=== PATIENT | male | born 1990 | race Caucasian/White ===

== ENCOUNTER 2017-12-31 20:22 | Inpatient (IN) | payer OTHER ==
[~2017-12-31] VITALS: Ht 167.6 cm; Wt 44.5 kg
[2017-12-31 20:45] VITALS: Ht 167.6 cm; Wt 44.5 kg
[2017-12-31 22:07] LABS: UA SPECIFIC GRAVITY 1.025 (1.005-1.035); microscopic required? YES; urine erythrocyte NEGATIVE (NEGATIVE)
[2017-12-31 22:38] LABS: AMPHETAMINE QUAL UR NONE DETECTED (See below)
[2017-12-31 22:48] LABS: T3 TOTAL 1.19 ng/mL
[2017-12-31 22:55] LABS: FREE T4 1.31 ng/dL (0.76-1.46); FREE THYROXINE INDEX 3.2 ug/dL (1.4-4.5); T4(THYROXINE) 10.4 ug/dL (4.7-13.3)
[2017-12-31 23:12] LABS: CK-MB < 0.5 ng/mL (0-3.6); CREATINE KINASE 36 U/L (39-308)
[2017-12-31 23:24] LABS: ERYTHROCYTE SED RATE 64 mm/hr (0-15)
[2017-12-31 23:27] LABS: PLATELET COUNT 318 x10^3mcL (130-400)
[2017-12-31 23:32] LABS: ALKALINE PHOSPHATASE 80 U/L (46-116); ALT/SGPT 16 U/L (16-63); AST/SGOT 26 U/L (15-37); BILIRUBIN TOTAL 0.31 mg/dL (0.20-1.00); C REACTIVE PROTEIN 4.7 mg/dL (<=0.9); CALCIUM 8.7 mg/dL (8.5-10.1); CHLORIDE SERUM 101 mmol/L (98-107); CREATININE SERUM 0.9 mg/dL (0.7-1.3); GFR1 > 60 mL/min; GLUCOSE SERUM 93 mg/dL (74-106); SODIUM SERUM 136 mmol/L (136-145)
[2017-12-31 23:33] LABS: ALBUMIN 2.7 g/dL (3.4-5.0); POTASSIUM SERUM 2.6 mmol/L (3.5-5.1); TOTAL PROTEIN, SERUM 8.6 g/dL (6.4-8.2)
[2017-12-31 23:36] LABS: BASOPHIL % 0 % (0-2); RED CELL DISTRIBUTION WIDTH 15.3 % (11.5-14.5)
[2018-01-01 00:59] VITALS: BP 117/78
[2018-01-01 06:04] VITALS: BP 111/71
[2018-01-01 06:42] LABS: PLATELET COUNT 303 x10^3mcL (130-400)
[2018-01-01 06:50] LABS: RED CELL DISTRIBUTION WIDTH 15.4 % (11.5-14.5)
[2018-01-01 07:11] LABS: CARBON DIOXIDE 21.6 mmol/L (21-32); CHLORIDE SERUM 109 mmol/L (98-107); CREATININE SERUM 0.6 mg/dL (0.7-1.3); GFR1 > 60 mL/min; GLUCOSE SERUM 93 mg/dL (74-106); MAGNESIUM 2.5 mg/dL (1.8-2.4); POTASSIUM SERUM 3.3 mmol/L (3.5-5.1); SODIUM SERUM 140 mmol/L (136-145)
[2018-01-01 07:25] LABS: IRON 14 ug/dL (65-170); TOTAL IRON BINDING CAPACITY 161 ug/dL (250-450)
[2018-01-01 08:56] LABS: AMPHETAMINE QUAL UR NONE DETECTED (See below)
[2018-01-01 09:01] VITALS: BP 115/76
[2018-01-01 11:05] LABS: BAND NEUTROPHIL 5 % (0-10); BASOPHIL 0 % (0-2); MONOCYTE 10 % (0-7); SEGMENTED NEUTROPHILS 65 % (37-75)
[2018-01-01 11:06] LABS: ovalocyte/elliptocyte 1+; rbc morphology (normal/abnorm) ABNORMAL (NORMAL)
[2018-01-01 11:07] LABS: burr cell (echinocyte) 1+
[2018-01-01 13:32] VITALS: BP 121/83
[2018-01-01 17:46] VITALS: BP 108/70
[2018-01-01 21:53] VITALS: BP 105/71
[2018-01-02 05:30] VITALS: BP 113/72
[2018-01-02 06:59] LABS: CARBON DIOXIDE 23.2 mmol/L (21-32); CHLORIDE SERUM 108 mmol/L (98-107); CREATININE SERUM 0.6 mg/dL (0.7-1.3); GFR1 > 60 mL/min; GLUCOSE SERUM 77 mg/dL (74-106); MAGNESIUM 1.9 mg/dL (1.8-2.4); POTASSIUM SERUM 3.3 mmol/L (3.5-5.1); SODIUM SERUM 138 mmol/L (136-145)
[2018-01-02 07:34] LABS: PLATELET COUNT 280 x10^3mcL (130-400)
[2018-01-02 09:08] VITALS: BP 118/73
[2018-01-02 10:45] LABS: BAND NEUTROPHIL 9 % (0-10); BASOPHIL 0 % (0-2); MONOCYTE 9 % (0-7); SEGMENTED NEUTROPHILS 62 % (37-75); ovalocyte/elliptocyte 1+; rbc morphology (normal/abnorm) ABNORMAL (NORMAL)
[2018-01-02 10:46] LABS: PLATELET MORPHOLOGY GIANT PLATELET SEEN; burr cell (echinocyte) 1+; tear drop cell (dacryocyte) 1+
[2018-01-02 13:47] VITALS: BP 122/70
[2018-01-02] MEDS ORDERED: DIF100 PO (14:40)
[2018-01-02 17:42] VITALS: BP 116/70
== END 2018-01-02 17:57 | disposition home or self-care (01) | DRG 391 ==
LOC: ED 20:22 → DU 01-01 00:06
PROVIDERS: Family Medicine; Specialist
DX: K20.9 Esophagitis, unspecified (principal); N17.0 Acute kidney failure with tubular necrosis; E43 Unspecified severe protein-calorie malnutrition; R65.10 Systemic inflammatory response syndrome (SIRS) of non-infectious origin without acute organ dysfunction; B37.0 Candidal stomatitis; E87.6 Hypokalemia; Z88.0 Allergy status to penicillin; Z91.048 Other nonmedicinal substance allergy status; R73.03 Prediabetes; D50.9 Iron deficiency anemia, unspecified; R13.10 Dysphagia, unspecified
CPT/HCPCS: 36600; 83880; 84439; 87804; J0692; J0696; J1450; J3370; J3475; J3480; J7030; Q0092

== ENCOUNTER 2018-06-12 14:44 | Emergency (ER) | payer OTHER ==
[~2018-06-12] VITALS: Ht 165.1 cm; Wt 47.2 kg
[~2018-06-12 14:44] MED LIST: DIF100 PO
[2018-06-12 15:12] VITALS: Ht 165.1 cm; Wt 47.2 kg
[2018-06-12 17:53] LABS: CALCIUM 8.6 mg/dL (8.5-10.1); CARBON DIOXIDE 25.2 mmol/L (21-32); CHLORIDE SERUM 98 mmol/L (98-107); GFR1 > 60 mL/min; GLUCOSE SERUM 85 mg/dL (74-106); POTASSIUM SERUM 3.4 mmol/L (3.5-5.1); SODIUM SERUM 131 mmol/L (136-145)
[2018-06-12 17:57] LABS: ALKALINE PHOSPHATASE 94 U/L (46-116); ALT/SGPT 11 U/L (16-63); AMYLASE 45 U/L (25-115); AST/SGOT 22 U/L (15-37); BILIRUBIN TOTAL 0.31 mg/dL (0.20-1.00); LIPASE 118 IU/L (73-393); PLATELET COUNT 257 x10^3mcL (130-400)
[2018-06-12 17:58] LABS: RED CELL DISTRIBUTION WIDTH 16.6 % (11.5-14.5)
[2018-06-12 18:00] LABS: ALBUMIN 2.8 g/dL (3.4-5.0); TOTAL PROTEIN, SERUM 9.4 g/dL (6.4-8.2)
[2018-06-12 18:36] VITALS: BP 101/67
[2018-06-12 18:36] LABS: BAND NEUTROPHIL 6 % (0-10); METAMYELOCTE 3 % (0-2); MONOCYTE 4 % (0-7); SEGMENTED NEUTROPHILS 79 % (37-75)
[2018-06-12 18:38] LABS: ovalocyte/elliptocyte 2+; rbc morphology (normal/abnorm) ABNORMAL (NORMAL)
[2018-06-12 18:39] LABS: PLATELET MORPHOLOGY PLATELETS NORMAL
== END 2018-06-12 19:09 | disposition home or self-care (01) ==
LOC: ED 14:44
PROVIDERS: Emergency Medicine
DX: R10.13 Epigastric pain (principal); D64.9 Anemia, unspecified; J45.909 Unspecified asthma, uncomplicated; Z88.0 Allergy status to penicillin
CPT/HCPCS: J1885

== ENCOUNTER 2018-09-22 17:51 | Emergency (ER) | payer SELFPAY ==
[~2018-09-22] VITALS: Ht 165.1 cm; Wt 47.2 kg
[2018-09-22 18:38] VITALS: Ht 165.1 cm; Wt 47.2 kg
[2018-09-22 21:25] VITALS: BP 107/69
== END 2018-09-22 21:35 | disposition home or self-care (01) ==
LOC: ED 17:51
DX: K59.00 Constipation, unspecified (principal); J45.909 Unspecified asthma, uncomplicated; Z88.0 Allergy status to penicillin
CPT/HCPCS: Q0092

== ENCOUNTER 2018-10-31 13:35 | Inpatient (IN) | payer MEDICAID ==
[~2018-10-31] VITALS: Ht 167.6 cm; Wt 45.0 kg
[2018-10-31 13:38] VITALS: Ht 167.6 cm; Wt 45.0 kg
[2018-10-31 15:22] LABS: PLATELET COUNT 156 x10^3mcL (130-400)
[2018-10-31 15:29] LABS: RED CELL DISTRIBUTION WIDTH 23.1 % (11.5-14.5)
[2018-10-31 15:30] LABS: CALCIUM 7.2 mg/dL (8.5-10.1); CARBON DIOXIDE 19.4 mmol/L (21-32); CHLORIDE SERUM 102 mmol/L (98-107); CREATININE SERUM 0.7 mg/dL (0.7-1.3); GFR1 > 60 mL/min; GLUCOSE SERUM 84 mg/dL (74-106); SODIUM SERUM 133 mmol/L (136-145)
[2018-10-31 15:42] LABS: ALKALINE PHOSPHATASE 71 U/L (46-116); ALT/SGPT 12 U/L (16-63); AST/SGOT 17 U/L (15-37); BILIRUBIN TOTAL 0.2 mg/dL (0.20-1.00); LIPASE 36 IU/L (73-393)
[2018-10-31 15:47] LABS: T4(THYROXINE) 3.4 ug/dL (4.7-13.3); TOTAL PROTEIN, SERUM 5.3 g/dL (6.4-8.2)
[2018-10-31 16:41] LABS: CHOLESTEROL < 50 mg/dL (<200); HDL CHOLESTEROL 8 mg/dL (40-60)
[2018-10-31 17:06] LABS: BAND NEUTROPHIL 10 % (0-10); BASOPHIL 0 % (0-2); MONOCYTE 12 % (0-7); PLATELET MORPHOLOGY PLATELETS NORMAL; SEGMENTED NEUTROPHILS 69 % (37-75); rbc morphology (normal/abnorm) ABNORMAL (NORMAL)
[2018-10-31 17:47] LABS: AMPHETAMINE QUAL UR NONE DETECTED (See below); UA SPECIFIC GRAVITY <=1.005 (1.005-1.035); microscopic required? YES; urine erythrocyte NEGATIVE (NEGATIVE)
[2018-10-31 17:51] LABS: TRIGLYCERIDES 55 mg/dL (<150)
[2018-10-31 17:52] LABS: CHOLESTEROL < 50 mg/dL (<200); CHOLESTEROL/HDL RATIO 6.2; HDL CHOLESTEROL 8 mg/dL (40-60)
[2018-10-31] MEDS ORDERED: BIKTARVY 50-201 EACH PO (17:55)
[2018-10-31 19:18] VITALS: BP 85/49
[2018-10-31 21:11] VITALS: BP 87/51
[2018-11-01 06:11] VITALS: BP 85/54
[2018-11-01 07:26] LABS: CARBON DIOXIDE 16.2 mmol/L (21-32); CHLORIDE SERUM 107 mmol/L (98-107); CREATININE SERUM 0.6 mg/dL (0.7-1.3); GFR1 > 60 mL/min; GLUCOSE SERUM 70 mg/dL (74-106); MAGNESIUM 2.3 mg/dL (1.8-2.4); PHOSPHOROUS 3.9 mg/dL (2.5-4.9); POTASSIUM SERUM 3.5 mmol/L (3.5-5.1); SODIUM SERUM 134 mmol/L (136-145)
[2018-11-01 07:50] LABS: PLATELET COUNT 148 x10^3mcL (130-400)
[2018-11-01 07:51] LABS: RED CELL DISTRIBUTION WIDTH 23.4 % (11.5-14.5)
[2018-11-01 08:05] VITALS: BP 90/54
[2018-11-01 08:12] LABS: IRON 18 ug/dL (65-170); TOTAL IRON BINDING CAPACITY 87 ug/dL (250-450)
[2018-11-01 10:06] LABS: BAND NEUTROPHIL 9 % (0-10); BASOPHIL 0 % (0-2); MONOCYTE 10 % (0-7); SEGMENTED NEUTROPHILS 71 % (37-75); rbc morphology (normal/abnorm) ABNORMAL (NORMAL)
[2018-11-01 10:07] LABS: PLATELET MORPHOLOGY PLATELETS NORMAL
[2018-11-01 13:00] VITALS: BP 95/59
[2018-11-01 16:31] VITALS: BP 98/60
[2018-11-01 20:48] VITALS: BP 87/55
[2018-11-02] VITALS (7 sets, daily range): BP systolic 88–99; BP diastolic 52–57
[2018-11-02 06:51] LABS: CALCIUM 6.8 mg/dL (8.5-10.1); CARBON DIOXIDE 17.5 mmol/L (21-32); CHLORIDE SERUM 106 mmol/L (98-107); CREATININE SERUM 0.5 mg/dL (0.7-1.3); GFR1 > 60 mL/min; GLUCOSE SERUM 76 mg/dL (74-106); POTASSIUM SERUM 3.4 mmol/L (3.5-5.1); SODIUM SERUM 134 mmol/L (136-145)
[2018-11-02 07:46] LABS: PLATELET COUNT 125 x10^3mcL (130-400); RED CELL DISTRIBUTION WIDTH 23.3 % (11.5-14.5)
[2018-11-02 10:48] LABS: BAND NEUTROPHIL 10 % (0-10); BASOPHIL 0 % (0-2); MONOCYTE 11 % (0-7)
[2018-11-02 10:49] LABS: PLATELET MORPHOLOGY PLATELETS NORMAL; SEGMENTED NEUTROPHILS 69 % (37-75); rbc morphology (normal/abnorm) ABNORMAL (NORMAL)
[2018-11-03 03:30] VITALS: BP 91/61
[2018-11-03 04:30] VITALS: BP 86/49
[2018-11-03 08:20] LABS: CARBON DIOXIDE 18.6 mmol/L (21-32); CHLORIDE SERUM 111 mmol/L (98-107); CREATININE SERUM 0.5 mg/dL (0.7-1.3); GFR1 > 60 mL/min; GLUCOSE SERUM 78 mg/dL (74-106); SODIUM SERUM 139 mmol/L (136-145)
[2018-11-03 08:24] LABS: POTASSIUM SERUM 2.9 mmol/L (3.5-5.1)
[2018-11-03 08:38] LABS: PLATELET COUNT 109 x10^3mcL (130-400)
[2018-11-03 09:49] VITALS: BP 84/51
[2018-11-03 12:55] VITALS: BP 90/48
[2018-11-03 13:28] LABS: BAND NEUTROPHIL 5 % (0-10); BASOPHIL 0 % (0-2); MONOCYTE 12 % (0-7); SEGMENTED NEUTROPHILS 83 % (37-75)
[2018-11-03 13:31] LABS: PLATELET MORPHOLOGY PLATELETS DECREASED; ovalocyte/elliptocyte 1+; rbc morphology (normal/abnorm) ABNORMAL (NORMAL)
[2018-11-03 16:48] VITALS: BP 95/54
[2018-11-03 20:46] VITALS: BP 87/51
[2018-11-04 06:24] VITALS: BP 95/54
[2018-11-04 06:54] LABS: PLATELET COUNT 116 x10^3mcL (130-400); RED CELL DISTRIBUTION WIDTH 22.5 % (11.5-14.5)
[2018-11-04 06:59] LABS: CALCIUM 7.2 mg/dL (8.5-10.1); CARBON DIOXIDE 15.4 mmol/L (21-32); CHLORIDE SERUM 114 mmol/L (98-107); CREATININE SERUM 0.5 mg/dL (0.7-1.3); GFR1 > 60 mL/min; GLUCOSE SERUM 82 mg/dL (74-106); MAGNESIUM 1.7 mg/dL (1.8-2.4); PHOSPHOROUS 2.9 mg/dL (2.5-4.9); POTASSIUM SERUM 3.9 mmol/L (3.5-5.1); SODIUM SERUM 141 mmol/L (136-145)
[2018-11-04] MEDS ORDERED: DIF100 PO (11:17)
[2018-11-04] MEDS ORDERED: BACTRIM DS1 TAB PO (11:40)
[2018-11-04] MEDS ORDERED: ZITHROMAX500 M1 IV (11:42)
[2018-11-04 11:56] VITALS: BP 95/54
[2018-11-04 12:01] LABS: ATYPICAL LYMPH 2 %; BAND NEUTROPHIL 0 % (0-10); BASOPHIL 0 % (0-2); MONOCYTE 6 % (0-7); PLATELET MORPHOLOGY PLATELETS DECREASED; SEGMENTED NEUTROPHILS 86 % (37-75); rbc morphology (normal/abnorm) ABNORMAL (NORMAL)
[2018-11-04] MEDS ORDERED: ZITHROMAX500 MG PO (12:22)
== END 2018-11-04 12:44 | disposition home or self-care (01) | DRG 893 ==
LOC: ED 13:35 → DU 17:08 → MU 17:08 → DU 18:50 → MU 11-03 12:09
PROVIDERS: Emergency Medicine; ADMIT General Practice
DX: B37.81 Candidal esophagitis (principal); B20 Human immunodeficiency virus [HIV] disease; E43 Unspecified severe protein-calorie malnutrition; N17.0 Acute kidney failure with tubular necrosis; R64 Cachexia; B37.0 Candidal stomatitis; E86.0 Dehydration; E87.2 Acidosis; R62.7 Adult failure to thrive; D50.9 Iron deficiency anemia, unspecified; R13.10 Dysphagia, unspecified; R19.7 Diarrhea, unspecified; E87.1 Hypo-osmolality and hyponatremia; M62.50 Muscle wasting and atrophy, not elsewhere classified, unspecified site; E87.6 Hypokalemia; J45.909 Unspecified asthma, uncomplicated; Z68.1 Body mass index [BMI] 19.9 or less, adult
CPT/HCPCS: 36600; 82962; 87046; 87046-59; J1450; J1940; J1956; J2270; J3475; J3480; J7030; Q0092

== ENCOUNTER 2018-11-09 20:33 | Inpatient (IN) | payer MEDICAID ==
[~2018-11-09] VITALS: Ht 167.6 cm; Wt 43.2 kg
[~2018-11-09 20:33] MED LIST changes: +BACTRIM DS1 TAB PO; +BIKTARVY 50-201 EACH PO; +ZITHROMAX500 M1 IV; +ZITHROMAX500 MG PO
--- NOTE | 2018-11-09 20:46 | NUR ---
PT AAOX4, NO S/S OF DISTRESS NOTED, PT
--- NOTE | 2018-11-09 20:46 | NUR ---
PT AAOX4, NO S/S OF DISTRESS NOTED. PT REPORTS SOB AND STATES "ITS MY ASTHMA". PT RESPIRATIONS 24, O2 SAT AT 100% ON RA, LUNG SOUNDS CLEAR BILATERALLY ON AUSCULTATION. PT ALSO C/O BILATERAL LEG PAIN. ON ASSESSMENT NOTED BILATERAL SWELLING TO BILATERAL FEET WITH 3 PITTING. PT REPORTS HISTORY OF HIV CONTRACTED THROUGH SEX. PT MOTHER AT BEDSIDE.
--- NOTE | 2018-11-09 21:41 | NUR ---
RADHA LOPEZ AT BEDSIDE TO START IV.
[2018-11-09 22:28] LABS: CALCIUM 7.4 mg/dL (8.5-10.1); CARBON DIOXIDE 15.6 mmol/L (21-32); CHLORIDE SERUM 107 mmol/L (98-107); GFR1 > 60 mL/min; GLUCOSE SERUM 103 mg/dL (74-106); POTASSIUM SERUM 3.8 mmol/L (3.5-5.1); SODIUM SERUM 140 mmol/L (136-145)
[2018-11-09 22:38] LABS: PLATELET COUNT 114 x10^3mcL (130-400)
[2018-11-09 22:40] LABS: RED CELL DISTRIBUTION WIDTH 22.6 % (11.5-14.5)
[2018-11-09 22:44] LABS: ALKALINE PHOSPHATASE 67 U/L (46-116); ALT/SGPT 7 U/L (16-63); AST/SGOT 21 U/L (15-37); BILIRUBIN TOTAL 0.32 mg/dL (0.20-1.00)
[2018-11-09 22:47] LABS: ALBUMIN 0.6 g/dL (3.4-5.0); TOTAL PROTEIN, SERUM 4.7 g/dL (6.4-8.2)
[2018-11-09 22:50] LABS: BAND NEUTROPHIL 3 % (0-10); MONOCYTE 9 % (0-7); SEGMENTED NEUTROPHILS 72 % (37-75)
[2018-11-09 22:52] LABS: rbc morphology (normal/abnorm) ABNORMAL (NORMAL)
[2018-11-09 22:53] LABS: PLATELET MORPHOLOGY PLATELETS DECREASED; acanthocyte (spur cell) 1+
[2018-11-10] VITALS (9 sets, daily range): BP systolic 81–90; BP diastolic 44–52; Ht 167.6 cm; Wt 43.2 kg
[2018-11-10] MEDS ORDERED: SULFAMETHOXAZOL1 TA3 PO (00:05)
[2018-11-10] MEDS ORDERED: LOPERAMIDE HCL2 MG PO (00:05)
[2018-11-10] MEDS ORDERED: LORATADINE10 M3 PO (00:05)
[2018-11-10] MEDS ORDERED: MEGL (00:06)
[2018-11-10] MEDS ORDERED: BIKTARVY 50-201 EACH PO (00:06)
[2018-11-10] MEDS ORDERED: FLUCONAZOLE100 MG (00:06)
--- NOTE | 2018-11-10 00:13 | NUR ---
REPORT GIVEN TO MARIANNA LOEPZ.
[2018-11-10 00:17] LABS: MAGNESIUM 1.6 mg/dL (1.8-2.4); PHOSPHOROUS 3.8 mg/dL (2.5-4.9)
--- NOTE | 2018-11-10 00:20 | NUR ---
RECEIVED PT FROM ED [facility]IA [facility], CAME IN DUE TO SOB X1 DAY. AAOX4. DENIES HEADACHE/DIZZINESS. C/O MILD SOB, PLACED ON 2LPM/NC, O2 EAR=064%. DENIES CHEST PAIN/PRESSURE, SINUS TACHYCARDIA, HR AT =107. PALE. W/ +3-4 PITTING EDEMA ON BLE. WEAK PEDAL PULSES. DENIES ABDOMINAL DISCOMFORT. VOIDS. W/ INTRAOSSEOUS ON THE LLE, NO DISCOLORATION/SWELLING NOTED ON THE SITE. SIDE RAILS UPX2. CALL LIGHT ON REACH. PT'S MOTHER AT BEDSIDE. ENDORSED TO PRIMARY NURSE MARIANNA FOR CONTINUITY OF CARE
--- NOTE | 2018-11-10 00:40 | NUR ---
ABLE TO INSERT IV TO RFA #22 WITH GOOD BLOOD RETURN.CALLED ER CHARGE NURSE TO TAKE OUT I.O. TO LLE.PT TOLERATED PROCEDURE.PACK DRESSING APPLIED.WILL CONTINUE TO MONITOR.
--- NOTE | 2018-11-10 03:16 | NUR ---
DR. MCLAUGHLIN MADE AWARE OF REPEATED LACTIC ACISD 8.3 VIA [employer].
[2018-11-10 04:00] LABS: microscopic required? YES; urine erythrocyte NEGATIVE (NEGATIVE)
[2018-11-10 04:09] LABS: AMPHETAMINE QUAL UR NONE DETECTED (See below)
[2018-11-10 04:32] LABS: CALCIUM 7.3 mg/dL (8.5-10.1); CARBON DIOXIDE 16.9 mmol/L (21-32); CHLORIDE SERUM 110 mmol/L (98-107); CREATININE SERUM 0.8 mg/dL (0.7-1.3); GFR1 > 60 mL/min; GLUCOSE SERUM 79 mg/dL (74-106); MAGNESIUM 1.6 mg/dL (1.8-2.4); PHOSPHOROUS 3.7 mg/dL (2.5-4.9); POTASSIUM SERUM 3.8 mmol/L (3.5-5.1); SODIUM SERUM 141 mmol/L (136-145)
[2018-11-10 04:36] LABS: PLATELET COUNT 87 x10^3mcL (130-400)
[2018-11-10 04:37] LABS: RED CELL DISTRIBUTION WIDTH 22.4 % (11.5-14.5)
--- NOTE | 2018-11-10 04:40 | NUR ---
DR. MCLAUGHLIN MADE AWARE OF THIS AM WBC @ 1.6 ,H/H 5.4/16.4.ALSO AWARE BLOOD HAS ANTIBODIES.CONFIRMED RECEIVED [facility]ATE ABOUT LATEST LACTIC ACID 8.3.
--- NOTE | 2018-11-10 04:51 | NUR ---
PT SLEPT WELL.BREATHING EASY AND NON-LABORED.O2 @ 2L/MIN VIA N/C.BOLUS COMPLETED ORDERED.REMAINS ON REVERSE ISOLATION.WILL OBSERVE PROTOCOL.RECEIVED A CALL FROM BLOOD BANK AND INFORMED NURSE THAT BLOOD WILL BE REQUESTED AT [facility] AND WILL CALL THE UNIT ONCE ITS AVAILABLE.WILL INFORM AM NURSE.
[2018-11-10 05:12] LABS: BAND NEUTROPHIL 4 % (0-10); METAMYELOCTE 1 % (0-2); MONOCYTE 12 % (0-7); PLATELET MORPHOLOGY PLATELETS DECREASED; SEGMENTED NEUTROPHILS 63 % (37-75); acanthocyte (spur cell) 1+; rbc morphology (normal/abnorm) ABNORMAL (NORMAL)
[2018-11-10 05:15] LABS: tear drop cell (dacryocyte) 1+
--- NOTE | 2018-11-10 05:42 | NUR ---
OBTAINED CONSENT FOR BLOOD TRANSFUSION.DR. FOSTER MADE AWARE OF THIS AM'S BP@ 90/44 MMHG,HR 96.WILL ENDORSE TO AM NURSE.
--- NOTE | 2018-11-10 06:12 | NUR ---
[facility] SENT TO PHARMACY FOR VERIFICATION.WILL ENDORSE TO AM NURSE.
--- NOTE | 2018-11-10 07:12 | NUR ---
RECEIVED REPORT FROM MARIANNA LOPEZ. PT RESTING COMFORATABLY IN BED WITH DR PASTOR AT BEDSIDE PERFORMNING AN ASSESSMENT. IV TO RFA IS PATENT AND INFUSING NS @ 40 ML/HR. NO REDNESS OR PAIN. TELE # [address] PT DENIES CHEST PAIN. PT ON O2 2L NC. NO C/O SOB AND NO DISTRESS NOTED. ALL QUESTIONS AND CONCERNS ADDRESSED.
--- NOTE | 2018-11-10 09:52 | NUR ---
ROUNDS: DR TUCKER, RESIDENTS, AND PRIMARY RN AT BEDSIDE. DISCUSSED HISTPRY OF PRESENT ILLNESS, OUTPATIENT DOCTOR, INFORMED DR TUCKER AND DR PASTOR THAT PT HAS LOW BP 84/47 AND LACTIC ACID 4.2 ALSO THAT PT WAS UNABLE TO HAVE CT ABD PELVIS THIS AM DUE TO LOW BP. TRANSPORTATION UNCOMFORTABLE WITH TAKING PATIENT IN CURRENT CONDITION. DR TO ORDER BOLUS AND REPEAT LACTIC ACID. ULTRASOUND OF LEGS TO R/O DVT. PLAN IS TO CONTINUE TREATMENT. PT VERBALIZED UNDERSTANDING AND ALL QUESTIONS AND CONCERNS WERE ADDRESSED.
--- NOTE | 2018-11-10 11:05 | NUR ---
PT HAVING USV OF BLE.
--- NOTE | 2018-11-10 14:27 | NUR ---
IN TO SEE PATIENT AND ADMINISTER MEDIOCATION (SEE EMAR). PT RESTING COMFORTABLY IN BED WITH MOTHER AT BEDSIDE. PT REQUESTING ICE CREAM. PT INFORMED THAT KITCHEN IS CURRENTLY CLOSED IN PREPARATION FOR DINNER BUT A MESSAGE WILL BE SENT TO ADD IT TO DINNER. ALL OTHER NEEDS MET.
--- NOTE | 2018-11-10 15:55 | NUR ---
Discount pharmacy card and list to low cost medical clinics given to patient by Raymond Rivera.
--- NOTE | 2018-11-10 17:36 | NUR ---
PT TAKEN DOWN FOR CT VIA BED ACCOMPANIED BY DERICK LOPEZ. DR PASTOR AWARE OF PT BP 81/46 AND OK TO CONTINUE WITH CT. SECOND 1000 ML BOLUS ORDERED FOR PATIENT.
--- NOTE | 2018-11-10 19:06 | NUR ---
1831= Spoke to Genet (Admitting) from [facility]. Told me to fax the H and P and recent progress notes of the patient & Face sheet. 1911= Faxed all paper works needed from [facility]
--- NOTE | 2018-11-10 19:17 | NUR ---
1916= Spoke to Genet again, told her paper faxed, She said She will call if bed is available. Endorsed to Jenny Santana, plaster and stucco worker [employer]
--- NOTE | 2018-11-10 19:35 | NUR ---
RECIEVED PT IN BED FROM [place], NO SIGNS OF ACUTE DISTRESS AT THIS TIME, ASSESSMENT DONE, PT HAS NO COMPLAINTS OF PAIN OR RESPIRATORY DISTRESS AT THIS TIME, TELE 13, NSR, IV TO THE RFA 22 GAUGE, SAFETY PRECAUTIONS IN PLACE WILL CONTINUE TO MONITOR
--- NOTE | 2018-11-10 19:49 | NUR ---
REPORT GIVEN TO JUANI LOPEZ PT RESTING COMFORTABLY IN BED WITH MOTHER AT BEDSIDE. ALL NEEDS MET. NOTIFIED THAT BLOOD BANK CALLED AND UNITS ARE READY. PT ON O2 3L NC. NO DISTRESS NOTED. NO C/O PAIN. ALL QUESTIONS AND CONCERNS ADDRESSED.
--- NOTE | 2018-11-10 20:10 | NUR ---
Spoke to the [facility] an they said they cannot accept the in pt that is their restrictions for [facility]/[place]. It has to be the around our area, Because pt is an in pt in our hospital. Called [facility] and spoke to Cheryle about the condition of this pt and she said she did not have a bed. A lot of waiting for admission. But she said to faxed the paper works needed and they will prioritized it in the morning right now they don't have a bed. Faxed paper works to Cheryle warehouse representative.
--- NOTE | 2018-11-10 20:32 | NUR ---
Spoke to Bhargavi from the [facility]'s packing house supervisor's office and they said and confirmed that they received the paper work they will follow up in the morning and also the second time [facility]
--- NOTE | 2018-11-10 20:53 | NUR ---
Spoke to the dye house hand of [facility] Sinan and told me that they do not have a bed for now and also she will try to find an accepting doctor for [place] pt in the hospital and will try to be called in 1 hour.
--- NOTE | 2018-11-10 21:08 | NUR ---
Spoke to Arnaud Nursing supervisor water treatment plant of [facility] of pt possible transfer. Infomed him that this pt is needing 2 HIV/Aids medication and called me back that they do not have the medications that i mentioned.He clarified it with their pharmacy.
--- NOTE | 2018-11-10 21:25 | NUR ---
FIRST UNIT OF PRBCS STARTED YINKA, TEMP 98.0, HR 61, BP 89/49, RR 18, 02 100, WILL CONTINUE TO MONITOR
--- NOTE | 2018-11-10 21:40 | NUR ---
15 MIN INTO ADMINISTRATION OF PRBCS , PT TOLERATING, VITALS TEMP 98.8, PULSE, 92, BP 86/48, RR 20, 02 100, WILL CONTINUE TO MONITOR
--- NOTE | 2018-11-10 22:19 | NUR ---
Spoke to Sinan again from [facility] and she said they still do not have a bed. and the accepting DR is dr. Briscoe and tel no. [phone]. Gave this no. to Dr. Bolanos.
--- NOTE | 2018-11-10 22:21 | NUR ---
Tried to call [facility] and spoke to Marta and she wants to make sure the dossage of medications of the pt to make sure we have the dose and kind of medications. Asked the pt he does not know the dose. ([facility] nurse).
[2018-11-11] VITALS (10 sets, daily range): BP systolic 80–100; BP diastolic 46–56
--- NOTE | 2018-11-11 00:35 | NUR ---
FIRST UNIT OF PRBCS FINISHED, PT TOLERATED WELL, VITALS TEMP 99, HR 90, BP 86/46, RR 20, 02 100, WILL CONTINUE TO MOINITOR.
--- NOTE | 2018-11-11 02:10 | NUR ---
SECOND UNIT OF PRBCS STARTED VITALS T: 98.8, PULSE:88, BP 81/46 RR: 20, 02 100, WILL CONTINUE TO MONITOR
--- NOTE | 2018-11-11 02:33 | NUR ---
15 MIN INTO ADMINISTRATION ON SECOND UNIT OF PRBCS VITALS TEMP 98.6, HR 92, BP 80/46, RR 20, 02 100, WILL CONTINUE TO MONITOR.
--- NOTE | 2018-11-11 02:58 | NUR ---
PT BLOOD PRESSURE 80/46, DR GARZA NOTIFIED, SAID SHE WOULD PUT IN ORDERS FOR BOLUS AND MIDODRINE.
--- NOTE | 2018-11-11 03:00 | NUR ---
Tried to follow up with Ramses regarding the 2 medications and Marta told me to talk to the pharmacy and she transfered me and asked Waqas if they have these medications the [facility] f[facility] and later Waqas told me that they have it there. Dr. Bolanos made aware. But Marta suggested about following it up in the morning because of they also want to know the dossage. called the mother Jesusita and texted me all the medications the pt is taking at home. But these medications are new, and never started yet. So Dr Bolanos said to continue follow up at home. Other hospitals that i called previous did not follow up with me if the have a bed.
--- NOTE | 2018-11-11 04:21 | NUR ---
PT BP 82/49 AFTER 500 ML BOLUS, CALLED DR GARZA, SHE ORDERED 1 L BOLUS, LUNG SOUNDS CTA, BOLUS STARTED.
--- NOTE | 2018-11-11 04:53 | NUR ---
BLOOD TRANSFUSION FINISHED, VITALS TEMP 98.6, HR 90, 80/46, RR 20, 02 100, PT TOLERATED SECOND TRANSFUSION, WILL CONTINUE TO MONITOR.
--- NOTE | 2018-11-11 06:08 | NUR ---
Spoke to Esme regarding the availability of the medications in [place] but i told them they have a lot of questions regarding reimbursement of pt's care. notified them about that pt is a self pay. DR. Victoria was made aware that we were planning to send to ICU because of low BP, inspite of the blood transfusion and his breathing was mildly dyspneic. Dr. Bolanos told me that pt is stable to stay in the floor and DR Victoria was made aware of pt's condition.
--- NOTE | 2018-11-11 07:35 | NUR ---
RECEIVED PT. IN BED A/A/O X3. NO SOB, NO N/V NOTED. PT. DENIES ANY PAIN AT THIS TIME. GENERALIZED WEAKNESS NOTED. NS RUNNING AT 100 CC/HR VIA IV SITE AT R FA. PT. IS ON REVERSE ISOLATION. SCD TO BLE MAINTAINED. BED IN LOW POS., CALL LIGHT WITHIN REACH. SIDE RAILS UP X3.
[2018-11-11 09:04] LABS: PLATELET COUNT 68 x10^3mcL (130-400); RED CELL DISTRIBUTION WIDTH 18.2 % (11.5-14.5)
--- NOTE | 2018-11-11 09:15 | NUR ---
REPORTED WBC (2.0) TO DR. PASTOR. NO FURTHER ORDER RECEIVED AT THIS TIME.
[2018-11-11 09:36] LABS: CALCIUM 7.2 mg/dL (8.5-10.1); CARBON DIOXIDE 18.2 mmol/L (21-32); CHLORIDE SERUM 115 mmol/L (98-107); CREATININE SERUM 0.4 mg/dL (0.7-1.3); GFR1 > 60 mL/min; MAGNESIUM 1.7 mg/dL (1.8-2.4); PHOSPHOROUS 3.4 mg/dL (2.5-4.9); POTASSIUM SERUM 3.4 mmol/L (3.5-5.1); SODIUM SERUM 144 mmol/L (136-145)
[2018-11-11 09:38] LABS: GLUCOSE SERUM 53 mg/dL (74-106)
--- NOTE | 2018-11-11 09:45 | NUR ---
REPORTED GLUCOSE LEVEL (53) FROM AM BMP TO DR. PASTOR. NO FURTHER ORDER RECEIVED AT THIS TIME.
--- NOTE | 2018-11-11 13:00 | NUR ---
SPOKE WITH IRAJ (CHILD DEVELOPMENT DIRECTOR.) WHO STATED THAT [facility] WILL NOT BE AVAILABLE FOR PO ADMINISTRATION UNTIL TOMORROW 11/12/18.
--- NOTE | 2018-11-11 14:48 | NUR ---
Initial Nutrition Assessment: 219T/B MICHELLE SHAW HR Dx: Intractable vomiting, End stage AIDS PMHx: HIV (September 2017), AIDS, Asthma PSHx: none Labs: K 3.4, BUN 53L, CA 7.2L, MG 1.7L Meds: Albuminar, difulcan, ferrous sulfate, flagyl, megace, morphine, zofran Diet: regular PO Intake: not documented Ht: 167.64cm (66") Wt: 43.1 kg (94.8#) BMI: 15.4 kg/m2(underweight) Bed scale: 92.9# IBW:142# (64.5 kg) %IBW: 66 UBW: Age: 28/M Food Allergies: NKFA Skin: Scabs to forehead Juan Luis: 19 Edema: +3 edema to RLE, +2 LLE GI: Last BM: 11/11 Per H&P, Patient is a 28 yo M w PMH HIV w AIDS presented for evaluation of his leg swelling b/l. Admits to cough and diarrhea. Otherwise denies chest pain, odynophagia, abdominal pain, fever, nausea or vomiting. Pt saw his HIV doctor recently, who prescribed megace for appetite improvement. Of note, pt was just recently hospitalized for failure to thrive due to esophageal candidiasis RDN Visit (11/11): pt looked severely emaciated and underweight. Pt's mother was at bedside. Pt said he had some of his breakfast this morning and has good appetite. Pt is willing to consume ensure enlive. Told the pt that he can order double portions for his meals and place special food requests. Diet clerks were informed. Problem with: N/V/D/C: no Problems with: Chewing/Swallowing: no Current appetite: good Recent wt change: 6# in 1 week %wt change: 7% (significant) Vitamin/Supplement use: MVI Special diet at home: Regular Physical activity: none Nutrition education given: During recent admission, RD saw pt on 11/03 and diet education on 'HIV/AIDS managing diarrhea' was provided. This time [facility] handout on ' HIV/AIDS: Managing nausea and vomiting' was provided to patient's mother as pt was sleepy. Food-drug interactions: megace- take with food to reduce GI distress, Education given: no as pt was sleepy. Estimated Nutritional Needs Based on body weight 43.1 kg Energy: 3828-9599 kcal/d (35-40 kcal/kg- weight gain) Protein: 51.7- 64.6 g/d (1.2-1.5 g/kg)- d/t loss of LBM Fluid: 2050-1710 ml/d (1 ml/kcal) or per doctor Nutrition Diagnosis 1. Malnutrition related to AIDS as evidenced by unintentional weight loss of 6# in one week, loss of LBM, BMI 15.4 kg/m2 Intervention 1. Recommend Ensure Enlive BID 2. Recommend Neutropenic regular diet. Monitor/Evaluate Goal: PO intake at least 75% of estimated needs Monitor: PO intake, Labs, GI function F/U in 2-3 days as high risk 11/13-11/14
--- NOTE | 2018-11-11 14:48 | NUR ---
1. Recommend Ensure Enlive BID 2. Recommend Neutropenic regular diet.
[2018-11-11 16:47] LABS: ATYPICAL LYMPH 2 %; BAND NEUTROPHIL 6 % (0-10); BASOPHIL 0 % (0-2); MONOCYTE 4 % (0-7); SEGMENTED NEUTROPHILS 84 % (37-75)
[2018-11-11 16:48] LABS: rbc morphology (normal/abnorm) ABNORMAL (NORMAL)
--- NOTE | 2018-11-11 19:20 | NUR ---
REMAINS IN STABLE CONDITION AT THIS TIME. WILL CONTINUE TO MONITOR. MOTHER AT BEDSIDE.
--- NOTE | 2018-11-11 19:28 | NUR ---
RECEIVED PT FROM DAY SHIFT RN. PT IS AA&O X4 AND ABLE TO FOLLOW COMMANDS. PT DENIES CHEST PAIN OR SHORTNESS OF BREATH AT THIS TIME. THERE ARE NO USE OF ACCESSORY MUSCLES OR LABORED BREATHING ON ASSESSMENT. TELE MONITOR IS IN PLACE. PT DENIES PAIN AT THIS TIME. FAMILY AT THE BEDSIDE. REVERSE ISOLATION PRECAUTIONS IMPLEMENTED WHEN ASSESSING AND CARING FOR PATIENT. THERE ARE 2 RFA IVS THAT ARE CLEAN DRY AND INTACT AT THIS TIME. SAFETY MEASURES ARE IN PLACE. CALL LIGHT IS WITHIN REACH. WILL CONTINUE TO MONITOR.
--- NOTE | 2018-11-11 21:18 | NUR ---
INFORMED DR GARZA THAT PT COMPLAINING OF DIZZINESS AND SHORTNESS OF BREATH. BP: 95/49 MAP 70 HR: 102. DR GARZA ORDERED ANTIVERT. WILL ADMIINISTER TO PT. PT CURRENTLY ON 5L O2 CALLED RT TO PERFORM BREATHING TREATMENT. AWAITING DR GARZA TO ASSESS PT.
--- NOTE | 2018-11-11 21:52 | NUR ---
1L IV BOLUS RUNNING PER DR GARZA ORDER. WILL CONTINUE TO MONITOR PT. ANTIVERT HELD AT THIS TIME PER DR GARZA ORDER.
--- NOTE | 2018-11-11 22:58 | NUR ---
REASSESSED VITAL SIGNS 97/56 MAP 64 HR: 100. PT STATES HE IS FEELING MUCH BETTER. WILL CONTINUE TO MONITOR.
--- NOTE | 2018-11-12 00:33 | NUR ---
PT RESTING IN BED WITH EYES CLOSED. BREATHING UNLABORED. NO DISTRESS NOTED AT THIS TIME. WILL CONTINUE TO MONITOR.
--- NOTE | 2018-11-12 05:12 | NUR ---
PT SLEPT IN INTERVALS THROUGHOUT THE NIGHT. DENEIS CHEST PAIN OR SHORTNESS OF BREATH AT THIS TIME. TOLERATING ANTIBIOTIC THERAPY. THERE ARE NO USE OF ACCESSORY MUSCLES OR LABORED BREATHING AT THIS TIME. NO SIGNIFICANT CHANGES NOTED. SAFETY MEASURES ARE IN PLACE. CALL LIGHT IS WITHIN REACH. WILL ENDORSE TO DAY SHIFT RN.
[2018-11-12 06:00] VITALS: BP 89/50
[2018-11-12 06:50] LABS: ALBUMIN 1.8 g/dL (3.4-5.0); CALCIUM 7.4 mg/dL (8.5-10.1); CARBON DIOXIDE 16.2 mmol/L (21-32); CHLORIDE SERUM 114 mmol/L (98-107); CREATININE SERUM 0.4 mg/dL (0.7-1.3); GFR1 > 60 mL/min; GLUCOSE SERUM 59 mg/dL (74-106); MAGNESIUM 1.7 mg/dL (1.8-2.4); PHOSPHOROUS 3.4 mg/dL (2.5-4.9); SODIUM SERUM 146 mmol/L (136-145)
[2018-11-12 07:32] VITALS: BP 90/57
[2018-11-12 07:33] LABS: PLATELET COUNT 54 x10^3mcL (130-400); RED CELL DISTRIBUTION WIDTH 18.4 % (11.5-14.5)
--- NOTE | 2018-11-12 08:00 | NUR ---
REVERSE ISOLATION FOR WBC 1.9. LETHARGIC AND ORIENTED. DENIES ANY PAIN. NS 100 CC HOUR TO RT FA. SL TO RT FA ALSO PATENT. POOR APPETITE. APPEARS VERY WEAK AND THIN. MOTHER AT BEDSIDE. CALL LIGHT WITHIN REACH.
--- NOTE | 2018-11-12 10:54 | NUR ---
NGT TO RT NARE INSERTED BY DR. PERRY. KUB ORDERED. TOLERATED WELL. MOTHER AT BEDSIDE.
[2018-11-12 12:55] VITALS: BP 85/55
[2018-11-12 13:06] LABS: SEGMENTED NEUTROPHILS 39 % (37-75)
[2018-11-12 13:07] LABS: BASOPHIL 0 % (0-2); MONOCYTE 4 % (0-7)
[2018-11-12 15:26] LABS: rbc morphology (normal/abnorm) NORMAL (NORMAL)
[2018-11-12 15:35] LABS: BAND NEUTROPHIL 0 % (0-10)
--- NOTE | 2018-11-12 17:50 | NUR ---
PATIENT SAT UP IN BED WITH FAMILY MEMBER HELP, NO COMPLAIN. OSCAL AND FERROUS SULFATE PO ADMINISTERED WITH WATER PATIENT TOLERATED WELL, NGT INTACT NOTED. NEW BAG IVF REPLACE AT 100ML/HR ORDERED. NEEDS MET. CONT TO MONITOR.
[2018-11-12 17:53] VITALS: BP 92/53
[2018-11-12 19:25] VITALS: BP 94/53
--- NOTE | 2018-11-12 20:08 | NUR ---
REMAINS VERY WEAK. POOR APPETITE. VERY THIN. STARTED ON GT FEED VITAL 1.2 PROTEIN TODAY APPROX 1830. NGT TO RT NARE. CONTINUES ON 02 4L NC. REVERSE ISOLATION FOR WBC'S 1.9. SS: TO SET UP HOSPICE EVAL. CALL LIGHT WITHIN REACH.NO C/O PAIN THIS SHIFT. MOTHER STAYED WITH PT MOST OF THE SHIFT.
--- NOTE | 2018-11-12 20:10 | NUR ---
RECEIVED PT, AAO X4, BREATHING EVEN AND UNLABORED, NO COUGHING NO CONGESTION, ON 4L O2, TOLERATING WELL, O2 SAT AT 100%. NGT TO RIGHT NARES, CONTINUES FEETING VITAL 1.2 AT 10ML/HR WITH THE GOAL OF 30 ML/HR TOLERATING WELL NO RESIDUAL NOTED, HOB ELEVATED. DENIES CP, BP 94/53, HR 88 MAP62 WILL INFORM DOCTOR. IV TO RFA X2, PATENT AND INTACT. PITTING EDEMA +3 NOTED TO BLE, REPOSITION AT THIS TIME, REVERSE ISOLATION OBSERVED. WILL CONTINUE TO MONITOR.
[2018-11-13] VITALS (8 sets, daily range): BP systolic 89–98; BP diastolic 51–57
--- NOTE | 2018-11-13 00:02 | NUR ---
PT CALLED VERBALIZING HE WANTS TO TALK TO A DOCTOR AND WANTED DOBHOFF INSERTED TO R NARES TODAY PULLED OUT.EXPLAINED IMPORTANCE BUT STARTED CRYING AND INSIST ON PULLING OUT LINE TONIGHT.ALLOWS TO CALM DOWN.CALLED DR. GARZA AND MADE AWARE.PT NEEDS TO KEEP LINE FOR HIS NUTRITION.SPOKE WITH PT AGAIN AND EXPLAINED IMPORTANCE AND RISKS OF PULLING DOBHOFF TONIGHT.AGREEABLE TO KEEP LINE TONIGHT AND WILL DISCUSS WITH MD IN AM.OFFERED ANTI-ANXIETY MEDS BUT REFUSED.
--- NOTE | 2018-11-13 00:29 | NUR ---
DR. GARZA MADE AWARE OF K LEVEL 3.0.NO NEW ORDER AT THIS TIME.WILL WAIT FOR AM LAB RESULT.
--- NOTE | 2018-11-13 04:53 | NUR ---
PT SLEPT AT INTERVALS, BRETHING EVEN AND UNLABORED. TOLERATED FEEDING WELL, HOB ELEVATED. PT DECIDED TO KEEP NGT FOR NOW UNTILL SEEN BY DR. RAYMUNDO MORALES REACTION FROM ABX. ALBUMIN IVPG GIVEN, AND TOLERATED WELL. BM X3 TO WATERY BLACKISH STOOL, GOOD PERICARE RENDER. REMAINS IN REVERSE ISO, PROTOCAL OBSERVED, ALL NEEDS MET, WILL CONTINUE TO MONITOR.
--- NOTE | 2018-11-13 05:54 | NUR ---
NGT FEEDING INCRESED TO VITAL 1.2 20ML/HR. WILL ENDORSE TO AM NURSE.
[2018-11-13 06:27] LABS: CALCIUM 7.7 mg/dL (8.5-10.1); CARBON DIOXIDE 22.3 mmol/L (21-32); CHLORIDE SERUM 114 mmol/L (98-107); CREATININE SERUM 0.5 mg/dL (0.7-1.3); GFR1 > 60 mL/min; GLUCOSE SERUM 89 mg/dL (74-106); SODIUM SERUM 145 mmol/L (136-145)
--- NOTE | 2018-11-13 07:15 | NUR ---
ENDORSED CARE TO AM NURSE.
[2018-11-13 07:34] LABS: POTASSIUM SERUM 2.4 mmol/L (3.5-5.1)
--- NOTE | 2018-11-13 08:00 | NUR ---
FATIGUED AND ORIENTED. ON 02 2L NC. NO RESP DISTRESS. DENIES ANY PAIN. NS INFUSING 40 CC HOUR. NGT VITAL 1.2 20 CC HOUR NO RESIDUAL. C/O WATERY STOOLS. POOR APPETITE. REMAINS VERY WEAK. TELE # 13 NSR. HAS MULTIPLE IV MEDS ORDERED. CALL LIGHT WITHIN REACH. REVERSE ISOLATION FOR WBC 1.6.
[2018-11-13 08:37] LABS: PLATELET COUNT 36 x10^3mcL (130-400)
--- NOTE | 2018-11-13 10:21 | NUR ---
RESIDENT INFORMED OF WBC 1.6 AND PLT 36. ALSO INFORMED RESIDENT PT DOES NOT WANT NGT ANY MORE AND WANTS IT REMOVED. EXPLAINED TO PT HE IS UNABLE TO CONSUME ENOUGH NOURISHMENT ORALLY TO KEEP HIMSELF ALIVE. RESIDENT WAS GOING TO SPEAK TO PT DURING ROUNDS. DR. Christine PERRY WS NOTIFIED AND HE SAID IT WAS UP TO THE PT. IF HE WANTS IT OUT TAKE IT OUT.
--- NOTE | 2018-11-13 12:21 | NUR ---
SPOKE WITH RESIDENT ABOUT PTS WATERY STOOLS X 6 TODAY. WILL WAIT TO SEE IF IT SUBSIDES ON ITS OWN SOON. WILL MONITOR.
[2018-11-13 12:49] LABS: BAND NEUTROPHIL 13 % (0-10); BASOPHIL 0 % (0-2); MONOCYTE 11 % (0-7); SEGMENTED NEUTROPHILS 45 % (37-75)
[2018-11-13 12:50] LABS: rbc morphology (normal/abnorm) ABNORMAL (NORMAL)
[2018-11-13 12:51] LABS: PLATELET MORPHOLOGY PLATELETS DECREASED; ovalocyte/elliptocyte 1+; tear drop cell (dacryocyte) 1+
--- NOTE | 2018-11-13 15:31 | NUR ---
FIRST UNIT [PLATELETS STARTED.
--- NOTE | 2018-11-13 18:06 | NUR ---
FIRST UNIT PLATELETS INFUSED. TOLERATED WELL.
--- NOTE | 2018-11-13 18:28 | NUR ---
2 UND PLATELETS STARTED. PT SAYS HE DOESNT REMEMBER WHO HE IS OR WHERE HE IS. HE WANTS HIS MOMMY ALTHOUGH HE DENIES REMEMBERING HER. HE DOES KNOW HIS NAME.
--- NOTE | 2018-11-13 19:30 | NUR ---
RECEIVED PT LAYING IN BED, NO ACUTE DISTRESS OBSERVED, MOTHER AT BEDSIDE. AA/OX4, ABLE TO MAKE NEEDS KNOWN, SPEECH CLEAR AND APPROPRIATE. NGT TO R NARE IN PLACE AND SECURED, CONNECTED TO TF ORDERED, VITAL AF 1.2 AT 30 ML/HR WITH 100 ML FWF Q4H. 30 ML YELLOW RESIDUALS NOTED. TF ADVANCED TO 40 ML/HR, PT TOLERATING TF WELL. ORAL THRUSH NOTED, PT C/O INTERMITTENT PAIN AND DISCOMFORT TO MOUTH. NST TO TELE #13, HR 88, DENIES CP OR PRESSURE. WEAK PEDAL PULSES, +3 EDEMA TO BLE. BREATHING ON 4L NC, EVEN AND UNLABORED, DENIES SOB OR DYSPNEA, LUNGS CTA, O2 SAT 99% ABD SOFT AND FLAT WITH ACTIVE BOWEL SOUNDS, DENIES N/V, PT C/O LOOSE BLACK STOOLS, PT ON FERROUS SULFATE PO. FREELY VOIDS URINE WITH PERIODS OF INCONTINENT, URINAL AT BEDSIDE AND WITHIN REACH, WILL PROVIDE PERICARE NEEDED. GENERALIZED WEAKNESS, FALL PRECAUTIONS IN PLACE, ABLE TO REPOSITION SELF IN BED. SCAB TO R SIDE OF FOREHEAD, VJ, S/P FALL FROM PREVIOUS ADMIT. IV TO RFA AND JESUSITA IN PLACE, DRY, PATENT, INTACT, NO PAIN, REDNESS OR SWELLING NOTED. IV TO RFA INFUSING 2ND UNIT OF PLATELETS ORDERED. IV TO JESUSITA INFUSING IVF WELL. COMFORT AND SAFETY MEASURES IN PLACE. BED IN LOWEST POSITION WITH SIDE RAILS UPX2. CALL LIGHT WITHIN REACH. WILL CONTINUE TO MONITOR
--- NOTE | 2018-11-13 19:40 | NUR ---
EDUCATED PT FOR ORDERED R INGUINAL BIPOSY SCHEDULED FOR TOMORROW. PT AGREED AND VERBALIZED UNDERSTANDING, CONSENT SIGNED AND WITNESSED BY THIS RN. CONSENT PLACED IN CHART, CHECKLIST INITIATED
--- NOTE | 2018-11-13 20:21 | NUR ---
2ND UNIT PLATELETS INFUSING. REMAINS ON 02 2L NC. VITAL 1.2 VIA NGT RT NARE. PT WAS SAYING HE WAS HAVING AMNESIA BUT WHEN NO ONE WAS INTHE ROOM HE CALLED HIS MOTHER, ANOTHER PERSON ALSO AND GAVE HIM HIS ROOM NUMBER. HE TOLD THE PERSON ON THE PHONE HE WAS PARALIZED WHILE HE LAY IN BED AND WAS MOVING HIS LEGS ALL OVER. CONTINUES ON MULTIPLE ANTIBIOTICS. MOTHER AT BEDSIDE. CALL LIGHT WITH IN REACH.
--- NOTE | 2018-11-13 21:15 | NUR ---
2ND UNIT OF PLATELETS INFUSION DONE. VITAL SIGNS STABLE AND INPUTTED. NO ACUTE DISTRESS OBSERVED. NO TRANSFUSION REACTION NOTED. IV TO RFA S/L AT THIS TIME. CALL LIGHT WITHIN REACH. MOTHER AT BEDSIDE. WILL CONTINUE TO MONITOR
--- NOTE | 2018-11-13 22:28 | NUR ---
SPOKE WITH DR. GARZA TO CLARIFY WHETHER PT TO BE NPO AT MIDNIGHT FOR SCHEDULED BIOPSY IN AM. PER DR. GARZA, TF TO BE HELD AT MIDNIGHT. WILL ANTICIPATE NEW ORDERS
--- NOTE | 2018-11-14 01:12 | NUR ---
PT FOUND WITH NGT OUT AND ON BED. PT STATES IT WAS ACCIDENTALLY REMOVED. DR. GARZA MADE AWARE AND STATED OK TO KEEP NGT OUT FOR NOW SINCE PT IS NPO AT THIS TIME.
--- NOTE | 2018-11-14 01:13 | NUR ---
DR. GARZA ALSO MADE AWARE THAT 2 UNIT PLATELETS FROM 11/10/18 WERE NOT GIVEN. BLOOD BANK SHOWS 4 UNITS PLATELETS ORDERED WITH ONLY 2 UNITS GIVEN ORDERED 11/13/18. PER DR. GARZA, LEAVE IS PENDING CBC DRAW TODAY.
[2018-11-14 06:04] VITALS: BP 87/55
--- NOTE | 2018-11-14 06:17 | NUR ---
PT NPO SINCE MIDNIGHT ORDERED FOR SCHEDULED RIGHT INGUINAL BIOPSY. CHG WIPES DONE. CHECKLIST DONE. INFORMED CONSENT SIGNED IN CHART. NO ACUTE DISTRESS OBSERVED AT THIS TIME, PT LAYING IN BED, BREATHING EVEN AND UNLABORED, AROUSABLE TO VERBAL STIMULI. COMFORT AND SAFETY MEASURES MAINTAINED. ALL NEEDS ASSESSED AND ATTENDED TO. MOTHER AT BEDSIDE. CALL LIGHT WITHIN REACH. WILL CONTINUE TO MONITOR AND ENDORSE CARE TO DAY SHIFT NURSE
[2018-11-14 06:53] LABS: CALCIUM 8.1 mg/dL (8.5-10.1); CARBON DIOXIDE 19.8 mmol/L (21-32); CHLORIDE SERUM 117 mmol/L (98-107); CREATININE SERUM 0.3 mg/dL (0.7-1.3); GFR1 > 60 mL/min; GLUCOSE SERUM 77 mg/dL (74-106); PHOSPHOROUS 2.8 mg/dL (2.5-4.9); POTASSIUM SERUM 3.7 mmol/L (3.5-5.1); SODIUM SERUM 147 mmol/L (136-145)
--- NOTE | 2018-11-14 07:20 | NUR ---
RECIEVED PT RESTING IN BED WITH FAMILY AT BEDSIDE. DENIES ANY PAIN, DISTRESS, OR SOB AT THIS TIME. A/O X4 NO RICHARDSON OR DIZZINESS REPORTED. TELE #13 CONNECTED TO PT. LUNGS CTA PT ON RA AT 96% O2. SALINE LOCK AT RFA #20 AND JESUSITA #22, BOTH INTACT AND PATENT WITH NO REDNESS OR INFLAMMATION, NS RUNNING AT 40ML/HR. SAFETY PRECAUTIONS IN PLACE. CALL LIGHT WITHIN REACH. WILL CONTINUE TO MONITOR.
--- NOTE | 2018-11-14 08:27 | NUR ---
SPOKE WITH PATRICIA FROM LAB, RECIEVED CRITICAL VALUES: WBC-1.4 AND PLATELETS- 40. DR PASTOR NOTIFIED AND SHE STATED SHE WILL ENTER NEW ORDERS FOR PLATELETS. WILL FOLLOW THROUGH WITH ORDERS WHEN RECIEVED.CHARGE NOTIFIED ALSO.
[2018-11-14 09:32] LABS: PLATELET COUNT 40 x10^3mcL (130-400)
--- NOTE | 2018-11-14 09:40 | NUR ---
PT BP AT 91/57, HR 85, MAP 64. DR PASTOR NOTIFIED AND SHE STATED THAT "IT WAS NORMAL FOR HIM". WILL CONTINUE TO MONITOR.
[2018-11-14 09:45] LABS: SEGMENTED NEUTROPHILS 76 % (37-75)
[2018-11-14 09:46] LABS: BAND NEUTROPHIL 4 % (0-10); BASOPHIL 0 % (0-2); MONOCYTE 8 % (0-7); rbc morphology (normal/abnorm) ABNORMAL (NORMAL)
[2018-11-14 09:49] VITALS: BP 91/57
--- NOTE | 2018-11-14 13:00 | NUR ---
PT STABLE AT THIS TIME. NO DISTRESS NOTED. MOTHER AT BEDSIDE. SAFETY PRECAUTIONS IN PLACE. CALL LIGHT EITHIN REACH. WILL MONITOR.
[2018-11-14 13:50] VITALS: BP 96/62
--- NOTE | 2018-11-14 14:04 | NUR ---
1. Recommend Neutropenic regular diet.
--- NOTE | 2018-11-14 14:04 | NUR ---
Follow-up Nutrition Assessment: 219T/B MICHELLE SHAW IA HR Dx: Intractable vomiting, End stage AIDS PMHx: HIV (September 2017), AIDS, Asthma Labs: (11/14) NA 147H, CREAT 0.3L, CA 8.1, WNC 1.4L Meds: Albuminar, difulcan, ferrous sulfate, flagyl, megace, folic acid, morphine, zofran Diet: Regular (pt had TF Vital AF 1.2 @ 30ml/hr but extubated now) PO Intake: (11/13) 0% Weights: (11/10) 43 kg Skin: intact Juan Luis: 14 I/Os: 3490/607 Edema: +3 pitting edema to BLE GI: black loose stool Last BM: 11/13 RDN Visit (11/14): pt looked severely emaciated and underweight. Pt's mother was at bedside. Pt did not eat any breakfast this morning. Pt has not been drinking ensure. Pt was receiving Vital AF @60ML/hr from (11/12-11/13) but it was pulled out. Pt is not agreeable to tube feedings per bed huddle discussion. Neutropenic diet education was given to pt's mother. RN has also been informed. Was not able to page Dr. Victoria d/t technical issues. PageGate Dr. Victoria my recommendations. Estimated Nutritional Needs Based on body weight 43.1 kg Energy: 6699-2161 kcal/d (35-40 kcal/kg- weight gain) Protein: 51.7- 64.6 g/d (1.2-1.5 g/kg)- d/t loss of LBM Fluid: 8133-0565 ml/d (1 ml/kcal) or per doctor Nutrition Diagnosis 1.Malnutrition related to AIDS as evidenced by unintentional weight loss of 6# in one week, loss of LBM, BMI 15.4 kg/m2. (ongoing-worsening) Intervention 1. Recommend Neutropenic regular diet. Monitor/Evaluate Goal: Have pt meet at least 75% of estimated needs Monitor: PO intake, Labs, GI function F/U in 2-3 days as high risk 11/16-
[2018-11-14 16:43] VITALS: BP 96/53
--- NOTE | 2018-11-14 19:45 | NUR ---
RECEIVED PT LAYING IN BED, NO ACUTE DISTRESS OBSERVED, MOTHER AT BEDSIDE. AA/OX4, ABLE TO MAKE NEEDS KNOWN, SPEECH CLEAR AND APPROPRIATE. ORAL THRUSH NOTED, PT ADMITS TO DISCOMFORT AT TIMES WHEN CHEWING. MED-SURG, NO TELE. DENIES CP OR PRESSURE. WEAK PEDAL PULSES, +3 EDEMA TO BLE. BREATHING ON 3L NC, EVEN AND UNLABORED, DENIES SOB OR DYSPNEA, LUNGS CTA, O2 SAT 96% ABD SOFT AND FLAT WITH ACTIVE BOWEL SOUNDS, DENIES N/V, PT C/O LOOSE BLACK STOOLS, PT ON FERROUS SULFATE PO. POOR APPETITE, PT ON MEGACE PO. PT ADMITS TO EATING 90% OF DINNER, REGULAR DIET, TOLERATING WELL. FREELY VOIDS URINE WITH PERIODS OF INCONTINENCE, URINAL AT BEDSIDE AND WITHIN REACH, WILL PROVIDE PERICARE NEEDED. GENERALIZED WEAKNESS, FALL PRECAUTIONS IN PLACE, ABLE TO TURN AND REPOSITION SELF IN BED. S/P BIOPSY EARLIER TODAY TO RIGHT INGUINAL LYMPHNODE, DRESSING IN PLACE, CDI, NO S&S BLEEDING NOTED. IV TO RFA AND JESUSITA IN PLACE, DRY, PATENT, INTACT, NO PAIN, REDNESS OR SWELLING NOTED. IV TO RFA INFUSING 2ND UNIT OF PLATELETS ORDERED. IV TO JESUSITA INFUSING IVF WELL. COMFORT AND SAFETY MEASURES IN PLACE. BED IN LOWEST POSITION WITH SIDE RAILS UPX2. CALL LIGHT WITHIN REACH. WILL CONTINUE TO MONITOR
--- NOTE | 2018-11-14 19:45 | NUR ---
RECEIVED PT LAYING IN BED, NO ACUTE DISTRESS OBSERVED, MOTHER AT BEDSIDE. AA/OX4, ABLE TO MAKE NEEDS KNOWN, SPEECH CLEAR AND APPROPRIATE. ORAL THRUSH NOTED, PT ADMITS TO DISCOMFORT AT TIMES WHEN CHEWING. MED-SURG, NO TELE. DENIES CP OR PRESSURE. WEAK PEDAL PULSES, +3 EDEMA TO BLE. BREATHING ON 3L NC, EVEN AND UNLABORED, DENIES SOB OR DYSPNEA, LUNGS CTA, O2 SAT 96% ABD SOFT AND FLAT WITH ACTIVE BOWEL SOUNDS, DENIES N/V, PT C/O LOOSE BLACK STOOLS, PT ON FERROUS SULFATE PO. POOR APPETITE, PT ON MEGACE PO. PT ADMITS TO EATING 90% OF DINNER, REGULAR DIET, TOLERATING WELL. FREELY VOIDS URINE WITH PERIODS OF INCONTINENCE, URINAL AT BEDSIDE AND WITHIN REACH, WILL PROVIDE PERICARE NEEDED. GENERALIZED WEAKNESS, FALL PRECAUTIONS IN PLACE, ABLE TO TURN AND REPOSITION SELF IN BED. SCAB TO R SIDE OF FOREHEAD, VJ, S/P FALL FROM PREVIOUS ADMIT. IV TO RFA AND JESUSITA IN PLACE, DRY, PATENT, INTACT, NO PAIN, REDNESS OR SWELLING NOTED. IV TO RFA INFUSING 2ND UNIT OF PLATELETS ORDERED. IV TO JESUSITA INFUSING IVF WELL. COMFORT AND SAFETY MEASURES IN PLACE. BED IN LOWEST POSITION WITH SIDE RAILS UPX2. CALL LIGHT WITHIN REACH. WILL CONTINUE TO MONITOR
--- NOTE | 2018-11-14 20:18 | NUR ---
SPOKE WITH DR. GARZA IN REGARDS TO SECOND UNIT OF PLATELET. 250 ML INFUSED AND FINISHED AT 1900 BUT, IN BAG REMAINS EXCESS PLATELET. BAG LABEL STATES 688 ML OF PLATELET. PER DR. GARZA, OK TO INFUSE ALL THE REMAINING PLATELET IN BAG.
--- NOTE | 2018-11-14 20:48 | NUR ---
PT STABLE AT THIS TIME. VS WNL. NO PAIN, DISTRESS, OR SOB NOTED. TOLERATED ALL CARES WELL. IV TO RFA AND JESUSITA BOTH INTACT AND PATENT WITH NO REDNESS OR INFLAMMATIONS NOTED. 2 UNITS TOTAL OF PLATELETS GIVEN ON MY SHIFT AND TOLERATED WELL WITH NO ADVERSE REACTIONS NOTED. NO CP OR PRESSURE NOTED. SAFETY PRECAUTIONS IN PLACE. CALL LIGHT WITHIN REACH. ENDORSED CARE TO NIGHT NURSE.
[2018-11-14 21:00] VITALS: BP 95/60
--- NOTE | 2018-11-14 21:10 | NUR ---
650 ML PLATELET INFUSION DONE. VITAL SIGNS STABLE. NO ACUTE DISTRESS OBSERVED. PT DENIES ANY DISCOMFORT AT THIS TIME. CALL LIGHT WITHIN REACH. MOTHER AT BEDSIDE. WILL CONTINUE TO MONITOR
--- NOTE | 2018-11-14 23:50 | NUR ---
PT HAD BM, LOOSE AND GREEN. PERICARE PROVIDED. NO ACUTE DISTRESS OBSERVED. CALL LIGHT WITHIN REACH. WILL CONTINUE TO MONITOR
[2018-11-15 05:19] VITALS: BP 84/53
--- NOTE | 2018-11-15 05:52 | NUR ---
NO SIGNIFICANT CHANGES TO REPORT, PT COMPLIED WITH NURSING CARE THROUGHOUT THE SHIFT WITH NO ACUTE EVENTS OVERNIGHT. NO ACUTE DISTRESS OBSERVED AT THIS TIME. PT LAYING IN BED, BREATHING EVEN AND UNLABORED, EASILY AROUSABLE TO VERBAL STIMULI. COMFORT AND SAFETY MEASURES MAINTAINED. ALL NEEDS ASSESSED AND ATTENDED TO. CALL LIGHT WITHIN REACH. WILL CONTINUE TO MONITOR AND ENDORSE CARE TO DAY SHIFT NURSE
--- NOTE | 2018-11-15 07:40 | NUR ---
RECEIVED PT. IN BED A/A/O X3. PT. APPEARS FORGETFUL. MILD SOB NOTED WITH EXERTION. NO N/V NOTED. NS RUNNING AT 40 CC/HR VIA IV SITE AT R FA. IV SITE #2 NOTED TO R UPPER ARM. PT. IS ON NEUTROPENIC PRECAUTION. SCD TO BLE MAINTAINED. BED IN LOW POS., CALL LIGHT WITHIN REACH. SIDE RAILS UP X3.
[2018-11-15 08:00] LABS: CALCIUM 8.2 mg/dL (8.5-10.1); CARBON DIOXIDE 21.2 mmol/L (21-32); CHLORIDE SERUM 117 mmol/L (98-107); CREATININE SERUM 0.3 mg/dL (0.7-1.3); GFR1 > 60 mL/min; MAGNESIUM 1.7 mg/dL (1.8-2.4); PHOSPHOROUS 3.8 mg/dL (2.5-4.9); POTASSIUM SERUM 3.7 mmol/L (3.5-5.1); SODIUM SERUM 149 mmol/L (136-145)
[2018-11-15 08:17] VITALS: BP 92/59
[2018-11-15 09:18] LABS: GLUCOSE SERUM 60 mg/dL (74-106)
--- NOTE | 2018-11-15 09:22 | NUR ---
REPORTED GLUCOSE LEVEL (60) TO DR. PAREDES FROM THIS AM BMP BLOOD DRAW . NO FURTHER ORDER RECEIVED AT THIS TIME.
[2018-11-15 10:58] LABS: PLATELET COUNT 55 x10^3mcL (130-400); RED CELL DISTRIBUTION WIDTH 18.3 % (11.5-14.5)
--- NOTE | 2018-11-15 11:10 | NUR ---
REPORTED WBC (1.3), H/H (6.6/19), AND PLATELET LEVEL (55) TO DR. PAREDES. DR. PAREDES STATED " I PROBABLY WILL ORDER 1 MORE UNIT OF PRBC FOR THE PATIENT."
[2018-11-15 14:20] LABS: SEGMENTED NEUTROPHILS 76 % (37-75)
[2018-11-15 14:21] LABS: ATYPICAL LYMPH 0 %; BAND NEUTROPHIL 2 % (0-10); BASOPHIL 0 % (0-2); MONOCYTE 14 % (0-7); rbc morphology (normal/abnorm) ABNORMAL (NORMAL)
[2018-11-15 17:00] VITALS: BP 92/59
--- NOTE | 2018-11-15 19:00 | NUR ---
REMAINS IN STABLE CONDITION AT THIS TIME. PT. IS TO HAVE 1 UNIT OF PRBC TRANSFUSION TONIGHT.
--- NOTE | 2018-11-15 19:46 | NUR ---
RECEIVED PATIENT IN BED AWAKE,ALERT AND ORIENTED WITH NO SIGN OF ACUTE RESPIRATORY DISTRESS. BREATHING EASYA ND NONLABOR ON O2 AT 3L VIA NC. EDEMA +3 NOTED TO BLE WITH SCD TO BLE IN PLACE. IV TO RFA INTACT AND INFUSING WELL. WILL CONTINUE TO MONITOR. FAMILY MEMBERS AT BEDSIDE.
[2018-11-15 21:04] VITALS: BP 93/56
--- NOTE | 2018-11-15 23:08 | NUR ---
STARTED WITH 1 UNIT PRBC AFTER TYLENOL, BENADRYL PO GIVEN. NO SIGN OF ADVERSE REACTION NOTED. VITAL SIGNS TAKEN BP-92/61, HR-94, R=20, T-98.2 SATTING AT 98% AT 3L VIA NC. WILL CONTINUE TO MONITOR. MOTHER AT BEDSIDE.
--- NOTE | 2018-11-16 02:10 | NUR ---
BLOOD TRANSFUSION DONE WITH NO ADVERSE REACTION NOTED. WILL CONTINUE TO MONITOR. MOTHER AT BEDSIDE.
--- NOTE | 2018-11-16 02:36 | NUR ---
LASIX 20MG PO NOT GIVEN, BLOOD PRESSURE LOW- 88/58. WILL CONTINUE TO MONITOR.
--- NOTE | 2018-11-16 04:10 | NUR ---
RECEIVED REPORT FROM JESSICA JOY. PT RESTING WITH EYES CLOSED. NO SOB ON O2 3L VIA NC. NO FACIAL GRIMACING. NO DISTRESS NOTED. SAFETY MEASURES IN PLACE. CALL LIGHT WITHIN REACH. MOTHER AT BEDSIDE.
[2018-11-16 05:29] VITALS: BP 85/52
[2018-11-16 06:36] LABS: RED CELL DISTRIBUTION WIDTH 17.2 % (11.5-14.5)
[2018-11-16 06:38] LABS: PLATELET COUNT 31 x10^3mcL (130-400)
--- NOTE | 2018-11-16 06:47 | NUR ---
PT RESTING WITH EYES CLOSED. NO SOB ON O2 3L VIA NC. BREATHING EVEN AND UNLABORED. NO FACIAL GRIMACING. NO DISTRESS NOTED. SAFETY MEASURES MAINTAINED. CALL LIGHT WITHIN REACH. WILL ENDORSE CONTINUITY OF CARE TO ONCOMING RN.
[2018-11-16 06:55] LABS: ALBUMIN 2.5 g/dL (3.4-5.0); ALKALINE PHOSPHATASE 72 U/L (46-116); ALT/SGPT 18 U/L (16-63); AST/SGOT 12 U/L (15-37); BILIRUBIN TOTAL 1.5 mg/dL (0.20-1.00); CALCIUM 7.8 mg/dL (8.5-10.1); CARBON DIOXIDE 25.3 mmol/L (21-32); CHLORIDE SERUM 118 mmol/L (98-107); CREATININE SERUM 0.3 mg/dL (0.7-1.3); GFR1 > 60 mL/min; GLUCOSE SERUM 83 mg/dL (74-106); MAGNESIUM 1.8 mg/dL (1.8-2.4); PHOSPHOROUS 2.9 mg/dL (2.5-4.9); POTASSIUM SERUM 3.8 mmol/L (3.5-5.1); SODIUM SERUM 152 mmol/L (136-145); TOTAL PROTEIN, SERUM 4.5 g/dL (6.4-8.2)
--- NOTE | 2018-11-16 08:00 | NUR ---
RECEIVED PATIENT WHO IS WITH GENERAL WEAKNESS AND VERY FRAIL IN APPEARANCE AND GAUNT. GINETTE GUNDERSONS BEEN INCONTINUEN OF URINE AND BOWEL. HE HAD BEEN HAVING BOUTS OF DIARRHEA. BUT NONE SO FAR THIS SHEIFT. ONEIL AHS RALES THAT ARE COARSE MORENA TE BILATERAL LUNGS AND MORE SO TO THE LEFT THAN THE RIGHT. PATIENT AH EDEMA TO THE LOWER [id number] OF 3 PLUS AND PITTING.HE HAS PAIN WITH POSITIONING AND HAS BEEN ABLE TO MOVE HIMSELF IN BED. HE TOLERATE THE DIET OFFERED AND EATS [id number] AT THIS TIME CONTINUED ON MEGACE AND IV FLUIDS ORDERED. PATIENT HAS NOTED LAB OF WBC AT 1.3, THE H AND H OF 7.6?22, PLT 31. AND THE CREATININET AT 0.3, AND THE CA AT 7.8. KINSEY HAS BEEN ADVISED TO HAVE A HOSPICE EVAL DUE TO HIS ADVANCED END STAGE AIDS. PATIENT HAS HISTORY OF ORAL CANDIDIA AND ASTHMA AND FAILURE TO THIVE. PATIENT HAS A SCAB TO THE FOREHEAD AND HAS OPTIFOAM TO THE COCCYX TO HELP PREVENT BREAKDOWN DUE TO THE PATIENT IS VERY THIN AND [facility] PROMINANCES ARE A FACTOR FOR POTENTIAL BREAKDOWN. PATIENT HAS BEEN NOTED TO HAVE METASTATIC DISEASE AFFECTING HIS LIVER, LUNG, SBO, AND HIS LYMPH NODES OF THE RIGHT GROIN. HE IS IN REVERSE ISOLATION DUE TO THE LOWER PLATELET AND WBC COUNTS. WILL CONTINUE TO MONITOR INDICATED.
[2018-11-16 09:21] VITALS: BP 104/67
--- NOTE | 2018-11-16 10:35 | NUR ---
ORDER FOR PLATLETS NOTED TO BE GIVEN. AWAITING BLOOD BANK TO GET READY. PATIENT WAS SEEN BY THE RESIDENTA ADN PLAN OF CARE DISCUSSED.
[2018-11-16 11:02] LABS: BAND NEUTROPHIL 2 % (0-10); BASOPHIL 0 % (0-2); METAMYELOCTE 1 % (0-2); MONOCYTE 6 % (0-7); SEGMENTED NEUTROPHILS 70 % (37-75)
[2018-11-16 11:03] LABS: PLATELET MORPHOLOGY PLATELETS DECREASED; rbc morphology (normal/abnorm) ABNORMAL (NORMAL)
[2018-11-16 11:05] LABS: ovalocyte/elliptocyte 1+
--- NOTE | 2018-11-16 12:59 | NUR ---
PATIENT HAS NOT HAD PLATLETS READY YET AND WILL KEEP CHECKING THE STATUS AT THIS TIME. PATIENT DENIES PAIN BUT OVERALL GENERAL WEAKNESS AND PATIENT NEEDS ASSIST WITH TOILETING AND PULLING UP IN BED. ENCOURAGE DIET INTAKE INDICATED.
[2018-11-16 13:44] VITALS: BP 104/67
--- NOTE | 2018-11-16 14:40 | NUR ---
PATIENT DOWN FOR CT AND GAVE MORPHINE AT THIS TIME.
[2018-11-16 14:58] LABS: RED CELL DISTRIBUTION WIDTH 16.7 % (11.5-14.5)
[2018-11-16 15:07] LABS: MONOCYTE 6 % (0-7); SEGMENTED NEUTROPHILS 75 % (37-75)
[2018-11-16 15:09] LABS: rbc morphology (normal/abnorm) ABNORMAL (NORMAL)
[2018-11-16 15:10] LABS: PLATELET MORPHOLOGY PLATELETS DECREASED; tear drop cell (dacryocyte) 1+
[2018-11-16 15:14] LABS: PLATELET COUNT 26 x10^3mcL (130-400)
--- NOTE | 2018-11-16 16:19 | NUR ---
GAVE TYLNEOL AND BENADRYL AND PLACED SET UP FOR TRANSFUSION IDNICATED. THE ALBUMIN STOPPED RUNNING AND SPIKED THE BOTTLE WITH A NEEDLE FOR TRANSFUSION TO RUN INDICATED. PATIENT IS CALM AND SLEEPY AND DENIES ANY PAIN AT THIS TIME. ENCOURAEG USE OF BEDPAN RATHER THAN OOB TO THE RESTROOM. PATIENT IS FAR TOO WEAK TO TOLERATE THE TRANSFER AND HAS FALLEN AT HOME PRIOR AND SAFETY IS THE MAIN CONCERN AT THIS TIME. ADVISED THE PATIETN OF THIS HE WANTS TO SHOWER WELL. HE IS SO FRAGILE AND WEAK AND THIS IN THE NURSING JUDGEMENT IS CONTRAINDICATED AT THIS TIME. WILL CONTINUE TO [facility] AND WILL BERTRAM RIZVI IDNICATED.
[2018-11-16 17:01] VITALS: BP 94/57
--- NOTE | 2018-11-16 17:28 | NUR ---
STARTED INFUSION OF PLATELETS INDICATED. PATIENT TOELRATE WELL SO FAR. A LITTLE CONFUSED AT TIMES NOTED. PATIENT HAS A PLATLET BAG TO INSTILL 317 ML OF PLATELETS CATARINO BP IS AT 93/54, 18, 96%, 80, 97.8 ON THE 15 MINUTE SAJAN. GINETTE IS RESTING QUIETLY AT THIS TIME. EXPLAINED THE PROCEDURE FOR INFUSION AND THE INDICATION TO THE PATIENT. HE HAS HAD SEVERAL UNITS OF PLATELETS AND HAS HAD BLOOD INFUSED PRIOR. CONTINUE ON REVERSE ISOLATION AND NOTED THE WBC IS LOW AT 1.6 BUT UP FROM 1.3. WILL CONTINUE TO MONITOR FOR ANY ADVERSE REACTION NOTED.
[2018-11-16 20:50] VITALS: BP 96/59
[2018-11-16 23:12] LABS: PLATELET COUNT 47 x10^3mcL (130-400)
[2018-11-16 23:47] LABS: BAND NEUTROPHIL 8 % (0-10); METAMYELOCTE 3 % (0-2); MONOCYTE 13 % (0-7); SEGMENTED NEUTROPHILS 27 % (37-75)
[2018-11-16 23:49] LABS: PLATELET MORPHOLOGY PLATELETS DECREASED; rbc morphology (normal/abnorm) ABNORMAL (NORMAL)
--- NOTE | 2018-11-17 03:50 | NUR ---
PATIENT CONTINUING TO ASK ABOUT HAVING OUTSIDE FOOD, EDUCATED PT ABOUT RISK OF EATING FOOD NOT UNDER THE NEUTROPENIC PRECAUTIONS, PT VERBALIZES UNDERSTANDING YET CONTINUING TO ASK THE SAME QUESTIONS IN OTHER WAYS. INFORMED PT WE WILL ASK THE DOCTORS ABOUT OUTFOOD SOURCE THAT WILL SATISFY THE NEUTROPENIC PRECAUTIONS. ALL QUESTIONS AND CONCERNS ADDRESSED, CALL LIGHT WIHTIN REACH, BED IN LOWEST POSITION, WILL CONTINUE TO MONITOR.
[2018-11-17 05:17] VITALS: BP 99/55
--- NOTE | 2018-11-17 06:30 | NUR ---
SENT A MESSAGE TO FOOD & NUTRITION ABOUT PT REQUESTING BETTER TASTING MEALS WITHIN THE NEUTROPENIC DIET. PER KITCHEN, THEY WILL TRY TO ACCOMMODATE. UPDATED PT ABOUT THE KITCHEN PROVIDING AN [place] MUFFIN SO HE CAN MAKE A BREAKFAST SANDWICH. PT STATES "I DON'T THINK ITS NECESSARY, THE DISCHARGE PAPERS ARE ALREADY DONE". EDUCATED PT THAT DISCHARGE ORDERS ARE NOT IN AT THIS TIME AND WE SHOULD PLAN FOR HIM STAYING TODAY TO ENSURE HIS NEEDS ARE MEDS. PT APPEARS DIAPPOINTED BUT AGREEABLE WITH CARE AT THIS TIME. WILL CONTINUE TO MONITOR.
[2018-11-17 06:45] LABS: ALKALINE PHOSPHATASE 67 U/L (46-116); ALT/SGPT 9 U/L (16-63); AST/SGOT 10 U/L (15-37); BILIRUBIN TOTAL 1.46 mg/dL (0.20-1.00); CALCIUM 8.7 mg/dL (8.5-10.1); CARBON DIOXIDE 21.6 mmol/L (21-32); CHLORIDE SERUM 115 mmol/L (98-107); CREATININE SERUM 0.4 mg/dL (0.7-1.3); GFR1 > 60 mL/min; GLUCOSE SERUM 89 mg/dL (74-106); MAGNESIUM 1.6 mg/dL (1.8-2.4); PHOSPHOROUS 2.7 mg/dL (2.5-4.9); POTASSIUM SERUM 3.6 mmol/L (3.5-5.1); SODIUM SERUM 148 mmol/L (136-145)
[2018-11-17 06:57] LABS: ALBUMIN 2.5 g/dL (3.4-5.0); TOTAL PROTEIN, SERUM 4.8 g/dL (6.4-8.2)
--- NOTE | 2018-11-17 08:04 | NUR ---
A+OX4, ORAL THRUSH, PT SAD, PT STATES, "I JUST WANT TO GO HOME." MEDSURG, WEAK PEDAL PULSES, +3 EDEMA BLE, LUNG SOUNDS CTA, 3L NC, BOWEL SOUNDS ACTIVE, LOOSE STOOL, PORR APPETITE, VOIDING, INCONTINENT AT TIMES, GENERALIZED WEAKNESS, SCAB TO FOREHEAD VJ, IV IN LFA WITH NS @ 40 ML/HR, SITE WNL.
--- NOTE | 2018-11-17 09:24 | NUR ---
PT RESTING IN BED, EMOTIONAL, REQUESTING TO GO HOME, BUTTER GRADER SIA AWARE AND STATES SHE WILL SPEAK TO PT, PT ENCOURAGED TO EAT, PT REFUSING BREAKFAST, NO RESPRIATORY DISTRESS NOTED, CALL LIGHT WITHIN REACH.
[2018-11-17 09:40] VITALS: BP 107/63
--- NOTE | 2018-11-17 10:29 | NUR ---
SIA CLASSIFICATION AND TREATMENT DIRECTOR AT BEDSIDE TO SPEAK TO PT. PT NOT TO BE DC TODAY DUE TO IV ANTIBIOTICS. PT EMOTIONAL AND VERBALIZED UNDERSTANDING. CALL LIGHT WITHIN REACH.
[2018-11-17 11:08] LABS: RED CELL DISTRIBUTION WIDTH 17.3 % (11.5-14.5)
[2018-11-17 11:14] LABS: PLATELET COUNT 37 x10^3mcL (130-400); SEGMENTED NEUTROPHILS 64 % (37-75)
[2018-11-17 11:15] LABS: ATYPICAL LYMPH 0 %; BAND NEUTROPHIL 4 % (0-10); BASOPHIL 0 % (0-2); BLAST 0 % (0); METAMYELOCTE 0 % (0-2); MONOCYTE 20 % (0-7); MYELOCYTE 0 % (0-2); PLATELET MORPHOLOGY PLATELETS DECREASED; PROMYELOCYTE 0 % (0-0); rbc morphology (normal/abnorm) ABNORMAL (NORMAL)
--- NOTE | 2018-11-17 11:20 | NUR ---
SIA SAUNDERS NOTIFIED OF WBC 0.7 AND HCT 20.
--- NOTE | 2018-11-17 12:26 | NUR ---
PT RESTING IN BED, NO RESPRIATORY DISTRESS NOTED, DENIES PAIN, MOTHER AT BEDSIDE, CALL LIGHT WITHIN REACH.
--- NOTE | 2018-11-17 13:07 | NUR ---
PT RESTING IN BED, NC OFF, COMPLAINING OF DIZZINESS, NC PLACED BACK ON PT @ 3L, PT EDUCATED ON NEED FOR OXYGEN, O2 SAT 95% ON 3L NC. CALL LIGHT WITHIN REACH.
--- NOTE | 2018-11-17 13:22 | NUR ---
Follow-up Nutrition Assessment: 219/B MICHELLE SHAW HR Dx: Intractable vomiting, End stage AIDS PMHx: HIV (September 2017), AIDS, Asthma Labs: (11/17) NA 148H, CREAT 0.4L, WBC 0.6L, ALB 2.5L Meds: Albuminar, difulcan, ferrous sulfate, megace, folic acid, oscal with vit D, zofran Diet: Regular (Neutropenic) PO Intake: (11/16) 25% Weights: (11/10) 43 kg Skin: scab to forehead Juan Luis: 15 I/Os: 3490/607 Edema: +3 pitting edema to BLE GI: loose stool Last BM: 11/17 RDN Visit (11/17): Pt looks extremely emaciated and malnourished. Pt said that he ate some breakfast this morning and drank bottle of ensure. There are no significant changes from a nutrition standpoint at this time since last visit. Estimated Nutritional Needs Based on body weight 43.1 kg Energy: 9376-3513 kcal/d (35-40 kcal/kg- weight gain) Protein: 51.7- 64.6 g/d (1.2-1.5 g/kg)- d/t loss of LBM Fluid: 8862-1376 ml/d (1 ml/kcal) or per doctor Nutrition Diagnosis 1.Malnutrition related to AIDS as evidenced by unintentional weight loss of 6# in one week, loss of LBM, BMI 15.4 kg/m2. (ongoing-worsening) Intervention 1. Recommend continuing Neutropenic regular diet with Ensure Enlive BID. Monitor/Evaluate Goal: Have pt meet at least 75% of estimated needs Monitor: PO intake, Labs, GI function F/U in 2-3 days as high risk 11/19-
--- NOTE | 2018-11-17 13:23 | NUR ---
1. Recommend continuing Neutropenic regular diet with Ensure Enlive BID.
--- NOTE | 2018-11-17 14:49 | NUR ---
PT RESTING IN BED, NO RESPIRATORY DISTRESS NOTED, DENIES PAIN, MOTHER AT BEDSIDE, CALL LIGHT WITHIN REACH.
--- NOTE | 2018-11-17 17:23 | NUR ---
PT RESTING IN BED, NO RESPRIATORY DISTRESS NOTED, DENIES PAIN, MOTHER AT BEDSIDE, CALL LIGHT WITHIN REACH.
[2018-11-17 17:30] VITALS: BP 109/65
--- NOTE | 2018-11-17 19:35 | NUR ---
RECEIVED PT RESTING IN BED, NO ACUTE DISTRESS NOTED. PT AOX4, DENIES RICHARDSON/DIZZINESS. PT ON NEUTROPENIC PRECAUTIONS, WBC= 0.7. ALL PRECAUTIONS IN PLACE. MEDSURG PT, DENIES CP. PULSES PALPABLE BILAT UPPER EXT, WEAK PEDAL PULSES D/T 3+ PITTING EDEMA BLE. RESP EVEN AND UNLABORED ON RA, DENIES SOB. ABD SOFT, FLAT, DENIES ABD PAIN. PT HAD MULTIPLE BM DURING DAYSHIFT. LOOSE. DENIES PAIN. PT VOIDS WITH MOMENTS OF INCONTINENCE. DENIES DYSURIA. GENERALIZED WEAKNESS, S/P FALL, BED ALARM ON. PT ON BEDREST AT THIS TIME. IV SITE TO THE LFA, NS @ 40ML/HR. NO REDNESS, SWELLING OR PAIN NOTED. PT ON ANTIVIRL/ANTIFUNGAL WELL ALBUMIN. PT BP HAS BEEN STABLE, PT REPORTS FEELING A LITTLE BETTER TODAY NOW THAT HE WAS ALLOWED TO HAVE OUTSIDE FOOD PER SOLAR INSTALLER PV. ALL COMFORT AND SAFETY MEASURES PROVIDED FOR, CALL LIGHT WITHIN REACH, BED IN LOWEST POSITION, WILL CONTINUE TO MONITOR.
[2018-11-17 21:06] VITALS: BP 106/67
[2018-11-18] VITALS (12 sets, daily range): BP systolic 94–107; BP diastolic 59–70
--- NOTE | 2018-11-18 02:15 | NUR ---
UPON ROUTINE ASSESSMENT, PT SEEN WITHOUT OXYGEN ON. REAPPLIED O2 AND EDUCATED PT ABOUT THE IMPORTANCE OF KEEPING OXYGEN ON. PT APPEARS VERY DISORIENTED, STATES "THE LADIES OVER THERE", WHE INQUIRING IF HE SEES THINGS, HE SAYS "SOMETIMES". ENSURED PT KNOWS HES IS SAFE AND HIS MOTHER IS HERE FOR HIM. PT STARTED TAKING ABOUT PANDAS AND OTHER NONCORRELATING ITEMS. OBTAINED VITALS; VSS. PT REMAINS AOX3, STATES HE THINKS HES IN [place]. REORIENTED, WILL CONTINUE TO MONITOR CLOSELY. UPDATED DR. GARZA IN REGARDS TO FLUCUATING MENTAL STATUS, NO NEW ORDERS AT THIS TIME. WILL ENSURE FREQ CHECKS THAT O2 REMAINS IN PLACE. CALL LIGHT WITHIN REACH, BED IN LOWEST POSITION, ALL SAFETY AND CONFORT MEASURES PROVIDED FOR.
--- NOTE | 2018-11-18 05:10 | NUR ---
PT RESTED IN INTERVALS DURING SHIFT, SOME CHNAGES IN MENTATION OCCURRING OVERNIGHT, DR. GARZA MADE AWARE AND UPDATED. PT SEEM REMOVING OXYGEN CANULA SEVERAL TIMES, REINFORCED TEACHING TO PT AND MOTHER THAT PT NEEDS TO KEEP IT ON ALWAYS D/T HE GETS CONFUSED QUICKLY W/O IT. MOTHER VERBALIZES UNDERSTANDING, PT RESPONSES IN A CONFUSED MANNER. WILL CONTINUE TO TRY TO REORIENT. VSS. PT REMAINS ON 3LNC. DENIES SOB. IV SITE REMAINS PATENT, ALL COMFORT AND SAFETY MEASURES PROVIDED FOR, CALL LIGHT WITHIN REACH, BED IN LOWEST POSITION, WILL CONTINUE TO MONITOR.
[2018-11-18 07:07] LABS: CALCIUM 8.2 mg/dL (8.5-10.1); CARBON DIOXIDE 20.8 mmol/L (21-32); CHLORIDE SERUM 112 mmol/L (98-107); CREATININE SERUM 0.4 mg/dL (0.7-1.3); GFR1 > 60 mL/min; GLUCOSE SERUM 92 mg/dL (74-106); MAGNESIUM 1.7 mg/dL (1.8-2.4); POTASSIUM SERUM 3.4 mmol/L (3.5-5.1); SODIUM SERUM 144 mmol/L (136-145)
--- NOTE | 2018-11-18 07:29 | NUR ---
ENDORSED ALL CARE TO DAYSHIFT NURSE, NO ACUTE DISTRESS NOTED. ALL QUESTIONS AND CONCERNS ADDRESSED. ALL COMFORT AND SAFETY MEASURES PROVIDED FOR, CALL LIGHT WITHIN REACH, BED IN LOWEST POSITION.
[2018-11-18 07:30] LABS: RED CELL DISTRIBUTION WIDTH 17.5 % (11.5-14.5)
--- NOTE | 2018-11-18 07:31 | NUR ---
WBC 0.9, HGB 5.9, HCT [address] GARZA.
--- NOTE | 2018-11-18 07:42 | NUR ---
PT RESTING IN BED WITH NC OFF, NC 3L PLACED BACK ON PT, PT EDUCATED ON NEED FOR OXYGEN AND NC, A+OX3, PERIODS OF CONFUSION, HX OF ORAL THRUSH, MEDSURG, PULSES MODERATE AND EQUAL TO BUE, PULSES WEAK TO BLE, LUNG SOUNDS CTA, 3L NC, SOB AT TIMES, BOWEL SOUNDS ACTIVE, INCONTINENT AT TIMES, POOR APPETITE, GENERALIZED SEVERE WEAKNESS, SCAB TO FOREHEAD, IV IN LFA WITH NS @ 40 ML/HR, SITE WNL, DR GARZA AWARE OF WBC 0.8, HGB 5.9, HCT 17.
--- NOTE | 2018-11-18 11:19 | NUR ---
DR PASTOR AT BEDSIDE TO EXPLAIN TO PT THAT BLOOD TRANSFUSION NEEDED. PT AGREEABLE. NO RESPRIATORY DISTRESS NOTED, CALL LIGHT WITHIN REACH. MOTHER AT BEDSIDE.
--- NOTE | 2018-11-18 12:38 | NUR ---
PT RESTING IN BED, NO RESPIRATORY DISTRESS NOTED, DENIES PAIN, MOTHER AT BEDSIDE ASSISTING PT WITH LUNCH, CALL LIGHT WITHIN REACH.
--- NOTE | 2018-11-18 14:03 | NUR ---
PT RESTING IN BED, NO RESPIRATORY DISTRESS NOTED, DENIES PAIN, MOTHER AT BEDSIDE, CALL LIGHT WITHIN REACH.
[2018-11-18 14:33] LABS: MONOCYTE 12 % (0-7); SEGMENTED NEUTROPHILS 63 % (37-75)
[2018-11-18 14:34] LABS: ATYPICAL LYMPH 3 %; BAND NEUTROPHIL 4 % (0-10); BASOPHIL 0 % (0-2)
[2018-11-18 14:35] LABS: rbc morphology (normal/abnorm) ABNORMAL (NORMAL)
[2018-11-18 14:36] LABS: PLATELET COUNT 23 x10^3mcL (130-400)
--- NOTE | 2018-11-18 15:13 | NUR ---
STARTED 1 UNIT OF PRBC INFUSION. VSS. NO DISTRESS REPORTED. VERIFIED BY JESSICA ORTEGA.
--- NOTE | 2018-11-18 16:12 | NUR ---
BLOOD TRASNFUSING WITHOUT INCIDENT, VS STABLE, TYLENOL AND BENADRYL GIVEN PRIOR TO TRANSFUSION, NO RESPIRATORY DISTRESS NOTED, CALL LIGHT WITHIN REACH, MOTHER AT BEDSIDE.
--- NOTE | 2018-11-18 16:21 | NUR ---
MG 1.[address] PASTOR. PER DR PASTOR, HOLD LASIX AFTER BLOOD TRANSFUSION DUE TO PT LOW BP.
--- NOTE | 2018-11-18 18:04 | NUR ---
PT RESTING IN BED, BLOOD TRANSFUSING WITHOUT INCIDENT, IV SITE IN LFA WNL, NO RESPRIATORY DISTRESS NOTED, MOTHER AT BEDSIDE, CALL LIGHT WITHIN REACH.
--- NOTE | 2018-11-18 18:10 | NUR ---
BLOOD TRANSFUSION COMPLETE, NO ADVERSE REACTIONS AT THIS TIME, VS STABLE, NO RESPRIATORY DISTRESS NOTED.
--- NOTE | 2018-11-18 19:05 | NUR ---
BLOOD TRANSFUSION INITIATED, WITNESSED BY ALYSE RN, TYLENOL PO AND BENADRYL PO GIVEN TO PT PRIOR TO TRANSFUSION, VS STABLE, NO RESPRIATORY DISTRESS NOTED, CALL LIGHT WITHIN REACH. WILL REMAIN IN ROOM WITH PT FOR 15 MINS.
--- NOTE | 2018-11-18 19:20 | NUR ---
AFTER 15 MINS, BLOOD TRANSFUSING WITHOUT INCIDENT, NO ADVERSE REACTION AT THIS TIME, DENIES PAIN, NO RESPIRATORY DISTRESS NOTED, CALL LIGHT WITHIN REACH.
--- NOTE | 2018-11-18 20:11 | NUR ---
PATIENT QUIETLY RESTING IN BED AT THIS TIME. A/OX2 REORIENTS WELL AND FOLLOWS SIMPLE COMMANDS. BED ALARM ON AND CALL LIGHT WITHIN REACH. 2ND UNIT OF PRBC CURRENTLY INFUSING AND PATIENT DENIES ANY S/SX OF BLOOD TRANSFUSION ADVERSE EFFECTS AT THIS TIME. WILL CONTINUE TO MONITOR. REMAINED ON NEUTROPENIC PRECAUTIONS.
--- NOTE | 2018-11-18 21:41 | NUR ---
2ND UNIT OF PRBC COMPLETED. PATIENT TOLERATED WELL. NO S/SX OF ADVERSE BLOOD REACTION. MOTHER BY BEDSIDE. ON 2 LITERS HUMIDIFIED NASAL CANNULA WITH OXYGEN SATURATION 97%. BLOOD TRANSFUSION POST VS 98.4, 72, 103/63, 17.
--- NOTE | 2018-11-18 21:43 | NUR ---
DR. GARZA MADE AWARE THAT 2ND UNIT OF BLOOD TRANSFUSION COMPLETED AND CBC RECHECK WITH BE DONE IN THE MORNING AND NOT TONIGHT. PER DR. GARZA OKJEFFY NOT TO GIVE TYLENOL OR BENADRYL S/P BLOOD TRANSFUSION UNLESS NEEDED.
--- NOTE | 2018-11-18 22:05 | NUR ---
PATIENT HAD X1 LARGE BROWN SOFT BOWEL MOVEMENT.
--- NOTE | 2018-11-19 01:54 | NUR ---
PER DR. KAYLA DON TO GIVE SCHEDULED ALBUMIN.
--- NOTE | 2018-11-19 03:42 | NUR ---
PATIENT QUIETLY SLEEPING IN BED AT THIS TIME. NO S/SX OF DISTRESS NOTED. CONTINUED ON 2 LITERS HUMIDIFIED NASAL CANNULA. BREATHING EVEN AND UNLABORED. REMAINED ON REVERSE ISOLATION PRECAUTIONS (NEUTROPENIC). MOTHER BY BEDSIDE. EMPTIED 300CC OF TEA COLORED URINE FROM URINAL.
[2018-11-19 05:39] VITALS: BP 105/70
[2018-11-19 06:40] LABS: CALCIUM 8.5 mg/dL (8.5-10.1); CARBON DIOXIDE 21.1 mmol/L (21-32); CHLORIDE SERUM 111 mmol/L (98-107); CREATININE SERUM 0.4 mg/dL (0.7-1.3); GFR1 > 60 mL/min; GLUCOSE SERUM 86 mg/dL (74-106); MAGNESIUM 1.7 mg/dL (1.8-2.4); PHOSPHOROUS 2.8 mg/dL (2.5-4.9); POTASSIUM SERUM 3.8 mmol/L (3.5-5.1); SODIUM SERUM 142 mmol/L (136-145)
[2018-11-19 06:47] VITALS: BP 116/68
--- NOTE | 2018-11-19 06:51 | NUR ---
PATIENT QUIETLY RESTING IN BED. REMAINED ON NEUTROPENIC PRECAUTIONS. NO S/SX OF DISTRESS NOTED. PATIENT DENIES ANY PAIN. REMAINS ON 2 LITERS NASAL CANNULA WITH HUMIDIFIER. IVF INFUSING TO LFA AT 40CC/HR NS, NO INFILTRATIO NOTED. CALL LIGHT AND BED ALARM ON FOR PATIENT SAFETY.
--- NOTE | 2018-11-19 07:05 | NUR ---
RECIEVED PT RESTING BED. HE REPORTS NO PAIN, DISTRESS, OR SOB AT THIS TIME. HE ALSO EXPRESSES THE DESIRE TO GO HOME TODAY, WILL LET CHARGE KNOW. A/OX2 WITH FORGETFULLNESS. NO RICHARDSON OR DIZZINESS. DENIES CP OR PRESSURE. LUNGS CTA. IV INTACT AND PATNET IN LFA RUNNINIG 40CC/HR. SAFETY PRECAUTIONS IN PLACE. CALL LIGHT WITHIN REACH. WILL MONITOR.
[2018-11-19 07:24] LABS: RED CELL DISTRIBUTION WIDTH 15.6 % (11.5-14.5)
[2018-11-19 09:00] VITALS: BP 105/69
[2018-11-19 09:22] LABS: MONOCYTE 4 % (0-7); SEGMENTED NEUTROPHILS 76 % (37-75)
[2018-11-19 09:23] LABS: ATYPICAL LYMPH 8 %
[2018-11-19 09:31] LABS: rbc morphology (normal/abnorm) ABNORMAL (NORMAL)
[2018-11-19 09:32] LABS: PLATELET MORPHOLOGY PLATELETS DECREASED
[2018-11-19 09:46] LABS: PLATELET COUNT 25 x10^3mcL (130-400)
--- NOTE | 2018-11-19 10:35 | NUR ---
NOTIFIED DR PASTOR PF PT LAB RESULTS. PLT COUNT 25, H/H 03/05, WBC 1.2, AN DRBC 2.92. NO NEW ORDERS AT THIS TIME. WILL F/U
--- NOTE | 2018-11-19 12:43 | NUR ---
PT RESTING COMFORTABLY IN BED WITH MOM AT SIDE. NO C/O PAIN, DISTRESS, OR SOB AT THIS TIME. SAFETY PRECAUTIONS IN PLACE, CALL LIGHT WITHIN REACH, WILL MONITOR.
--- NOTE | 2018-11-19 15:54 | NUR ---
PT RESTING IN BED WITH MOTHER AT BEDSIDE. NO PAIN OR DISTRESS NOTED. DENIES SOB AT THIS TIME. SAFETY PRECAUTIONS IN PLACE. TOLERATING ALL CARES WELL. CALL LIGHT WITHIN REACH, WILL MONITOR
[2018-11-19 16:54] VITALS: BP 100/63
--- NOTE | 2018-11-19 19:00 | NUR ---
PT STABLE AT THIS TIME WITH NO C/O PAIN, DISTRESS, OR SOB. ALL CARES TOLERATED WELL. IV ON LFA INTACT AND PATENT WITH NO REDNESS OR INFLAMMATION. VS WNL. MOTHER AT BEDSIDE. SAFETY PRECAUTIONS IN PLACE CALL LIGHT WITHIN REACH, ENDORSED CARE TO NIGHT NURSE.
--- NOTE | 2018-11-19 19:35 | NUR ---
RECEIVED PT RESTING IN BED, NO ACUTE DISTRESS NOTED. PT AOX3, STATES HE IS NOT IN THE HOSPITAL, REORIENTED NEEDED/ DENIES RICHARDSON/DIZZINESS. PT ON NEUTROPENIC PRECAUTIONS, WBC= 1.[address] MEDSURG PT, DENIES CP. PULSES PALPABLE BILAT UPPER EXT, WEAK PEDAL PULSES D/T 3+ PITTING EDEMA BLE. RESP EVEN AND UNLABORED ON 3LNC, DENIES SOB. ABD SOFT, SLIGHTLY DISTENDED. DENIES ABD PAIN. INCONTINENT OF STOOL. DENIES PAIN. PT VOIDS IN URINAL WITH MOMENTS OF INCONTINENCE. DENIES DYSURIA. GENERALIZED WEAKNESS, PT HX OF FALLS. PT ON BEDREST AT THIS TIME. IV SITE TO THE LFA, NS @ 40ML/HR. NO REDNESS, SWELLING OR PAIN NOTED. PT ON ANTIVIRL WELL ALBUMIN. PT BP HAS BEEN STABLE, PT APPEARS MORE ALERT AND ORIENTED THAN PERVIOUS DAYS. ALL COMFORT AND SAFETY MEASURES PROVIDED FOR, CALL LIGHT WITHIN REACH, BED IN LOWEST POSITION, WILL CONTINUE TO MONITOR.
[2018-11-19 19:48] VITALS: BP 100/63
[2018-11-19 21:44] VITALS: BP 114/73
--- NOTE | 2018-11-20 02:17 | NUR ---
INSERTED NEW IV TO THE LFA, 22G. PT TOLERATED WELL. REMOVED OLD IV FROM THE LFA D/T LEAKING AT INSERTION SITE. CATH INTACT. NO SWELLING, REDNESS, OR PAIN NOTED. CRISTY CONTINUE TO MONITOR.
--- NOTE | 2018-11-20 05:00 | NUR ---
PT RESTED IN INTERVALS DURING SHIFT, NO ACUTE CHANGES OCCURRING OVERNIGHT. PT IV CHANGED X2 DURING SHIFT D/T THE FIRST ONE WAS HURTING HIM AND THE 2ND PT PULLED OUT BY ACCIDENT. PT VSS, DENIES PAIN DURING SHIFT. PT HAS BM X2, CHANGED AND APPLIED OPTIFORM TO SACRAL AREA. PT REMAINS AOX3, PT FORGETS WHERE HE IS AT SOMETIMES. ABLE TO REORIENT. PT REMAINS ON 3LNC HUMIDIFIED O2, DENIES SOB. PT SHOWING GOOD RELIEF FROM BERATHING TX. ALL COMFORT AND SAFETY MEASURES PROVIDED FOR, CALL LIGHT WITHIN REACH, BED IN LOWEST POSITION, WILL CONTINUE TO MONITOR.
[2018-11-20 05:37] VITALS: BP 111/64
[2018-11-20 06:57] LABS: CALCIUM 8.6 mg/dL (8.5-10.1); CARBON DIOXIDE 21.7 mmol/L (21-32); CHLORIDE SERUM 107 mmol/L (98-107); CREATININE SERUM 0.4 mg/dL (0.7-1.3); GFR1 > 60 mL/min; GLUCOSE SERUM 76 mg/dL (74-106); MAGNESIUM 1.5 mg/dL (1.8-2.4); PHOSPHOROUS 2.5 mg/dL (2.5-4.9); POTASSIUM SERUM 3.4 mmol/L (3.5-5.1); SODIUM SERUM 141 mmol/L (136-145)
--- NOTE | 2018-11-20 07:05 | NUR ---
RECIEVED PT RESTING IN BED, NO C/O PAIN, DISTRESS, OR SOB. A/OX2 WITH FORGETFULLNESS, NO RICHARDSON OR DIZZINESS. PT ON 3 LPM O2 NC. DENIES ANY CP OR PRESSURE. NS RUNNING AT 4OML/HR IN RFA 22 GUAGE. IV INTACT AND PATENT WITH NO REDNESS OR INFLAMMATION NOTED. SAFETY PRECAUTIONS IN PLACE, CALL LIGHT WITHIN REACH, WILL CONTINUE TO MONITOR.
[2018-11-20 07:48] LABS: RED CELL DISTRIBUTION WIDTH 16.3 % (11.5-14.5)
[2018-11-20 09:30] VITALS: BP 107/68
--- NOTE | 2018-11-20 10:00 | NUR ---
PT RESTING IN BED AT THIS TIME. NO C/O PAIN, DISTRESS, OR SOB. MOTHER AT BEDSIDE, SAFETY PRECAUTIONS IN PLACE, CALL LIGHT WITHIN REACH, WILL CNTINUE TO MONITOR.
--- NOTE | 2018-11-20 11:28 | NUR ---
1. Recommend continuing Neutropenic regular diet with Ensure Enlive BID.
--- NOTE | 2018-11-20 11:28 | NUR ---
Follow-up Nutrition Assessment: 219/B MICHELLE SHAW HR Dx: Intractable vomiting, End stage AIDS PMHx: HIV (September 2017), AIDS, Asthma Labs: (11/20) K 3.4L, CREAT 0.4L, WBC 0.6L, ALB 2.5L, MG 1.5L, WBC 1.3L Meds: Albuminar, difulcan, ferrous sulfate, megace, folic acid, oscal with vit D, zofran Diet: Regular (Neutropenic), (Pt OK to have outside food). PO Intake: (11/16) 25% Weights: (11/10) 43 kg Skin: scab to forehead Juan Luis: 14 I/Os: 1400/602 Edema: +3 pitting edema to BLE GI: incontinent of stool Last BM: 11/20 RDN Visit (11/17): Pt looks extremely emaciated and malnourished. Pt said that he ate some home-cooked chicken and rice this morning. Patient said that he would try to drink Ensure Enlive today. There are no significant changes from a nutrition standpoint at this time since last visit. Neutropenic diet precautions were reiterated to the patient and mother. She was told to discard food sitting at room temperature after 4 hours. Estimated Nutritional Needs Based on body weight 43.1 kg Energy: 4168-6489 kcal/d (35-40 kcal/kg- weight gain) Protein: 51.7- 64.6 g/d (1.2-1.5 g/kg)- d/t loss of LBM Fluid: 6488-9070 ml/d (1 ml/kcal) or per doctor Nutrition Diagnosis 1.Malnutrition related to AIDS as evidenced by unintentional weight loss of 6# in one week, loss of LBM, BMI 15.4 kg/m2. (ongoing-worsening) Intervention 1. Recommend continuing Neutropenic regular diet with Ensure Enlive BID. Monitor/Evaluate Goal: Have pt meet at least 75% of estimated needs Monitor: PO intake, Labs, GI function F/U in 2-3 days as high risk 11/22-
--- NOTE | 2018-11-20 14:16 | NUR ---
PT STILL STABLE WITH NO C/O ANY PAIN, DISTRESS, OR SOB. MOTHER AT BEDSIDE. SAFETY PRECAUTIONS IN PLACE, CALL LIGHT WITHIN REACH, WILL MONITOR,
[2018-11-20 14:17] LABS: ATYPICAL LYMPH 1 %; BAND NEUTROPHIL 4 % (0-10); MONOCYTE 8 % (0-7); SEGMENTED NEUTROPHILS 71 % (37-75)
[2018-11-20 14:18] LABS: PLATELET MORPHOLOGY PLATELETS DECREASED; rbc morphology (normal/abnorm) ABNORMAL (NORMAL)
--- NOTE | 2018-11-20 14:20 | NUR ---
PHYSICAL THERAPY NOTE SEEN FOR PHTYSICAL THERAPY SCHEDULED SESSION. PATIENT DEMONSTRATED NO IMPROVEMENT ON FUNCTIONAL MOBILITES. ALSO DEMO POOR TOLERANCE DUE TO SEVERE WEAKNESS. PATIENT IS NOT A GOOD CANDIDATE TO CONTINUE PHYSICAL THERAPY. DISCHARGED FROM PHYSICAL THERAPY. END TO [facility] FOR ADLS AND MOB NEEDS
[2018-11-20 14:24] LABS: PLATELET COUNT 25 x10^3mcL (130-400)
[2018-11-20 18:23] VITALS: BP 110/69
--- NOTE | 2018-11-20 19:00 | NUR ---
PT RECIEVED FROM THE DAY SHIFT. PT IS ALERT AND ORIENTED X2, CALM AND COOPERATIVE WITH CARE, PT IS ON REVERSE ISOLATION PRECAUTIONS, PT IS ON 3L O2 VIA NC, BREATHING IS CLEAR TO AUSCULTATION, IV IS PATENT AND INTACT, SAFETY AND COMFORT MEASURES MAINTAINED, BED IN LOWEST POSITION, CALL LIGHT WITHIN REACH, PT APPEARS TO BE SLEEPY BUT EASILY AROUSABLE TO VERBAL STIMULUS. WILL CONTINUE TO MONITOR AT THIS TIME.
--- NOTE | 2018-11-20 19:28 | NUR ---
PT STABLE AT THSI TIME WITH NO C/O PAIN, DISTRESS, OR SOB. IV INTACT AND PATENT WITH NO REDNESS OR INFLAMMATION NOTED. DENIES CP OR PRESSURE. SAFETY PRECAUTIONS IN PLACE, CALL LIGHT WITHIN REACH, ENDORSED CARE TO NIGHT NURSE
[2018-11-20 20:53] VITALS: BP 107/64
--- NOTE | 2018-11-20 23:54 | NUR ---
PT IS RESTING IN BED WITH EYES CLOSED AT THIS TIME. MOTHER IS AT THE BEDSIDE. NO COMPLAINT OF PAIN AT THIS TIME. NO ACUTE DISTRESS NOTED. PT HAS BEEN CALM AND COOPERATIVE WITH CARE. SAFETY AND COMFORT MEASURES MAINTAINED, BED IN LOWEST POSITION, CALL LIGHT WITHIN REACH.
--- NOTE | 2018-11-21 01:03 | NUR ---
PT IS RESTING IN BED WITH EYES CLOSED AT THIS TIME. NO S/S OF PAIN NOTED. MOTHER IS AT THE BEDSIDE. IV INFUSING AND INTACT. SAFETY AND COMFMORT MEASURES MAINTAINED, BED IN LOWEST POSITION, CALL LIGHT WITHIN REACH.
--- NOTE | 2018-11-21 05:08 | NUR ---
PT HAS RESTED IN INTERMITTENT INTERVAL THROGHOUT THE SHIFT. NO ACUTE DISTRESS NOTED. PT HAS BEEN ALERT AND ORIENTED X2 PT IS FORGETFUL AT TIMES. MOTHER IS AT THE BEDSIDE, REVERSE ISOLATION PRECAUTIONS IN PLACE. IV INFUSING AND INTACT. NO COMPLAINT OF PAIN AT THIS TIME. SAFETY AND COMFORT MEASURES MAINTAINED, BED IN LOWEST POSITION, CALL LIGHT WITHIN REACH. WILL ENDORSE CONTINUITY OF CARE TO THE ONCOMING RN.
[2018-11-21 05:41] VITALS: BP 108/68
[2018-11-21 07:03] LABS: RED CELL DISTRIBUTION WIDTH 16.2 % (11.5-14.5)
[2018-11-21 07:04] LABS: PLATELET COUNT 33 x10^3mcL (130-400)
--- NOTE | 2018-11-21 07:15 | NUR ---
RECEIVED HAND OFF REPORT FROM RN. FOUND PATIENT AWAKE A/O X2 IN BED LAYING SUPINE ON 2L NC. PATIENT HAD NO COMPLAINTS AT THIS TIME EXCEPT VOICED DESIRE TO GO HOME. NO MONITOR PRESENT. EDEMA NOTED TO LOWER EXTREMITIES. CALL LIGHT WITHIN REACH
[2018-11-21 07:31] LABS: CALCIUM 8.6 mg/dL (8.5-10.1); CARBON DIOXIDE 22.5 mmol/L (21-32); CHLORIDE SERUM 110 mmol/L (98-107); CREATININE SERUM 0.3 mg/dL (0.7-1.3); GFR1 > 60 mL/min; GLUCOSE SERUM 67 mg/dL (74-106); MAGNESIUM 1.5 mg/dL (1.8-2.4); PHOSPHOROUS 2.4 mg/dL (2.5-4.9); POTASSIUM SERUM 3.7 mmol/L (3.5-5.1); SODIUM SERUM 144 mmol/L (136-145)
[2018-11-21 07:40] VITALS: BP 114/69
[2018-11-21 08:11] VITALS: BP 114/69
[2018-11-21 10:05] LABS: BAND NEUTROPHIL 6 % (0-10); BASOPHIL 0 % (0-2); MONOCYTE 9 % (0-7); SEGMENTED NEUTROPHILS 73 % (37-75)
[2018-11-21 10:06] LABS: PLATELET MORPHOLOGY PLATELETS DECREASED; rbc morphology (normal/abnorm) ABNORMAL (NORMAL)
--- NOTE | 2018-11-21 10:17 | NUR ---
MEDICATIONS ADMINISTERED PER MAR, WITH NO INCIDENTS. DR TUCKER AND DR STARR ROUNDED ON PATIENT. INSTRUCTED PATIENT ON PLAN OF CARE, ANSWERED QUESTIONS THAT AROSE. PATIENT MOTHER NOT AT BEDSIDE. INFORMED DR STARR OF MAG LEVEL 1.5. DR VIGIL IN ORDER FOR PO MAGNESIUM TO BE GIVEN AT 11. CALL LIGHT WITHIN REACH.
--- NOTE | 2018-11-21 12:34 | NUR ---
BEGAN MAG INFUSION, DELAYED DUE TO PREVIOUS INFUSION NOT FINISHED YET. PATIENT SITTING UP IN BED, LUNCH TRAY GIVEN. NO COMPLAINTS AT THIS TIME. CALL LIGHT WITHIN REACH
--- NOTE | 2018-11-21 14:00 | NUR ---
DR LEWIS ONCOLOGIST, SAW PATIENT AND PATIENT'S MOTHER AT BEDSIDE. EXPLAINED PATIENT CONDITIONS AND ANSWERED QUESTIONS FROM PATIENT AND FAMILY. PER ONCOLOGIST, RECOMMEND PATIENT TO STAY ON HIV MED AND GAIN AT LEAST 2OLB IN ORDER TO DO CHEMO. DR LEWIS ALSO SPOKE WITH DR PAREDES IN REGARDS TO HIS PLANS.
--- NOTE | 2018-11-21 14:26 | NUR ---
STARTED ALBUMIN PER MAR. IN INCIDENT OR INJURY. MOTHER AT BEDSIDE. NO FURTHER COMPLAINTS AT THIS TIME
[2018-11-21 16:22] VITALS: BP 117/68
--- NOTE | 2018-11-21 17:01 | NUR ---
PATIENT RESTING COMFORTABLY AT THIS TIME WITH MOTHER AT BEDSIDE. NO COMPLAINTS AT THIS TIME. CALL LIGHT WITHIN REACH
--- NOTE | 2018-11-21 19:35 | NUR ---
RECEIVED PT FROM DAY SHIFT RN. PT AAOX3 DENIES HEADACHE OR DIZZINESS. MEDSURG PT DENIES CHEST PAIN. BREATHING EVEN AND UNLABORED ON NC 2L/MIN, NO SOB NOTED. BLE EDEMA NOTED. ABD SOFT AND ROUND, ACTIVE BOWEL SOUNDS, DENIES ABD PAIN/N/V. GENERALIZED WEAKNESS NOTED. OPTIFOAM ON BUTTOCKS, CDI. IV RFA PATENT, INFUSING WELL WITH NO SIGNS OF INFILTRATION NOTED. PT DENIES ANY DISTRESS/DISCOMFORT. CALL BUTTON WITHIN REACH. SAFETY PRECAUTIONS IN PLACE. NEUTROPENIC PRECAUTIONS IN PLACE. WILL CONTINUE TO MONITOR.
[2018-11-21 20:26] VITALS: BP 111/71
--- NOTE | 2018-11-21 20:35 | NUR ---
DR VALADEZ MADE AWARE PT HAS AN ORDER FOR KCL 20MEQ THROUGH NG TUBE, DR GARZA MADE AWARE PT DOES NOT HAVE NG TUBE AND CURRENT K 3.[address] GARZA TO HOLD TONIGHTS DOSE.
--- NOTE | 2018-11-21 21:45 | NUR ---
PT REPORTED HAVING A HEADACHE, MEDICATED PER EMAR. CALL BUTTON WITHIN REACH, SAFETY PRECAUTIONS IN PLACE. MOTHER AT BEDSIDE. WILL CONTINUE TO MONITOR.
[2018-11-22] VITALS (10 sets, daily range): BP systolic 99–120; BP diastolic 63–79
--- NOTE | 2018-11-22 00:30 | NUR ---
PT AWAKE, DENIES ANY PAIN AT THIS TIME. BREATHING EVEN AND UNLABORED, NC IN PLACE. IV PATENT, INFUSING WELL. CALL BUTTON WITHIN REACH. SAFETY PRECAUTIONS IN PLACE. WILL CONTINUE TO MONITOR.
--- NOTE | 2018-11-22 02:28 | NUR ---
PT REPORTED HAVING BACK PAIN, REQUESTING TYLENOL. DR GARZA MADE AWARE TYLENOL PER EMAR NOT DUE YET. AWAITING NEW ORDER.
--- NOTE | 2018-11-22 04:28 | NUR ---
PT AWAKE, DENIES ANY PAIN. NC IN PLACE. NO SIGNS OF DISTRESS NOTED. IV PATENT, INFUSING WELL. CALL BUTTON WITHIN REACH. SAFETY PRECAUTIONS IN PLACE. MOTHER AT BEDSIDE. WILL CONTINUE TO MONITOR.
--- NOTE | 2018-11-22 05:08 | NUR ---
PT SLEPT POORLY THROUGHOUT THE NIGHT. BREATHING EVEN AND UNLABORED, ON NC 2L/MIN NO SOB NOTED. NO SIGNS OF DISTRESS THROUGHOUT THE NIGHT. PT REPORTED HAVING RICHARDSON, BACK PAIN, MEDICATED PER EMAR W/ RELIEF. IV PATENT, INFUSING WELL. CALL BUTTON WITHIN REACH. SAFETY PRECAUTIONS IN PLACE. WILL CONTINUE TO MONITOR AND ENDORSE CARE TO DAY SHIFT RN.
[2018-11-22 06:36] LABS: CARBON DIOXIDE 25.2 mmol/L (21-32); CHLORIDE SERUM 107 mmol/L (98-107); CREATININE SERUM 0.4 mg/dL (0.7-1.3); GFR1 > 60 mL/min; GLUCOSE SERUM 81 mg/dL (74-106); MAGNESIUM 1.8 mg/dL (1.8-2.4); PHOSPHOROUS 2.3 mg/dL (2.5-4.9); POTASSIUM SERUM 3.2 mmol/L (3.5-5.1); SODIUM SERUM 140 mmol/L (136-145)
--- NOTE | 2018-11-22 07:35 | NUR ---
PT AWAKE, NO SIGNS OF DISTRESS NOTED. ENDORSED CARE TO DAY SHIFT RN, ALL QUESTIONS ADDRESSED.
--- NOTE | 2018-11-22 07:47 | NUR ---
RECEIVED HAND OFF REPORT. FOUND PATIENT LAYING SUPINE IN BED, A/0 X3 SLIGHTLY CONFUSED, NORMAL FOR PAT, ON 2L NC WITH NO DIFICULTY BRETHING. PATIENT DID NOT COMPLAIN OF ANY PAIN, SAID HE HAD A BOWEL MOVEMENT, NOTIFED LAST REPAIRER HELPER TO ASSIST CHANGING PATIENT. CALL LIGHT WITHIN REACH
--- NOTE | 2018-11-22 07:56 | NUR ---
PT HAD LARGE SOFT BM, PT CLEANED, LINENS CHANGED, GOWN CHANGED, HYDRAGAURD PLACED ON BUTTOCKS, OPTIFOAM PLACED TO SACRAL/COCCYX AREA, NO RESPIRATORY DISTRESS NOTED, CALL LIGHT WITHIN REACH.
[2018-11-22 08:18] LABS: PLATELET COUNT 39 x10^3mcL (130-400); RED CELL DISTRIBUTION WIDTH 15.8 % (11.5-14.5)
--- NOTE | 2018-11-22 08:21 | NUR ---
REPORTED CRITCAL VALUES TO DR GROVES, WBC 1.2, HEMOGLOBIN 6.4 HEMATOCRIT 19, PLATLETS 39.
--- NOTE | 2018-11-22 10:26 | NUR ---
ADMINISTERED MEDICATIONS PER AUG, INFORMED DR GROVES OF POTASSIUM 3.2 WITH NO ORDER FOR COVERAGE. PATIENT BROTHER ARRIVED, HELPED PATIENT TO SIT UP AND EAT, CALL LIGHT WITHIN REACH
--- NOTE | 2018-11-22 12:11 | NUR ---
Follow-up Nutrition Assessment: Rolando Alcaraz 219-B Dx: Intractable vomiting and end stage aids Labs:(11/22) K:3.2L, Ca:8L, Phos:2.3L, WBC:1.2L, H/H:6.4/19L Meds: Albuminar, Dapson, Diflucan, Ferrous sulfate, Folic acid, Fodcavir, Megace, Oscal with Vitamin D, Pulmicort, NS IV, Zithromax, Zofran Current Diet Order: Regular and ok to have outside food per doctor orders PO intake: (11/20) B:0% (11/21) hold tray per pt. No PO intake recorded since 11/21 Weights: (11/10) 43kg (11/22) 44kg Skin: scab to forehead Edema: BLE edema Last BM: 11/20 Per progress note 11/22, Hematology/Oncology consult with Dr. Bahena recommends continuing anti-retroviral treatment and to be compliant with medication and continue nutritional diet for weight gain. Patient is on Day 4 of Fosc[place]et. Nati does not want hospice at this time. During visit, pt was seen laying in bed with brother at bedside who helped pt sit up and eat. Pt tolerating diet with no c/o GI issues. Pt lethargic during RD visit. Will continue to encourage pt to eat and will continue to monitor. Estimated Nutritional Needs based on actual body weight: 43.1kg Energy: 1500-1700kcal/day (35-40kcal/kg for weight gain) Protein: 52-65g/day (1.2-1.5g/kg for weight gain) Fluid:1500-1700ml/day (1ml/kcal) or per doctor Nutrition Diagnosis 1. Malnutrition related to AIDS as evidenced by unintentional weight loss of 6# in one week, loss of LBM, BMI:15.4kg/m2 (ongoing) Intervention 1. Recommend continuing neutropenic regular diet with ensure enlive BID and outside food. Monitor/Evaluate Previous goal: PO intake at least 75% of estimated needs Goal: PO intake at least 75% of estimated needs Monitor: PO intake/tolerance, Labs, GI function and weights F/U in 2-3 days as high risk: 11/24-
--- NOTE | 2018-11-22 12:12 | NUR ---
1. Recommend continuing neutropenic regular diet with ensure enlive BID and outside food.
--- NOTE | 2018-11-22 12:42 | NUR ---
BLOOD TRANSFUSION INITIATED, WITNESSED BY JORDAN LOPEZ. TYLONOL AND BENADRYL GIVEN PRIOR TO TRANSFUSION. VS STABLE PRIOR TO TRANSFUSION. WILL REMAIN IN ROOM FOR 15 MINUTES TO OBSERVE FOR ADVERSE REACTION.
--- NOTE | 2018-11-22 12:57 | NUR ---
AFTER 15 MINUTES PATIENT TOLERATING TRANSFUSION WELL. VS STABLE, NO RESP DISTRESS NOTED, DENIES PAIN. WILL CONITUE WITH TRANSFUSION PATIENT EDUCATED TO USE CALL LIGHT FOR SOB, PAIN, ITCHINESS, FEVER. INCREASED INFUSION RATE TO 100ML/H. CALL LIGHT WITHIN REACH, FAMILY AT BEDSIDE
[2018-11-22 13:15] LABS: BAND NEUTROPHIL 9 % (0-10); MONOCYTE 7 % (0-7); SEGMENTED NEUTROPHILS 80 % (37-75)
[2018-11-22 13:16] LABS: PLATELET MORPHOLOGY PLATELETS DECREASED; rbc morphology (normal/abnorm) ABNORMAL (NORMAL)
--- NOTE | 2018-11-22 15:00 | NUR ---
PATIENT UTILIZED CALL LIGHT, URINAL WAS PLACED OUT OF REACH. PATIENT TOLLERATING BLOOD TRANSFUSION WELL. NOT COMPLAINING OF CHILLS, ITCHING, OR SOB. CALL LIGHT WITHIN REACH
--- NOTE | 2018-11-22 16:15 | NUR ---
DR GROVES INFORMED THAT THERE IS NO ORDER FOR ACETAMINOPHEN AND BENADRYL FOR SECOND UNIT OF BLOOD TRANSFUSION. DR GROVES SAID TO HOLD THE ACETAMINOPHEN AND BENADRYL FOR THE SECOND UNIT
--- NOTE | 2018-11-22 16:31 | NUR ---
BLOOD TRANSFUSION COMPLETE. NO ADVERSE REACTIONS AT THIS TIME, VSS. NO RESPIRATORY DISTRESS NOTED, DENIES PAIN, IV FLUSHED.
--- NOTE | 2018-11-22 16:41 | NUR ---
ALBUMIN INFUSION STARTED. DELAYED DUE TO BLOOD TRANSFUSION. PATIENT IN NO APPARENT DISTRESS, DENIES PAIN. FAMILY AT BEDSIDE AND CALL LIGHT WITHIN REACH
--- NOTE | 2018-11-22 18:01 | NUR ---
BLOOD TRANSFUSION STARTED, PATIENT VS STABLE, DENIES PAIN, ITCHINESS. WILL REMAIN IN ROOM FOR 15 MINUTES TO OBSERVE FOR ADVERSE REACTION. WITNESSED BY JORDAN LOPEZ. TAUGHT PATIENT ABOUT SYMPTOMS OF ADVERSE REACTION
--- NOTE | 2018-11-22 18:16 | NUR ---
AFTER 15 MINUTES, PATIENT IS TOLERATING BLOOD TRANSFUSION WELL, VITAL SIGNS STABLE. NO COMPLAINTS OF PAIN, ITCHINESS, OF FEVER. REINFORCED TEACHING ABOUT SYMPTOMS OF ADVERSE REACTIONS. BROTHER AT BEDSIDE. CALL LIGHT WITHIN REACH
--- NOTE | 2018-11-22 18:58 | NUR ---
CHECKED ON PATIENT. NO COMPLAINTS AT THIS TIME. SITTING UP WITH BLOOD TRANSFUSION STILL IN PROGRESS. MOTHER NOW AT BEDSIDE. CALL LIGHT WITHIN REACH
--- NOTE | 2018-11-22 19:32 | NUR ---
RECEIVED PT FROM DAY SHIFT RN. PT AAOX3 DENIES HEADACHE OR DIZZINESS. MEDSURG PT DENIES CHEST PAIN. BREATHING EVEN AND UNLABORED ON NC 2L/MIN, NO SOB NOTED. BLE EDEMA NOTED. ABD SOFT AND ROUND, ACTIVE BOWEL SOUNDS, DENIES ABD PAIN/N/V. GENERALIZED WEAKNESS NOTED. OPTIFOAM ON BUTTOCKS, CDI. IV RFA PATENT, BLOOD TRANSFUSION INFUSING WELL WITH NO SIGNS OF INFILTRATION NOTED. PT DENIES ANY DISTRESS AND MADE AWARE OF ANY BLOOD REACTION/SIDE EFFECTS. CALL BUTTON WITHIN REACH. SAFETY PRECAUTIONS IN PLACE. NEUTROPENIC PRECAUTIONS. MOTHER AT BEDSIDE. WILL CONTINUE TO MONITOR.
--- NOTE | 2018-11-22 21:03 | NUR ---
2044 BLOOD TRANSFUSION COMPLETED. TEMP 98.5, RR 18, BP 109/74, HR 81, 94% ON NC 2L/MIN NO SOB NOTED. NO SIGNS OF ADVERSE REACTION NOTED. NO SIGNS OF DISTRESS NOTED. CALL BUTTON WITHIN REACH. SAFETY PRECAUTIONS IN PLACE. MOTHER AT BEDSIDE. WILL CONTINUE TO MONITOR.
--- NOTE | 2018-11-22 23:48 | NUR ---
PT AWAKE IN BED, DENIES ANY PAIN OR DISTRESS. NC IN PLACE AT 2L/MIN WITH NO RESP DISTRESS NOTED. IV PATENT, INFUSING WELL. CALL BUTTON WITHIN REACH. SAFETY PRECAUTIONS IN PLACE. NEUTROPENIC PRECAUTIONS. MOTHER AT BEDSIDE. WILL CONTINUE TO MONITOR.
--- NOTE | 2018-11-23 02:38 | NUR ---
PT HAD A LARGE SOFT BM, CHANGED AND REPOSITIONED AT THIS TIME. FEET ELEVATED. NO SIGNS OF DISTRESS NOTED. CALL BUTTON WITHIN REACH. SAFETY PRECAUTIONS IN PLACE. WILL CONTINUE TO MONITOR.
--- NOTE | 2018-11-23 02:40 | NUR ---
CABLE REPAIRER AT BEDSIDE.
[2018-11-23 03:00] LABS: PLATELET COUNT 37 x10^3mcL (130-400); RED CELL DISTRIBUTION WIDTH 15.7 % (11.5-14.5)
--- NOTE | 2018-11-23 03:00 | NUR ---
DR COREY MADE AWARE OF LAB RESULTS WBC 1.3, H/H 8.8/26 NO NEW ORDERS AT THIS TIME.
[2018-11-23 03:10] LABS: MONOCYTE 11 % (0-7); SEGMENTED NEUTROPHILS 80 % (37-75)
[2018-11-23 03:13] LABS: rbc morphology (normal/abnorm) ABNORMAL (NORMAL)
[2018-11-23 03:14] LABS: PLATELET MORPHOLOGY PLATELETS DECREASED; schistocyte (helmet cell) 1+
--- NOTE | 2018-11-23 05:15 | NUR ---
PT SLEPT POORLY THROUGOUT THE NIGHT WITH NO SIGNS OF DISTRESS. NC 2L/MIN NO SOB NOTED. PT ABLE TO REPOSITIONED SELF WITH MINIMAL ASSISTANCE. MEDICATED PER EMAR. IV PATENT, INFUSING WELL NO SIGNS OF INFILTRATION. CALL BUTTON WITHIN REACH. WILL CONTINUE TO MONITOR AND ENDORSE CARE TO DAY SHIFT RN.
[2018-11-23 05:37] VITALS: BP 104/68
[2018-11-23 06:56] LABS: CALCIUM 8.5 mg/dL (8.5-10.1); CARBON DIOXIDE 21.2 mmol/L (21-32); CHLORIDE SERUM 112 mmol/L (98-107); CREATININE SERUM 0.4 mg/dL (0.7-1.3); GFR1 > 60 mL/min; GLUCOSE SERUM 77 mg/dL (74-106); MAGNESIUM 1.8 mg/dL (1.8-2.4); PHOSPHOROUS 1.9 mg/dL (2.5-4.9); POTASSIUM SERUM 3.5 mmol/L (3.5-5.1); SODIUM SERUM 146 mmol/L (136-145)
--- NOTE | 2018-11-23 07:21 | NUR ---
PT AWAKE, NO SIGNS OF DISTRESS NOTED. ENDORSED CARE TO DAY SHIFT RN, ALL QUESTIONS ADDRESSED.
[2018-11-23 07:53] VITALS: BP 111/69
[2018-11-23 08:43] LABS: RED CELL DISTRIBUTION WIDTH 15.8 % (11.5-14.5)
--- NOTE | 2018-11-23 09:13 | NUR ---
FOUND PATIENT SITTING UPIN BED, ALERT. NO COMPLAINTS OF PAIN AT THIS TIME. ADMINISTERED MEDICATIONS PER MAR. INFORMED PATIENT OF PLAN OF CARE AND RESULTS OF AM BLOOD TESTS AFTER BLOOD ADMINISTRATION. PATIENT VERBALIZES UNDERTANDING. CALL LIGHT WIHTIN REACH.
--- NOTE | 2018-11-23 09:54 | NUR ---
DR TUCKER ROUNDED WITH RESIDENT. NO NEW INFORMATION FOR PLAN OF CARE. WILL CONTINUE TO MONITOR PATIENT.
--- NOTE | 2018-11-23 10:40 | NUR ---
BEGAIN INFUSION OF FOSCAVIR IV PER MAR. PATIENT DENIES COMPLAINT AT THIS TIME. REINFORCED PLAN OF CARE TO PATIENT. CALL LIGHT WITHIN REACH
--- NOTE | 2018-11-23 13:03 | NUR ---
ADMINISTERED MEDICATIONS PER MAR. PATIENT RESTING COMFORTABLY. REFUSED TO ELIVATE FEET WHEN SUGGESTED. NO COMPLAINTS AT THISTIME. CALL LIGHT WITHIN REACH
--- NOTE | 2018-11-23 13:40 | NUR ---
FOUND PATIENT SITTING UP ON SIDE OF BED WITH FEET OVER EDGE. PAIEINT NOT COMPLAINING OF SHORTNESS OF BREATH. DENIES PAIN. UPDATED PATIENT OF PLAN OF CARE AND NEED FOR HOME 02. PATIENT WANTS TO GO HOME BUT UNDERSTANDS NEED TO WAIT FOR [employer] EDUC[employer] DIRECTOR TO HEP WITH HOME O2 PLACEMENT. CALL LIGHT WITHIN REACH
--- NOTE | 2018-11-23 13:54 | NUR ---
ALBUMIN INFUSION FINISHED. CONTINUED NS INFUSION PER ORDER
[2018-11-23 14:40] LABS: BAND NEUTROPHIL 7 % (0-10); MONOCYTE 8 % (0-7); SEGMENTED NEUTROPHILS 74 % (37-75)
[2018-11-23 14:41] LABS: BASOPHIL 1 % (0-2); burr cell (echinocyte) 1+; rbc morphology (normal/abnorm) ABNORMAL (NORMAL)
[2018-11-23 14:42] LABS: PLATELET MORPHOLOGY PLATELETS DECREASED
[2018-11-23 14:50] LABS: PLATELET COUNT 40 x10^3mcL (130-400)
[2018-11-23 16:59] VITALS: BP 115/72
--- NOTE | 2018-11-23 17:34 | NUR ---
ADMINISTERED MEDICATIONS PER MAR. PATIENT NOT COMPLAINING OF PAIN AT THIS TIME. PATIENT ALERT AND ASKING WHEN HE CAN GO HOME. REMINDED PATIENT OF NEED FOR WBC TO INCREASE AND HGB TO STABALIZE. CALL LIGHT WITHIN REACH
--- NOTE | 2018-11-23 17:38 | NUR ---
CALLED PATIENT MOTHER, JANELLE, AND INFORMED HER THAT PATIENT IS OUT OF HOME MEDICATION, BITKARVY, AND NEEDS TO BRING MORE. JANELLE STATED SHE UNDERSTOOD AND WILL BRING THE BOTTLE WITH HER WHEN SHE COMES TO VISIT IN ABOUT AN HOUR FROM NOW
--- NOTE | 2018-11-23 19:22 | NUR ---
RECEIVED PT FROM DAY SHIFT RN. PT AAOX3 DENIES HEADACHE OR DIZZINESS. MEDSURG PT DENIES CHEST PAIN. BREATHING EVEN AND UNLABORED ON NC 2L/MIN, NO SOB NOTED. BLE EDEMA NOTED. ABD SOFT AND ROUND, ACTIVE BOWEL SOUNDS, DENIES ABD PAIN/N/V. GENERALIZED WEAKNESS NOTED. OPTIFOAM ON BUTTOCKS, CDI. IV RFA PATENT, INFUSING WELL WITH NO SIGNS OF INFILTRATION NOTED. CALL BUTTON WITHIN REACH. SAFETY PRECAUTIONS IN PLACE. NEUTROPENIC PRECAUTIONS. MOTHER AT BEDSIDE. WILL CONTINUE TO MONITOR.
[2018-11-23 20:59] VITALS: BP 109/74
--- NOTE | 2018-11-24 00:28 | NUR ---
PT AWAKE, DENIES ANY PAIN AT THIS TIME. BREATHING EVEN AND UNLABORED, NC 2L/MIN IN PLACE, NO SOB NOTED. IV PATENT, INFUSING WELL. NO SIGNS OF DISTRESS NOTED. CALL BUTTON WITHIN REACH. SAFETY PRECAUTIONS IN PLACE. WILL CONTINUE TO MONITOR.
--- NOTE | 2018-11-24 04:05 | NUR ---
PT RESTING, BREATHING EVEN AND UNLABORED WITH NO SOB NOTED, NC IN PLACE AT 2L/MIN. IV INFUSING WELL. NO SIGNS OF DISTRESS. CALL BUTTON WITHIN REACH. SAFETY PRECAUTIONS. NEUTROPENIC PRECAUTIONS. WILL MONITOR.
--- NOTE | 2018-11-24 04:48 | NUR ---
PT SLEPT ON AND OFF THROUGHOUT THE NIGHT WITH NO SIGNS OF DISTRESS NOTED. BREATHING EVEN AND UNLABORED ON NC 2L/MIN. IV PATENT, INFUSING WELL WITH NO SIGNS OF DISTRESS. MEDICATED PER EMAR. PT DENIES ANY PAIN OR DISCOMFORT. PT TURN AND REPOSITION NEEDED. ELEVATED FEET ON A PILLOW. CALL BUTTON WITHIN REACH. MOTHER AT BEDSIDE. SAFETY PRECAUTIONS IN PLACE. NEUTROPENIC PRECAUTIONS. WILL CONTINUE TO MONITOR AND ENDORSE CARE TO DAY SHIFT RN.
[2018-11-24 05:41] VITALS: BP 111/68
--- NOTE | 2018-11-24 07:19 | NUR ---
PT AWAKE, DENIES PAIN. NO SIGNS OF DISTRESS NOTED. IV PATENT, INFUSING WELL. CALL BUTTON WITHIN REACH. SAFETY PRECAUTIONS IN PLACE. NEUTROPENIC PRECAUTIONS. ENDORSED CARE TO DAY SHIFT RN, ALL QUESTIONS ADDRESSED.
[2018-11-24 07:22] LABS: CALCIUM 8.3 mg/dL (8.5-10.1); CARBON DIOXIDE 21.4 mmol/L (21-32); CHLORIDE SERUM 112 mmol/L (98-107); CREATININE SERUM 0.3 mg/dL (0.7-1.3); GFR1 > 60 mL/min; MAGNESIUM 1.8 mg/dL (1.8-2.4); PHOSPHOROUS 2.1 mg/dL (2.5-4.9); POTASSIUM SERUM 3.3 mmol/L (3.5-5.1); SODIUM SERUM 147 mmol/L (136-145)
[2018-11-24 07:27] LABS: GLUCOSE SERUM 53 mg/dL (74-106)
--- NOTE | 2018-11-24 08:00 | NUR ---
RECEIVED PATIENT ALERT/ORIENTED. NO TELE MONITOR. DENIED CHEST PAIN. GENERAL WEAKNESS. BED RESTING. LAB CALLED BLOOD SUGAR 53. ORANGE JUICE 120CC AND ENSURE 1/2 BOTTLE GIVEN. IVF OF NS 40CC/HR. IV SITE TO RFA INTACT. EDEMA 2+ TO BLE. POOR APPETITE. DENIED PAIN. BREATHING SOUND CTA. O2 SAT 98%. NEUTROPENIC ISOLATION. CALL LIGHT IN REACH. BED ALARM ON.
[2018-11-24 08:30] LABS: RED CELL DISTRIBUTION WIDTH 16.2 % (11.5-14.5)
[2018-11-24 09:00] VITALS: BP 106/71
[2018-11-24 12:19] LABS: BAND NEUTROPHIL 6 % (0-10); BASOPHIL 0 % (0-2); MONOCYTE 8 % (0-7); SEGMENTED NEUTROPHILS 76 % (37-75)
[2018-11-24 12:20] LABS: rbc morphology (normal/abnorm) ABNORMAL (NORMAL); tear drop cell (dacryocyte) 1+
[2018-11-24 12:21] LABS: PLATELET MORPHOLOGY PLATELETS DECREASED
[2018-11-24 12:22] LABS: PLATELET COUNT 43 x10^3mcL (130-400)
--- NOTE | 2018-11-24 14:00 | NUR ---
HAD LOOSE BLACK BM TO PAD. COCCYX AREA REDNESS W/ TWO SMALL OPENED WOUND NOTED. CLEANED COCCYX AREA. Z GUARD APPLIED. PHOTO TAKEN.
[2018-11-24 17:56] VITALS: BP 113/74
--- NOTE | 2018-11-24 19:00 | NUR ---
CONDITION STABLE. NO SIGNIFICANT CHANGE. POOR APPETITE. REFUSED HOSPITAL FOOD. MOTHER BROUGHT OUTSIDE FOOD, TOLERATED. NO N/V. HAD MOD AMOUNT BM X1. VOID X4 VIA URINAL 200CC EACH TIME. IVF OF NS 40CC/HR TO RFA. IV PATENT. GENERAL WEAKNESS. MOTHER AT BED SIDE. ENDORSED CARE TO [facility] NURSE.
--- NOTE | 2018-11-24 19:35 | NUR ---
RECEIVED PATIENT IN BED AWAKE WITH NO SIGN OF ACUTE DISTRESS BREATHING EASY AND NONLABOR ON O2 AT 2L VIA NC. EDEMA +3 TO BLE NOTED. IV TO RFA INTACT AND INFUSING WELL. MOTHER AT BEDSIDE. WILL CONTINUE TO MONITOR. CALL LIGHT WITHIN REACH.
[2018-11-24 20:56] VITALS: BP 112/76
--- NOTE | 2018-11-24 23:24 | NUR ---
APPEARS SLEEPING AT THIS TIME WITH EYES CLOSED. NO SIGN OF DSITRESS NOTED.
--- NOTE | 2018-11-25 05:05 | NUR ---
SLEPT FAIRLY HAD BM X1 SOFT IN LARGE AMOUNT, PERICARE GIVEN. CHECKED AT INTERVALS FOR NEEDS AND SAFETY. ALL NEEDS ATTENDED.
[2018-11-25 05:13] VITALS: BP 106/66
[2018-11-25 06:40] LABS: CALCIUM 8.1 mg/dL (8.5-10.1); CARBON DIOXIDE 23.6 mmol/L (21-32); CHLORIDE SERUM 109 mmol/L (98-107); CREATININE SERUM 0.3 mg/dL (0.7-1.3); GFR1 > 60 mL/min; MAGNESIUM 1.8 mg/dL (1.8-2.4); PHOSPHOROUS 2.4 mg/dL (2.5-4.9); POTASSIUM SERUM 3.2 mmol/L (3.5-5.1); SODIUM SERUM 144 mmol/L (136-145)
[2018-11-25 06:51] LABS: GLUCOSE SERUM 52 mg/dL (74-106)
[2018-11-25 07:23] LABS: PLATELET COUNT 52 x10^3mcL (130-400); RED CELL DISTRIBUTION WIDTH 16.4 % (11.5-14.5)
--- NOTE | 2018-11-25 08:00 | NUR ---
SHIFT ASSESSMENT DONE. PATIENT A/A/OX3. BREATHING SOUND CLEAR, BUT DIMINISHED [place] BASES. O2 SAT 94% ON RA. NO SOB. DENIED PAIN. REFUSED HOSPITAL FOOD. MOTHER BROUGHT OUTSIDE FOOD, BUT APPETITE POOR. IV TO RFA INFILTRATED. IV D/C'D. BM/URINE INCONT AT TIMES. GENERAL EDEMA (+); EDEMA BLE 2+. GENERAL WEAKNESS. AIR MATTRESS APPLIED. REDNESS W/ SMALL OPENED WOUND TO COCCYX AREA. Z GUARD APPLIED. WBC 1.5; NEUTROPENIA REVERSED INSOLATION IN PLACE. CALL LIGHT IN REACH.
[2018-11-25 09:06] VITALS: BP 124/70
[2018-11-25 09:39] LABS: BAND NEUTROPHIL 0 % (0-10); SEGMENTED NEUTROPHILS 76 % (37-75)
[2018-11-25 09:40] LABS: ATYPICAL LYMPH 0 %; BASOPHIL 0 % (0-2); BLAST 0 % (0); METAMYELOCTE 0 % (0-2); MONOCYTE 8 % (0-7); MYELOCYTE 0 % (0-2); PROMYELOCYTE 0 % (0-0); rbc morphology (normal/abnorm) ABNORMAL (NORMAL)
--- NOTE | 2018-11-25 11:00 | NUR ---
IV TO RFA INFILTRATED. NEW IV INSERTION X6 ( ANJEL RN, DID X3; JESSICA CROSS X3): UNSUCCESSFUL. ALL GOT BLOOD RETURN, BUT UNABLE TO ADVANCED.
--- NOTE | 2018-11-25 11:30 | NUR ---
SCREEN FOR LOW ROSA MARIA SCALE AT RISK PER PRIMARY RN REQUEST, SKIN ASSESSMENT TO SACRAL COCCYX SKIN INTACT, BLANCHABLE REDNESS , MOTHER AT BEDSIDE POC DISCUSSED AND AGREEABLE. PRESSURE ULCER INJURY PREVENTION INTERVENTIONS IN PLACE. -TURN AND REPOSITION PATIENT Q 2H OFFLOAD LEFT AND RIGHT HIPS -ASSESS AND MONITOR SKIN CONDITION DURING POSITION CHANGE -OFFLOAD BILATERAL HEELS BY PLACING PILLOWS UNDER CALVES AT ALL TIMES, UNLESS OTHERWISE CONTRAINDICATED -PRESSURE REDISTRIBUTION SURFACE THERAPY -KEEP SKIN CLEAN AND DRY AT ALL TIMES.
--- NOTE | 2018-11-25 11:57 | NUR ---
NOTIFIED DR. PASTOR W/ PATIENT'S POTASSIUM LEVEL 3.2; NEW ORDER OF KCL 40 MEQ PO GIVEN.
--- NOTE | 2018-11-25 13:23 | NUR ---
Follow-up Nutrition Assessment: 219/B MICHELLE SHAW HR Dx: Intractable vomiting, End stage AIDS PMHx: HIV (September 2017), AIDS, Asthma Labs: (11/25) K 3.2L, CREAT 0.3L, WBC 1.5L Meds: Albuminar, difulcan, D50%,ferrous sulfate, folic acid, oscal with vit D, Zofran, foscavir Diet: Regular (Neutropenic), (Pt OK to have outside food). PO Intake: (11/25) patient refused breakfast Weights: (11/10) 43 kg Skin: scab to forehead Juan Luis: 17 I/Os: 2385/800 Edema: +3 pitting edema to BLE GI: incontinent of stool Last BM: 11/23 RDN Visit (11/25): Pt looks extremely emaciated and malnourished. Pt said that he ate little breakfast this morning. There are no significant changes since last nutrition assessment. Per progress note (11/24) Day 6 of IV Foscarnet treatment. Will need a total of 4 weeks IV Foscarnet then maintenance PO. Patient and mother refusing hospice at this time. Estimated Nutritional Needs Based on body weight 43.1 kg Energy: 3603-8055 kcal/d (35-40 kcal/kg- weight gain) Protein: 51.7- 64.6 g/d (1.2-1.5 g/kg)- d/t loss of LBM Fluid: 5051-3561 ml/d (1 ml/kcal) or per doctor Nutrition Diagnosis 1.Malnutrition related to AIDS as evidenced by unintentional weight loss of 6# in one week, loss of LBM, BMI 15.4 kg/m2. (ongoing-worsening) Intervention 1. Recommend continuing Neutropenic regular diet with Ensure Enlive BID. Monitor/Evaluate Goal: Have pt meet at least 75% of estimated needs Monitor: PO intake, Labs, GI function F/U in 2-3 days as high risk 11/27-
--- NOTE | 2018-11-25 13:23 | NUR ---
1. Recommend continuing Neutropenic regular diet with Ensure Enlive BID.
--- NOTE | 2018-11-25 15:01 | NUR ---
JESSICA WILCOX ATTEMPTED IV X1, UNSUCCESSFUL. TALKED TO PATIENT'S MOTHER, LET TAY CHARGE NURSE TO DO ONE MORE TIME. PATIENT'S MOTHER REFUSED. SHE WANTED TO OTHER NURSE TO DO IV INSERTION.
--- NOTE | 2018-11-25 16:10 | NUR ---
REPORTED DR. PASTOR THAT PATIENT HAD NO IV ACCESS NOW. 3 RN ATTEMPTED 7 TIMES IV INSERTION, NOT SUCCESSFUL.
[2018-11-25 17:46] VITALS: BP 118/76
--- NOTE | 2018-11-25 19:00 | NUR ---
PATIENT WOULD HAVE PICC LINE INSERTION BY CONTRACTED COMPANY. ENDROSED CARE TO [facility] NURSE.
--- NOTE | 2018-11-25 19:23 | NUR ---
RECEIVED PATIENT AWAKE WITH NO SIGN OF ACUTE DISTRESS, MOTHER AT BEDSIDE. NO IV ACCESS, ATTEMPTED INSERTION MANY TIMES BY AM SHIFT RN ,FOR PICC LINE INSERTION TONIGHT. RESPIRATION EVN AND NONLABOR SATTING AT 98% ON O2 AT 2L VIA NC. MOTHER AT BEDSIDE. WILL CONTINUE TO MONITOR. CALL LIGHT WITHIN REACH.
[2018-11-25 21:13] VITALS: BP 120/72
--- NOTE | 2018-11-25 22:14 | NUR ---
DR COREY SIGNED INFORM CONSENT FOR PICC LINE INSERTION AND TALKED TO PATIENT. ATTEMPTED TO CALL [employer] MESSAGE RE INSERTION OF PICC LINE.
--- NOTE | 2018-11-25 23:12 | NUR ---
PICC LINE INSERTION ONGOING THIS TIME AFTER PATIENT SIGNED CONSENT.
--- NOTE | 2018-11-25 23:46 | NUR ---
PICC LINE INSERTION SUCCESSFULLY DONE AT RIGHT UPPER ARM WITH 2 LUMEN CATH . XRAY DONE FOR CORRECT PLACEMENT.
--- NOTE | 2018-11-26 05:18 | NUR ---
AWAKE MOST OF THE TIME, DENIES PAIN AND DISCOMFORT THE ENTIRE SHIFT. ALL NEEDS ATTENDED. KEPT ON ISOLATION PRECAUTION.
[2018-11-26 06:03] VITALS: BP 116/69
[2018-11-26 06:30] LABS: CALCIUM 7.9 mg/dL (8.5-10.1); CARBON DIOXIDE 23.6 mmol/L (21-32); CHLORIDE SERUM 107 mmol/L (98-107); CREATININE SERUM 0.3 mg/dL (0.7-1.3); GFR1 > 60 mL/min; GLUCOSE SERUM 74 mg/dL (74-106); MAGNESIUM 1.8 mg/dL (1.8-2.4); PHOSPHOROUS 3.1 mg/dL (2.5-4.9); POTASSIUM SERUM 3.3 mmol/L (3.5-5.1); SODIUM SERUM 142 mmol/L (136-145)
--- NOTE | 2018-11-26 08:01 | NUR ---
REPORT RECEIVED. PATIENT AWAKE WITH O2 OFF. DENIES ANY DYSPNEA. ROOM AIR SAT 90%. RR-19. APPLIED O2 NASAL CANNULA AT 2LPM. D5W AT 40CC/HR INFUSING VIA PICC LINE. BED LOW AND LOCKED. CALL DUGAN WITHIN REACH.
[2018-11-26 08:04] LABS: RED CELL DISTRIBUTION WIDTH 16.5 % (11.5-14.5)
[2018-11-26 08:36] VITALS: BP 122/72
[2018-11-26 11:38] LABS: BAND NEUTROPHIL 4 % (0-10); SEGMENTED NEUTROPHILS 88 % (37-75)
[2018-11-26 11:39] LABS: MONOCYTE 2 % (0-7)
[2018-11-26 13:29] VITALS: BP 103/66
--- NOTE | 2018-11-26 13:46 | NUR ---
1 UNIT PRBC STARTED AT 1345 FOR H/H 7.2 AND 21. TYLENOL AND BENADRYL PO GIVEN AND VITALS TAKEN PRIOR TO INITIATION. INSTRUCTED PATIENT TO NOTIFY RN FOR ANY CHILLS, FEVER, SHORTNESS OF BREATH, LOW BACK PAIN. PATIENT STATED UNDERSTANDING.
[2018-11-26 14:49] LABS: rbc morphology (normal/abnorm) ABNORMAL (NORMAL)
[2018-11-26 14:50] LABS: PLATELET COUNT 45 x10^3mcL (130-400)
--- NOTE | 2018-11-26 16:49 | NUR ---
PRBC TRANSFUSION COMPLETE. VSS. NO ADVERSE REACTIONS NOTED
[2018-11-26 17:54] VITALS: BP 106/73
--- NOTE | 2018-11-26 18:20 | NUR ---
PRBC TRANFUSION STARTED PER HOSPITAL PROTOCOL. WITNESS BY JESSICA ORTEGA. TREE. NO DISTRESS NOTED
--- NOTE | 2018-11-26 18:49 | NUR ---
PRBC INFUSING. NO ADVERSE REACTIONS NOTED. WILL ENDORSE TO ONCOMING SHIFT
--- NOTE | 2018-11-26 19:20 | NUR ---
RECEIVED REPORT FROM AM NURSE, PT IN BED WITH MOTHER AT BEDSIDE. AAOX3 WITH FORGETFULNESS AT TIMES, ABLE TO MAKE NEEDS KNOWN. MED SURG, DENIES CP/PRESSURE AT THIS TIME. PALPABLE PULSES TO BLE AND BUE, +3 EDEMA TO BLE NOTED. LUNG SOUNDS CTA, BREATHING EVEN AND UNLABORED ON RA, NO SIGNS OF RESP DISTRESS NOTED. ABD SOFT AND FLAT, ACTIVE BOWEL SOUNDS X4 QUAD. VOIDS FREELY, USES URINAL. GENERALIZED WEAKNESS, CHAIRFAST, ON AIRMATRESS. PICC LINE TO RA PATENT AND INTAC, NO REDNESS OR SWELLING NOTED. NO ACUTE DISTRESS NOTED, BED AT LOWEST POSITION, CALL LIGHT WITHING REACH, WILL CONTINUE TO MONITOR.
--- NOTE | 2018-11-26 21:20 | NUR ---
BLOOD TANSFUSION FINISHED AT THIS TIME, V/S STABLE 97.3, 108/72, 77, 95%. NO ADVERSE REACTION NOTED. PT DENIES CP/PRESSURE, ITCHINESS, OR PAIN. WILL CONTINUE TO MONITOR.
[2018-11-26 21:37] VITALS: BP 108/77
--- NOTE | 2018-11-27 00:46 | NUR ---
PT AWAKE IN BED, BREATHING EVEN AND UNLABORED ON RA, NO SIGNS OF ACUTE DISTRESS NOTED. DENIES ANY PAIN AT THIS TIME. BED AT LOWEST POSTION, CALL LIGHT WITHING REACH. WILL CONTINUE TO MONITOR.
[2018-11-27 05:34] VITALS: BP 122/77
--- NOTE | 2018-11-27 06:01 | NUR ---
PT SLEPT AT INTERVALS THROUGHOUT NIGHT, BREATHING EVEN AND UNLABORED ON RA, REPOSITIONED SELF. NO SIGNS OF ACUTE DISTRESS NOTED, ALL NEEDS ASSESSED AND ATTENDED. FALL PREACAUTIONS IN PLACE. BED AT LOWEST POSITION, CALL LIGHT WITHIN REACH, WILL ENDORSE CARE TO AM NURSE.
[2018-11-27 06:51] LABS: CARBON DIOXIDE 26.1 mmol/L (21-32); CHLORIDE SERUM 106 mmol/L (98-107); CREATININE SERUM 0.3 mg/dL (0.7-1.3); GFR1 > 60 mL/min; MAGNESIUM 1.8 mg/dL (1.8-2.4); PHOSPHOROUS 2.6 mg/dL (2.5-4.9); POTASSIUM SERUM 3.3 mmol/L (3.5-5.1); SODIUM SERUM 141 mmol/L (136-145)
[2018-11-27 07:09] LABS: RED CELL DISTRIBUTION WIDTH 15.8 % (11.5-14.5)
[2018-11-27 07:20] LABS: GLUCOSE SERUM 50 mg/dL (74-106)
--- NOTE | 2018-11-27 07:34 | NUR ---
CRITICAL LABS RECEIVED: WBC 1.3, TRENDING UP. GLUCOSE 50. PT IN NO ACUTE DISTRESS, PT IS ASYMPTOMATIC. JUICE GIVEN, PT TOLERATED WELL. D5W INFUSING WELL TO JESUSITA PICC LINE, SITE WNL. ALL NEEDS MET AND ATTENDED TO, CONTINUITY OF CARE ENDORSE TO AM NURSE, ALL QUESTIONS AND CONCERNS ADDRESSED.
--- NOTE | 2018-11-27 07:49 | NUR ---
RECEIVED HAND OFF REPORT. PATIENT SITTIN UP IN BED ALERT. RN REPORTED CRITICAL VALUE OF 60 BG. GAVE PATIENT ORANGE JUICE AND PATEINT DRANK. BREAKFAST TRAY COMING SOON, ENCOURAGED PATEINT TO EAT BREAKFAST, WILL CONTINUE TO MONITOR AND MAKE SURE PATIENT EATS
--- NOTE | 2018-11-27 08:47 | NUR ---
INCREASED FLOW RATE OF MAINTANCE FLUIDS TP 60ML/H PER ORDER, PATIENT RECEIVING BREATHING TREATMENT A TTHIS TIME. TOLLERATING WELL
[2018-11-27 10:10] VITALS: BP 137/82
--- NOTE | 2018-11-27 10:12 | NUR ---
ADMINISTERED MEDIATIONS PER MAR. PATIENT WAS SITTING UP AND RESPONSIVE IN BED. TURNED PATIENT TO LEFT SIDE. PLACED SCDS ON BLE. ENCOURAGED PATEINT TO EAT, PATIENT DRANKE HALF OF HIS ENSURE AT THIS TIME. CALL LIGHT WITHIN REACH. WILL CONTINUE TO MONITOR
--- NOTE | 2018-11-27 10:25 | NUR ---
PATIENT MOTHER AT BEDSIDE AT THIS TIME
[2018-11-27 10:44] VITALS: BP 137/82
[2018-11-27 11:56] LABS: MONOCYTE 9 % (0-7); SEGMENTED NEUTROPHILS 65 % (37-75)
[2018-11-27 11:57] LABS: BAND NEUTROPHIL 10 % (0-10); BASOPHIL 0 % (0-2); ovalocyte/elliptocyte 1+; rbc morphology (normal/abnorm) ABNORMAL (NORMAL); tear drop cell (dacryocyte) 1+
[2018-11-27 11:58] LABS: PLATELET MORPHOLOGY PLATELETS DECREASED
[2018-11-27 11:59] LABS: PLATELET COUNT 33 x10^3mcL (130-400)
--- NOTE | 2018-11-27 12:15 | NUR ---
ADMINSTERED PO MEDICATIONS PER AUG. IV FOSCAVIR STILL INFUSING AT THIS TIME. PATIENT RESTING WITH MOTHER AT BEDSIDE. CALL LIGHT WITHIN REACH, WILL CONTINUE TO MONITOR
--- NOTE | 2018-11-27 12:44 | NUR ---
STARTED ALBUMIN INFUSION. BROUGHT MEAL TRAY INTO PATIENT. MOTHER AT BEDSIDE
[2018-11-27 17:46] VITALS: BP 109/74
--- NOTE | 2018-11-27 17:55 | NUR ---
ADMINISTERED MEDICATION PER MAR/ PATIENT NOW IN ROOM 201B. NO COMPLAINING OF PAIN. MOTHER AT BEDSIDE
--- NOTE | 2018-11-27 19:45 | NUR ---
RECEIVED PT FROM DAY SHIFT RN. PT AAOX4 DENIES HEADACHE OR DIZZINESS. MEDSURG PT DENIES CHEST PAIN. BREATHING EVEN AND UNLABORED ON NC 2L/MIN, NO SOB NOTED BLE EDEMA NOTED, PT REFUSED TO ELEVATE FEET. ABD SOFT AND ROUND, ACTIVE BOWEL SOUNDS, DENIES ABD PAIN/N/V GENERALIZED WEAKNESS NOTED. OPTIFOAM ON BUTTOCKS, CDI. PICC LINE TO RIGHT ARM, INFUSING WELL. PT DENIES ANY DISTRESS. CALL BUTTON WITHIN REACH. SAFETY PRECAUTIONS IN PLACE. NEUTROPENIC PRECAUTIONS. MOTHER AT BEDSIDE. WILL CONTINUE TO MONITOR.
[2018-11-27 21:22] VITALS: BP 117/70
--- NOTE | 2018-11-27 22:18 | NUR ---
PT AWAKE, DENIES ANY PAIN. NO SIGNS OF ACUTE DISTRESS NOTED. IV FLUIDS INFUSING WELL. CALL BUTTON WITHIN REACH. MOTHER AT BEDSIDE. SAFETY PRECAUTIONS IN PLACE. WILL CONTINUE TO MONITOR.
--- NOTE | 2018-11-28 01:46 | NUR ---
PT RESTING, BREATHING EVEN AND UNLABORED NO SIGNS OF DISTRESS NOTED. IV FLUIDS INFUSING WELL. CALL BUTTON WITHIN REACH. SAFETY PRECAUTIONS IN PLACE. MOTHER AT BEDSIDE. WILL CONTINUE TO MONITOR.
--- NOTE | 2018-11-28 02:48 | NUR ---
PT RESTING, BREATHING EVEN AND UNLABORED WITH NO SOB NOTED. CALL BUTTON WITHIN REACH. SAFETY PRECAUTIONS IN PLACE. WILL CONTINUE TO MONITOR.
--- NOTE | 2018-11-28 05:30 | NUR ---
PT SLEPT ON AND OFF THROUGHOUT THE NIGHT WITH NO SIGNS OF DISTRESS NOTED. BREATHING EVEN AND UNLABORED ON NC 2L/MIN. IV FLUIDS INFUSING WELL. MEDICATED PER EMAR. PT DENIES ANY PAIN OR DISCOMFORT. PT TURN AND REPOSITION NEEDED. PT REFUSED TO ELEVATE FEET ON A PILLOW. CALL BUTTON WITHIN REACH. SAFETY PRECAUTIONS IN PLACE. NEUTROPENIC PRECAUTIONS. WILL CONTINUE TO MONITOR AND ENDORSE CARE TO DAY SHIFT RN.
[2018-11-28 05:47] VITALS: BP 113/76
--- NOTE | 2018-11-28 07:20 | NUR ---
PT RESTING, BREATHING EVEN AND UNLABORED WITH NO SOB NOTED. SAFETY PRECAUTIONS IN PLACE. ENDORSED CARE TO DAY SHIFT RN, ALL QUESTIONS ADDRESSED.
[2018-11-28 07:33] LABS: CALCIUM 8.4 mg/dL (8.5-10.1); CHLORIDE SERUM 105 mmol/L (98-107); CREATININE SERUM 0.3 mg/dL (0.7-1.3); GFR1 > 60 mL/min; GLUCOSE SERUM 79 mg/dL (74-106); MAGNESIUM 1.9 mg/dL (1.8-2.4); PHOSPHOROUS 2.2 mg/dL (2.5-4.9); SODIUM SERUM 140 mmol/L (136-145)
[2018-11-28 07:36] LABS: POTASSIUM SERUM 2.9 mmol/L (3.5-5.1)
[2018-11-28 07:37] LABS: RED CELL DISTRIBUTION WIDTH 15.8 % (11.5-14.5)
--- NOTE | 2018-11-28 08:00 | NUR ---
PATIENT RECEIVED RESTING QUIETLY IN BED. PATIENT DENIES AND ACUTE PAIN AT THIS TIME AND IS VERY LEAN AND LUNGS ARE DIMINISHED BUT PATIENT DOES NOT APPEAR IN ANY RESPIRATORY DISTRESS. IV INTACT AND PATIENT HAS BEEN RECEIVING IV FLUIDS INDICATED. PATIENT HAS LOW POTASSIUM AND HIS WBCS CONTINUED LOW. PATIENT HAS BEEN IN NEUTRAPENIC PRECAUTIONS AND A K RIDER ORDERED BU NOT AVAILABLE IN THE [facility] AT THIS TIME. WILL HANG WHEN AVAILABLE. PATIENT HAS BEEN ON INTRAVIA AND NO ADVERSE REACTION AND DOSES OF ALBUMIN AND MULTIPLE SUPPLIMENTS INDICATED. PATIENT DOES LOOK BETTER THAN TWO WEEKS AGAO HIS FEATURES ARE NOT SULLEN AND HE DOES NOT LOOK GAUNT. PATIENT HAS CONTINUE SWELLING TO THE LOWER EXTREMTIES AND OF 2 PLUS BILATERALLY. PATIENT AHS BEEN AWAKE AND EATTING AND ENCOURAGE INTAKE INDICATED. NO COMPLAINTS OF PAIN AT THIS TIME.
[2018-11-28 09:25] VITALS: BP 107/65
[2018-11-28 11:55] LABS: BAND NEUTROPHIL 4 % (0-10); PLATELET MORPHOLOGY PLATELETS DECREASED; SEGMENTED NEUTROPHILS 88 % (37-75)
[2018-11-28 11:56] LABS: rbc morphology (normal/abnorm) ABNORMAL (NORMAL)
--- NOTE | 2018-11-28 11:56 | NUR ---
1. Recommend continuing Neutropenic regular diet with Ensure Enlive BID.
--- NOTE | 2018-11-28 11:56 | NUR ---
Follow-up Nutrition Assessment: 219/B MICHELLE SHAW HR Dx: Intractable vomiting, End stage AIDS PMHx: HIV (September 2017), AIDS, Asthma Labs: (11/28) K 2.9L, CREAT 0.3L, WBC 1.5L Meds: Albuminar, difulcan, D10%, ferrous sulfate, folic acid, megace, oscal, Zofran, foscavir Diet: Regular (Neutropenic), (Pt OK to have outside food). PO Intake: (11/27) 0% Weights: (11/10) 43 kg Skin: Optifoam to buttocks Juan Luis: 15 I/Os: 2800/1150 Edema: edema to BLE GI: denies abd pain/N/V Last BM: 11/26 RDN Visit (11/28): Pt looks extremely emaciated and malnourished. Pt said that he ate some cake and sausage for breakfast this morning. Patient said that he has been drinking Ensure ONS. There are no significant changes since last nutrition assessment. Patient is awaiting SNF placement. Estimated Nutritional Needs Based on body weight 43.1 kg Energy: 2232-7120 kcal/d (35-40 kcal/kg- weight gain) Protein: 51.7- 64.6 g/d (1.2-1.5 g/kg)- d/t loss of LBM Fluid: 6898-7494 ml/d (1 ml/kcal) or per doctor Nutrition Diagnosis 1.Malnutrition related to AIDS as evidenced by unintentional weight loss of 6# in one week, loss of LBM, BMI 15.4 kg/m2. (ongoing-worsening) Intervention 1. Recommend continuing Neutropenic regular diet with Ensure Enlive BID. Monitor/Evaluate Goal: Have pt meet at least 75% of estimated needs Monitor: PO intake, Labs, GI function F/U in 3-5 days as moderate risk
[2018-11-28 12:01] LABS: PLATELET COUNT 28 x10^3mcL (130-400)
--- NOTE | 2018-11-28 13:15 | NUR ---
PATIENT IS EATTING FOOD FROM HOME WELL FOOD OFFERED AT THE HOPITAL. DENIES NAUASEA AND HAS FAMILY VISITING AND VERY SUPPORTIVE WITH CARE.
--- NOTE | 2018-11-28 14:21 | NUR ---
RECEIVED ENDORSEMENT FROM JESSICA BROWN.
--- NOTE | 2018-11-28 15:13 | NUR ---
PT IN BED, WATCHING TV, MOTHER BY BEDSIDE. NO CHEST PAIN, DISCOMFORT, OR RESPIRATORY DISTRESS NOTED. WILL CONTINUE TO MONITOR.
[2018-11-28 17:01] VITALS: BP 113/77
--- NOTE | 2018-11-28 17:10 | NUR ---
PT IN BED, WATCHING THE NEWS W/ MOTHER BY BEDSIDE. PT REMAINS A/A/O X 4, CALM, COOPERATIVE. NO CHEST PAIN, DISCOMFORT, OR RESPIRATORY DISTRESS NOTED. SIDE RAILS UP X 2, BED IN LOW POSITION. WILL ENDORSE TO NOC SHIFT.
--- NOTE | 2018-11-28 19:37 | NUR ---
ENDORSED PT TO JESSICA WHALEN.
--- NOTE | 2018-11-28 20:10 | NUR ---
Awake and verbally responsive. No respiratory distress noted on 02 2lpm via n/c. Denies pain. Denies n/v. On neutropenic isolation. Mother at the bedside. Will cont.to monitor. Call light within reach.
[2018-11-28 21:23] VITALS: BP 118/79
[2018-11-29 04:19] VITALS: BP 110/71
--- NOTE | 2018-11-29 04:21 | NUR ---
Afebrile. No significant change in condition noted. Remained on neutropenic isolation, proper use of PPE and good hand hygiene observed. Denies pain. Mother present. Cont.on current care plan. Pending placement.
[2018-11-29 06:42] LABS: CALCIUM 8.3 mg/dL (8.5-10.1); CARBON DIOXIDE 26.3 mmol/L (21-32); CHLORIDE SERUM 106 mmol/L (98-107); CREATININE SERUM 0.3 mg/dL (0.7-1.3); GFR1 > 60 mL/min; GLUCOSE SERUM 67 mg/dL (74-106); MAGNESIUM 1.8 mg/dL (1.8-2.4); PHOSPHOROUS 2.6 mg/dL (2.5-4.9); SODIUM SERUM 143 mmol/L (136-145)
[2018-11-29 07:16] LABS: PLATELET COUNT 33 x10^3mcL (130-400); RED CELL DISTRIBUTION WIDTH 15.8 % (11.5-14.5)
--- NOTE | 2018-11-29 08:00 | NUR ---
PATIENT RECEIVED AWAKE AND ORIENED TIMES FOUR. PATIENT HAS BEEN TOLERATING DIET AND EATTING HOME FOOD WELL SOME OF THE DIETARY OFFERINGS. PATIETN HAS DIMINSHED BREATH SOUNDS AND NO COUGH AT THIS TIME. THE EDEMA TO THE LOWER EXLTREMIES IS LESS BUT STILL PRESENT FROM THE CALF DOWN TO THE TOES BILATERAL. BOWEL SOUNDS ACTIVE. AND PATIENT HAS OPITFOAM TO THE SACRAL AREA. FLUIDS TOLERATED AND PATIENT HAS BEEN IN ISOLATION FOR NEUTRAPENIC PRECAUTIONS [facility] WBC AT 1.4 TODAY. PATIENT HAS POTASSIUM AT 3.0 AND HAS BEEN CHONIC LOW READINGS. HAD RECEIVED K RIDER YESTERDAY AND ALSO PO POTASSIUM AND REMAINS LOW. PATIENT ON BEDREST AND WITH GENERAL WEAKNESS AND IS ABLE TO URINATE IN THE URINAL AND TO FEED HIMSELF. VITALS ARE STABLE AND TOOK ALL MEDICATIONS ORDERED. NO ADVERSE REACTION NOTED FORM THE IV MEDICATION REPORTED.
[2018-11-29 09:53] VITALS: BP 117/82
--- NOTE | 2018-11-29 10:00 | NUR ---
TOOK IN PART OF THE FOOD BROUGHT IN TO HIM BY FAMILY. PATIENT HAS BEEN SLEEPING ON AND OFF. DENIES ANY RESPIRATORY DISTRESS AT THIS TIME.
[2018-11-29 10:56] LABS: BAND NEUTROPHIL 9 % (0-10); BASOPHIL 0 % (0-2); MONOCYTE 8 % (0-7); SEGMENTED NEUTROPHILS 70 % (37-75)
[2018-11-29 10:57] LABS: PLATELET MORPHOLOGY PLATELETS DECREASED; ovalocyte/elliptocyte 1+; rbc morphology (normal/abnorm) ABNORMAL (NORMAL)
[2018-11-29 10:58] LABS: tear drop cell (dacryocyte) 1+
--- NOTE | 2018-11-29 13:00 | NUR ---
PATIENT HAD A LOOSE STOOL AND JD CARE WAS GIVEN. WILL CONTINUE TO MONITOR
--- NOTE | 2018-11-29 16:26 | NUR ---
HAD ANOTHER LOOSE STOOL. JD CARE WAS GIVEN. PATIENT TOLERAT THE IV ANTIBIOTICS AND THE ALBUMIN. PATIENT HAS BEEN EATTING FOOD BROUGHT IN TO HIM BUT STILL MINIMAL INTAKE OF CALORIES. DENIES PAIN AND WITH SOME DIMINISHED BREATH SOUNDS BUT DENIES RESPIRATORY DISTRESS.
[2018-11-29 18:48] VITALS: BP 121/75
--- NOTE | 2018-11-29 19:50 | NUR ---
RECEIVED REPORT FROM DAY SHIFT RN. PT RESTING IN BED. AA&O X4. NO SOB ON O2 2L VIA NC. NO C/O PAIN AT THIS TIME. PICC LINE TO JESUSITA, INTACT. SAFETY MEASURES IN PLACE. BED IN LOWEST POSITION. SIDE RAILS UP X2. INSTRUCTED PT TO USE THE CALL LIGHT FOR ASSISTANCE. CALL LIGHT WITHIN REACH. MOTHER AT BEDSIDE.
[2018-11-29 21:08] VITALS: BP 110/72
[2018-11-30 05:40] VITALS: BP 113/75
[2018-11-30 06:40] LABS: CALCIUM 8.2 mg/dL (8.5-10.1); CARBON DIOXIDE 27.5 mmol/L (21-32); CHLORIDE SERUM 106 mmol/L (98-107); CREATININE SERUM 0.3 mg/dL (0.7-1.3); GFR1 > 60 mL/min; GLUCOSE SERUM 92 mg/dL (74-106); MAGNESIUM 1.9 mg/dL (1.8-2.4); PHOSPHOROUS 2.5 mg/dL (2.5-4.9); SODIUM SERUM 142 mmol/L (136-145)
[2018-11-30 06:58] LABS: POTASSIUM SERUM 2.1 mmol/L (3.5-5.1)
[2018-11-30 07:20] LABS: PLATELET COUNT 32 x10^3mcL (130-400); RED CELL DISTRIBUTION WIDTH 15.7 % (11.5-14.5)
--- NOTE | 2018-11-30 08:00 | NUR ---
RECIEVED PATIENT WHO HAD JUST AISSATOU A LOOSE BM AND THAT IS A TOTAL OF THREE PER MACHINE BILLER HE HAD TWO LAST NIGHT. PATIENT WAS GIVEN JD CARE BY THE MEDIA RELATIONS DIRECTOR AND IS COMFORTABLE AND DENIES ANY PAIN AT THIS TME THE RT WAS WITH THE PATIEN TND GAVE A TREATMENT AND ADVISED SHE INCREASED HIS 02 AND HE WAS A LITTLE SOB. NOTED THE PATIEN THAS LOW H ANDH AND TO BE RECEIVING A TRANSFUSION TODAY WELL TWO K RIDERS AND PO POTASSIUM WELL ALBUMIN REGULARLY ORDERED. PATIENT REMAINS WITH NEUTROPENIC PRECAUTIONS AND THE LAST WBC AT 1.2 AND DOWN FROM YESTERDAY AT 1.4. THE H AND H AT 6.8/20 AT THSI TIME. THE POTASSIUM HAS BEEN CHRONICALLY LOW AT 2.9. PAIENT HAS EDEMA CONTINUED TO THE LOWER EXTREMITES OF 2 PLUS AND PATIENT HAS BEEN WTIH SOME IMPROVEMENT OVER A PERIOD OF TIME AND THE EDEMA IS ABOUT 4 INCHES BELOW THE KNEES AND TO THE FEET AND TOES. WITH GENERAL WEAKNESS AND ASSISTED WITH ALL ADLS. HE HAS BEEN ABLE TO FEED HIMSELF AND GETS FOOD FROM HOME OR THE OUTSIDE. PATIENT HAS BEEN ABLE TO VOID IN THE URINAL AND THE URINE IS FABIOLA. HE HAS BEEN CONTINUED ON THE IV ANTIBIOTICS AND NO ADVERSE REACTION AT THIS TIME.
[2018-11-30 09:00] VITALS: BP 114/74
[2018-11-30 10:23] LABS: BAND NEUTROPHIL 10 % (0-10); BASOPHIL 0 % (0-2); MONOCYTE 10 % (0-7)
[2018-11-30 10:24] LABS: SEGMENTED NEUTROPHILS 68 % (37-75)
[2018-11-30 10:25] LABS: PLATELET MORPHOLOGY PLATELETS DECREASED; ovalocyte/elliptocyte 1+; rbc morphology (normal/abnorm) ABNORMAL (NORMAL); tear drop cell (dacryocyte) 1+
--- NOTE | 2018-11-30 12:26 | NUR ---
PATIENTS FAMILY BROUGHT IN FOOD FOR THE PATIEN TONEY IS EATTING AT THIS TIME. PATIENT DENIES ANY DISTRESS.
--- NOTE | 2018-11-30 12:54 | NUR ---
PATIENT COMPLAINTS OF BLOODY NOSE AND PATIENT HAS NOTED BEEN EATTING AT THIS TIME. PATINE THAS NOT PROFUSE AND CHECKED THE PT AND MILDLY ELEVATED. PATIENT OFFERED TISSUE WASH CLOTH AND AN ICE PACK. THE BLEEDING HAS APPEARED STOPPED ALREADY. BLOOD BANK CALLED AND THE BLOOD IS READY FOR TRANSFUSION. WILL GIVE THE DOSING OF ALBUMIN AND THEN START THE BLOOD INDICATED.
--- NOTE | 2018-11-30 12:57 | NUR ---
K RIDERS COMPLETED AND TOLERATED WELL SO FAR. RAN THE FOSCARRET AND TOLERATED WELL.
--- NOTE | 2018-11-30 14:17 | NUR ---
GAVE TYLENOL, BENADRYL ORDERED FOR PRIOR TRANSFUSION. WILL GIVE THE LASIX ORDERED POST THE INFUSION. PATIENT FOR CBC POST INFUSION WELL. TOLERATED THE K RIDER TIMES TWO AND THE ALBUMIN RUNNING AT THIS ITME RECEIVED HIS FOSCARRET AND TOLERATED WELL. THE PICC LINE IS PATENT AND FLUSHES EASILY.
[2018-11-30 16:00] VITALS: BP 114/74
--- NOTE | 2018-11-30 16:23 | NUR ---
STARTED THE FIRST UNIT OF BLOOD AND POST FIFTEEN AND TOELRAET DWELL SO FAR. WILL CONTINUE AND WITH NEXT PENDING THIS BAG. PATIENT RESTING AT THSI TIME AND DNEI SANY SYMPTOMS. VITAL WITH SOME ELEVATION ON THE TEMPERATUR AT 99.4 AND NOW 100.1. TYLENOL AND BENDARYL GIVEN ORDERED. WILL FOLLOW UP WITH LASIX INDICATED.
[2018-11-30 17:30] VITALS: BP 110/74
--- NOTE | 2018-11-30 18:01 | NUR ---
COMPLETED THE FIRST UNIT AND NO ADVERSE REACTION NOTED. PATIENT HAS BEEN SITTING UP AND EATTING OUTSIDE FOODS. NO COMPLAINTS OF PAIN AT THIS TIME.
--- NOTE | 2018-11-30 18:54 | NUR ---
STARTED THE SECOND UNIT OF BLOOD AND TOLERATED THE FIRST WITHOUT PROBLEMS PATIENT HAS VITALS AT THIS TIME AT 98.7, 86, 109/75, 95% ON 02 VIA NASAL CANNULA.
--- NOTE | 2018-11-30 19:40 | NUR ---
RECEIVED REPORT FROM DAY SHIFT RN. PT RESTING IN BED. BREATHING EVEN AND UNLABORED ON O2 3L VIA NC. NO C/O PAIN. NO DISTRESS NOTED. PICC LINE TO JESUSITA, BLOOD TRANSFUSION IN PROGRESS. SAFETY MEASURES IN PLACE. BED IN LOWEST POSITION. SIDE RAILS UP X2. INSTRUCTED TO CALL IF ASSISTANCE IS NEEDED. CALL LIGHT WITHIN REACH. MOTHER AT BEDSIDE.
--- NOTE | 2018-11-30 20:30 | NUR ---
PT C/O NOSEBLEED. WASH CLOTH AND ICE PACK GIVEN.
--- NOTE | 2018-11-30 20:35 | NUR ---
NOSE BLEED STOPPED. O2 3L VIA NC WITH HUMIDIFIER IN PLACE.
[2018-11-30 20:44] VITALS: BP 119/85
[2018-11-30 21:00] VITALS: BP 100/71
--- NOTE | 2018-11-30 21:00 | NUR ---
2ND UNIT OF BLOOD TRANSFUSION COMPLETED. BP 100/71 MAP 80, HR 82, RR 20, TEMP 98.2, O2 SAT 93% ON O2 3L VIA NC. NO ADVERSE REACTION. NO DISTRESS NOTED. LAB DRAW ORDERED.
[2018-11-30 22:00] LABS: PLATELET COUNT 21 x10^3mcL (130-400); RED CELL DISTRIBUTION WIDTH 14.8 % (11.5-14.5)
[2018-11-30 22:46] LABS: BAND NEUTROPHIL 7 % (0-10); MONOCYTE 7 % (0-7); PLATELET MORPHOLOGY PLATELETS DECREASED; SEGMENTED NEUTROPHILS 72 % (37-75); rbc morphology (normal/abnorm) ABNORMAL (NORMAL); tear drop cell (dacryocyte) 1+
--- NOTE | 2018-12-01 | NUR ---
PT RESTING WITH EYES CLOSED. NO SOB ON O2 3L VIA NC. NO DISTRESS NOTED. CALL LIGHT WITHIN REACH. MOTHER AT BEDSIDE.
[2018-12-01 05:38] VITALS: BP 115/71
[2018-12-01 06:44] LABS: CALCIUM 8.2 mg/dL (8.5-10.1); CARBON DIOXIDE 26.5 mmol/L (21-32); CHLORIDE SERUM 106 mmol/L (98-107); CREATININE SERUM 0.3 mg/dL (0.7-1.3); GFR1 > 60 mL/min; GLUCOSE SERUM 105 mg/dL (74-106); MAGNESIUM 1.7 mg/dL (1.8-2.4); PHOSPHOROUS 1.8 mg/dL (2.5-4.9); SODIUM SERUM 145 mmol/L (136-145)
--- NOTE | 2018-12-01 07:00 | NUR ---
PT SLEPT AT INTERVALS THROUGHOUT SHIFT. NO SOB ON O2 3L VIA NC WITH HUMIDIFIER. NO C/O PAIN. SAFETY MEASURES MAINTAINED. ALL NEEDS ATTENDED TO. ENCOURAGED AND ASSISTED PT WITH REPOSITIONING. CALL LIGHT WITHIN REACH. WILL ENDORSE CONTINUITY OF CARE TO ONCOMING RN.
[2018-12-01 07:27] LABS: POTASSIUM SERUM 2.2 mmol/L (3.5-5.1)
--- NOTE | 2018-12-01 07:40 | NUR ---
RECEIVED PT FROM MAINTENANCE EQUIPMENT OPERATOR RN. Nikunj/CLAU. MED SURG. DENIES CHEST PAIN/PRESSURE. RESPIRATIONS EQUAL AND UNLABORED ON 2L NC HUMIDIFIED O2. NO ACUTE RESP DISTRESS NOTED. JESUSITA DOUBLE LUMEN PICC PATENT AND INFUSING. NO REDNESS OR SWELLING NOTED. PT DENIES ANY PAIN AT THIS TIME. OPTIFOAM DRESSING TO BUTTOCKS CDI. WILL CONTINUE TO MONITOR. CALL LIGHT IN REACH. BED IN LOWEST POSITION.
--- NOTE | 2018-12-01 07:53 | NUR ---
PAGED DR. PASTOR REGARDING CRITICAL VALUE POTASSIUM OF 2.2. AWAITING CALL BACK.
--- NOTE | 2018-12-01 09:33 | NUR ---
PT SITTING UP IN BED. NO ACUTE RESP DISTRESS NOTED ON 2L NC HUMIDIFIED O2. PT DENIES ANY PAIN AT THIS TIME. GIVEN PO MEDS. TOLERATED WELL. IV PATENT AND INFUSING TO JESUSITA PICC DOUBLE LUMEN CATHETER. WILL CONTINUE TO MONITOR. CALL LIGHT IN REACH. BED IN LOWEST POSITION.
[2018-12-01 10:39] VITALS: BP 122/80
[2018-12-01 14:55] LABS: rbc morphology (normal/abnorm) ABNORMAL (NORMAL)
[2018-12-01 16:47] LABS: BASOPHIL 0 % (0-2)
[2018-12-01 16:48] LABS: PLATELET MORPHOLOGY PLATELETS DECREASED; SEGMENTED NEUTROPHILS 96 % (37-75)
[2018-12-01 16:53] LABS: PLATELET COUNT 27 x10^3mcL (130-400)
[2018-12-01 17:28] VITALS: BP 124/84
--- NOTE | 2018-12-01 19:25 | NUR ---
PT RECEIVED A/O X4, ABLE TO MAKE NEEDS KNOWN. MOTHER AT BEDSIDE. MED-SURG, DENIES ANY CP/PRESSURE. PULSES PALPABLE, PITTING EDEMA TO BLE. BREATHING IS EVEN AND UNLABORED ON 2L NC WITH HUMIDIFIER, PT DENIES ANY SOB, NO RESP DISTRESS NOTED. ABD SOFT AND NONDISTENDED, DENIES ANY N/V. VOIDS FREELY, URINAL AT BEDSIDE. GENERALIZED WEAKNESS, ON AIR MATTRESS. SMALL OPEN WOUND NOTED TO COCCYX, ZGUARD AND OPTIFOAM PLACED, PT REPOSITIONED. SMALL ABRASION NOTED TO FOREHEAD, VJ. PT DENIES HAVING ANY PAIN AT THIS TIME.IVF INFUSING WELL TO JESUSITA PICC LINE, DOUBLE LUMEN, PORTS PATENT, SITE WNL, DRSG CDI. BED IN LOWEST SETTING, SIDE RAILS UP X2, CALL LIGHT WITHIN REACH. NO ACUTE DISTRESS NOTED. CALL LIGHT WITHIN REACH. WILL CONT TO MONITOR.
[2018-12-01 20:55] VITALS: BP 112/66
--- NOTE | 2018-12-01 21:43 | NUR ---
PT AWAKE AND ALERT. BREATHING EVEN AND UNLABORED, NO RESP DISTRESS NOTED. PT DENIES HAVING ANY PAIN AT THIS TIME. PT CLEANED AND REPOSITIONED. IVF INFUSING WELL, SITE WNL. NO ACUTE DISTRESS NOTED. MOTHER AT BEDSIDE. CALL LIGHT WITHIN REACH. WILL CONT TO MONITOR.
--- NOTE | 2018-12-02 00:13 | NUR ---
PT RESTING IN BED WITH EYES CLOSED, BUT IS EASILY AROUSABLE. BREATHING IS EVEN AND UNLABORED, NO RESP DISTRESS NOTED. OFFERED TO REPOSITION PT, PT REFUSED, PT STATES, "I JUST WANT TO SLEEP." EDUCATED PT ON IMPORTANCE OF TURNING AND REPOSITIONING TO PREVENT SKIN BREAKDOWN, PT VERBALIZED UNDERSTANDING BUT CONT TO REFUSED, PT STATES, "I'M FINE, I'M ALREADY COMFORTABLE." N OACAUTE DISTRESS NOTED. CALL LIGHT WITHIN REACH. WILL CONT TO MONITOR.
[2018-12-02 05:28] VITALS: BP 116/79
--- NOTE | 2018-12-02 06:21 | NUR ---
PT SLEPT AT INTERVALS THROUGHOUT THE EVENING. BREATHING IS EVEN AND UNLABORED, NO RESP DISTRESS NOTED. PT DENIES HAVING ANY PAIN AT THIS TIME. CHG WIPES GIVEN. OFFERED TO REPOSITION PT, PT REFUSED, PT STATES, "NO, I'M OKAY, I'M FINE LIKE THIS." REINFORCED TEACHING OF REPOSITIONING AND SKIN BREAK DOWN, PT VERBALIZED UNDERSTANDING, BUT CONT TO REFUSE AT THIS TIME. IVF INFUSING WELL TO JESUSITA PICC LINE, DOUBLE LUMEN, PATENT AND INTACT, SITE WNL. NO ACUTE CHANGES ENCOUNTERED DURING SHIFT. ALL NEEDS MET AND ANTICIPATED. CALL LIGHT WITHIN REACH. WILL ENDORSE CARE TO AM NURSE.
[2018-12-02 06:50] LABS: CALCIUM 8.2 mg/dL (8.5-10.1); CARBON DIOXIDE 31.1 mmol/L (21-32); CHLORIDE SERUM 102 mmol/L (98-107); CREATININE SERUM 0.3 mg/dL (0.7-1.3); GFR1 > 60 mL/min; GLUCOSE SERUM 202 mg/dL (74-106); MAGNESIUM 1.5 mg/dL (1.8-2.4); PHOSPHOROUS 1.5 mg/dL (2.5-4.9); SODIUM SERUM 138 mmol/L (136-145)
[2018-12-02 07:02] LABS: ALBUMIN 3.3 g/dL (3.4-5.0); POTASSIUM SERUM 2.8 mmol/L (3.5-5.1)
[2018-12-02 07:10] VITALS: BP 112/79
[2018-12-02 07:12] LABS: RED CELL DISTRIBUTION WIDTH 15.2 % (11.5-14.5)
--- NOTE | 2018-12-02 07:39 | NUR ---
RECEIVED PATIENT FROM JESSICA FLAHERTY. PATIENT IN BED RESTING. NO COMPLAINTS AT THIS TIME. LAB CALLED IN CRITICAL VALUES FOR POTASSIUM & WBCs, DR PASTOR AWARE. WILL ADMINISTER SUPPLEMENTATIONS VIA IV. CALL LIGHT IN REACH AT THIS TIME.
--- NOTE | 2018-12-02 10:30 | NUR ---
PATIENT RESTING IN BED. DR PASTOR AND TEAM IN TO SPEAK WITH PATIENT AND FAMILY. STATES THAT PATIENT MIGHT HAVE TO STAY FOR UP TO 2 WEEKS D/T SPECIFIC MEDICATION TREATMENT THAT MUST BE PROVIDED ON INPATIENT BASIS. MOTHER STATES UNDERSTANDING. CALL LIGHT IN REACH AT THIS TIME.
[2018-12-02 11:57] LABS: BAND NEUTROPHIL 2 % (0-10); MONOCYTE 4 % (0-7); SEGMENTED NEUTROPHILS 80 % (37-75)
[2018-12-02 11:58] LABS: rbc morphology (normal/abnorm) ABNORMAL (NORMAL)
--- NOTE | 2018-12-02 11:58 | NUR ---
Follow-up Nutrition Assessment: /B MICHELLE SHAW MR Dx: Intractable vomiting, End stage AIDS PMHx: HIV (September 2017), AIDS, Asthma Labs: (12/02) K 2.8L, CREAT 0.3L, WBC 1.1L, BG 202H Meds: Albuminar, D10%, ferrous sulfate, folic acid, megace, oscal, Zofran, foscavir Diet: Regular (Neutropenic), (Pt OK to have outside food). PO Intake: (12/01) 25% Weights: (11/10) 43 kg Skin: Optifoam to buttocks, open wound noted Juan Luis: 15 I/Os: 2800/1150 Edema: pitting edema to BLE GI: denies abd pain/N/V Last BM: 12/01 RDN Visit (12/02): Pt looks extremely emaciated and malnourished. Pt said that he ate pancakes for breakfast this morning and drank Ensure ONS. There are no significant changes since last nutrition assessment. Patient is awaiting SNF placement. Patient does not have any N/V/D/C at this time. Estimated Nutritional Needs Based on body weight 43.1 kg Energy: 7460-9945 kcal/d (35-40 kcal/kg- weight gain) Protein: 51.7- 64.6 g/d (1.2-1.5 g/kg)- d/t loss of LBM Fluid: 2833-5172 ml/d (1 ml/kcal) or per doctor Nutrition Diagnosis 1.Malnutrition related to AIDS as evidenced by unintentional weight loss of 6# in one week, loss of LBM, BMI 15.4 kg/m2. (ongoing) Intervention 1. Recommend continuing Neutropenic regular diet with Ensure Enlive BID. Monitor/Evaluate Goal: Have pt meet at least 75% of estimated needs Monitor: PO intake, Labs, GI function F/U in 7 days as low risk 12/09
[2018-12-02 11:59] LABS: PLATELET MORPHOLOGY PLATELETS DECREASED
--- NOTE | 2018-12-02 11:59 | NUR ---
1. Recommend continuing Neutropenic regular diet with Ensure Enlive BID.
[2018-12-02 12:17] LABS: PLATELET COUNT 24 x10^3mcL (130-400)
[2018-12-02 16:55] VITALS: BP 123/87
--- NOTE | 2018-12-02 18:40 | NUR ---
PATIENT IN BED WATCHING TELEVISION. MOTHER AT BEDSIDE. NO COMPLAINTS AT THIS TIME, DENIES ANY PAIN OR SOB. WILL ENDORSE TO ONCOMING NURSE. OPTIFORM ON COCCYX CHANGED, NOW CDI. TOLERATED ALL FLUIDS AND IVPB MEDICATIONS TODAY. CALL LIGHT IN REACH AT THIS TIME.
--- NOTE | 2018-12-02 19:06 | NUR ---
PT RECEIVED A/O X4, ABLE TO MAKE NEEDS KNOWN. MED-SURG, DENIES ANY CP/PRESSURE. PULSES PALPABLE, TRACE EDEMA TO BLE. BREATHING IS EVEN AND UNLABORED ON 2L NC WITH HUMIDIFIER, PT DENIES ANY SOB, NO RESP DISTRESS NOTED. ABD SOFT AND NONDISTENDED, DENIES ANY N/V. VOIDS FREELY, URINAL AT BEDSIDE. GENERALIZED WEAKNESS, ON AIR MATTRESS. SMALL OPEN WOUND NOTED TO COCCYX, ZGUARD AND OPTIFOAM PLACED, PT TURNED AND REPOSITIONED. SMALL ABRASION NOTED TO FOREHEAD, ANIMAL COP. PT DENIES HAVING ANY PAIN AT THIS TIME.IVF IVF INFUSING WELL TO DOUBLE LUMEN PICC LINE TO JESUSITA, PORTS PATENT, SITE WNL, DRSG CDI. BED IN LOWEST SETTING, SIDE RAILS UP X2, CALL LIGHT WITHIN REACH. NO ACUTE DISTRESS NOTED. CALL LIGHT WITHIN REACH. WILL CONT TO MONITOR.
[2018-12-02 20:50] VITALS: BP 122/84
--- NOTE | 2018-12-03 02:33 | NUR ---
PT C/O MODERATE BACK PAIN, PRN TYLENOL GIVEN ORDERED. PT INCONTINENT OF URINE, PT CLEANED AND REPOSITIONED. NO ACUTE DISTRESS NOTED. CALL LIGHT WITHIN REACH. WILL CONT TO MONITOR.
[2018-12-03 05:42] VITALS: BP 114/76
[2018-12-03 06:19] LABS: CALCIUM 7.9 mg/dL (8.5-10.1); CARBON DIOXIDE 25.9 mmol/L (21-32); CHLORIDE SERUM 107 mmol/L (98-107); CREATININE SERUM 0.3 mg/dL (0.7-1.3); GFR1 > 60 mL/min; GLUCOSE SERUM 91 mg/dL (74-106); MAGNESIUM 1.5 mg/dL (1.8-2.4); PHOSPHOROUS 2.6 mg/dL (2.5-4.9); SODIUM SERUM 144 mmol/L (136-145)
[2018-12-03 06:33] LABS: POTASSIUM SERUM 2.6 mmol/L (3.5-5.1)
--- NOTE | 2018-12-03 06:42 | NUR ---
PT SLEPT AT INTERVALS THROUGHOUT THE EVENING. BREATHING IS EVEN AND UNLABORED, NO RESP DISTRESS NOTED. PT DENIES HAVING ANY PAIN AT THIS TIME. CHG WIPES GIVEN. PT INCONTINENT OF LOOSE STOOL, PT CLEANED AND REPOSITIONED, OPIFOAM AND ZGUARD PLACED. IVF INFUSING WELL TO JESUSITA PICC LINE, DOUBLE LUMEN, PATENT AND INTACT, SITE WNL. NO ACUTE CHANGES ENCOUNTERED DURING SHIFT. ALL NEEDS MET AND ANTICIPATED. CALL LIGHT WITHIN REACH. WILL ENDORSE CARE TO AM NURSE.
--- NOTE | 2018-12-03 07:00 | NUR ---
RECEIVED BEDSIDE REPORT FROM INTERNET MERCHANT NURSE. PATIENT RESTING COMFORTABLY IN BED. NO APPARENT DISTRESS OR DISCOMFORT NOTED. 2L NC IN PLACE. PATIENT TOLERATING WELL. BREATHING EVEN AND UNLABORED. NO RESPIRATORY DISTRESS OR DISCOMFORT NOTED. PATIENT DENIES CHEST PAIN AT THIS TIME. PICC LINE 2 LUMEN TO RUE PATENT AND INTACT. ALL QUESTIONS AND CONCERNS ADDRESSED. ALL NEEDS ATTENDED TO. WILL CONTINUE TO MONITOR
[2018-12-03 07:53] VITALS: BP 132/87
[2018-12-03 08:12] LABS: RED CELL DISTRIBUTION WIDTH 15.5 % (11.5-14.5)
[2018-12-03 08:39] VITALS: BP 132/87
--- NOTE | 2018-12-03 10:58 | NUR ---
ALL MORNING MEDICATIONS ADMINISTERED. PATIENT TOLERATED WELL. NO APPARENT DISTRESS OR DISCOMFORT NOTED. NO ADVERSE EFFECTS NOTED. ALL NEEDS ATTENDED TO. WILL CONTINUE TO MONITOR
--- NOTE | 2018-12-03 13:24 | NUR ---
PATIENT SITTING UP IN BED EATING LUNCH AT THIS TIME. TOLERATING FAIRLY. C/O POOR APPETITE. FAMILY MEMBER AT BEDSIDE. ALL NEEDS ATTENDED TO. WILL CONTINUE TO MONITOR
[2018-12-03 14:07] LABS: BAND NEUTROPHIL 3 % (0-10); SEGMENTED NEUTROPHILS 81 % (37-75)
[2018-12-03 14:08] LABS: MONOCYTE 7 % (0-7); PLATELET MORPHOLOGY PLATELETS DECREASED; burr cell (echinocyte) 1+; rbc morphology (normal/abnorm) ABNORMAL (NORMAL)
[2018-12-03 14:15] LABS: PLATELET COUNT 35 x10^3mcL (130-400)
[2018-12-03 16:00] VITALS: BP 118/85
--- NOTE | 2018-12-03 17:55 | NUR ---
PATIENT SITTING UP IN BED ATTEMPTING TO EAT PARTS OF DINNER. NO REAL APPETITE FOR REGULAR FOOD. NO APPARENT DISTRESS OR DISCOMFORT NOTED. ALL NEEDS ATTENDED TO. WILL CONTINUE TO MONITOR
--- NOTE | 2018-12-03 18:39 | NUR ---
PATIENT RESTING COMFORTABLY IN BED AT THIS TIME. NO APPARENT DISTRESS OR DISCOMFORT NOTED. PICC LINE PATENT AND INTACT TO BOTH LUMENS. ALL QUESTIONS AND CONCERNS ADDRESSED. ALL NEEDS ATTENDED TO. SAFETY PRECAUTIONS MAINTAINED. WILL ENDORSE ALL CARE TO AIR TESTER NURSE
--- NOTE | 2018-12-03 19:25 | NUR ---
RECIEVED PT RESTING IN BED WITH NO ACUTE DISTRESS NOTED AT THIS TIME, PT IS A/OX4 NO COMPLAINTS OF RICHARDSON OR DIZZINESS AT THIS TIME, ASSESSMENT PERFORMED AT THIS TIME, PICC LINE TO THE JESUSITA, FLUSHES WELL, SAFETY PRECAUTIONS IN PLACE, WILL CONTINUE TO MONITOR.
[2018-12-03 21:15] VITALS: BP 111/78
--- NOTE | 2018-12-03 23:31 | NUR ---
PT RESTING IN BED COMFORTABLY WITH FAMILY AT BEDSIDE, NO ACUTE DISTRESS NOTED AT THIS TIME, PT DENIES CHEST PAIN OR SOB AT THIS TIME, SAFETY PRECAUTIONS IN PLACE WILL CONTINUE TO MONITOR.
--- NOTE | 2018-12-04 01:10 | NUR ---
PT RESTING IN BED WITH NO ACUTE DISTRESS AT THIS TIME FAMILY AT BEDSIDE, PT DENIES PAIN AT THIS TIME, NO SOB AT THIS TIME, SAFETY PRECAUTIONS IN PLACE, WILL CONTINUE TO MONITOR
--- NOTE | 2018-12-04 03:10 | NUR ---
PT SLEEPING IN BED WITH FAMILY IN CHAIR AT BEDSIDE, NO ACUTE DISTRESS NOTED AT THIS TIME, RESPIRATIONS EVEN AND UNLABORED, SAFETY PRECAUTIONS IN PLACE, WILL CONTINUE TO MONITOR
--- NOTE | 2018-12-04 05:15 | NUR ---
PT SLEPT THROUGH MOST OF THE NIGHT WITH MOTHER AT BEDSIDE, PT DENIED PAIN THROUGH SHIFT,PT HAD NO SOB THROUGH THE NIGHT, SAFETY PRECAUTIONS WERE MAINTAINED THROUGH THE NIGHT, WILL CONTINUE TO MONITOR AND ENDORSE CARE TO ONCOMING RN
[2018-12-04 06:08] VITALS: BP 118/77
--- NOTE | 2018-12-04 06:10 | NUR ---
REMOVED DRESSING, CLEANSED WITH WOUND CLEANSER, APPLIED ZGUARD, APPLIED OPTIFOAM, WILL CONMTINUE TO MONITOR
[2018-12-04 06:33] LABS: CALCIUM 8.2 mg/dL (8.5-10.1); CARBON DIOXIDE 24.4 mmol/L (21-32); CHLORIDE SERUM 108 mmol/L (98-107); CREATININE SERUM 0.3 mg/dL (0.7-1.3); GFR1 > 60 mL/min; GLUCOSE SERUM 85 mg/dL (74-106); MAGNESIUM 1.7 mg/dL (1.8-2.4); PHOSPHOROUS 2.8 mg/dL (2.5-4.9); SODIUM SERUM 143 mmol/L (136-145)
[2018-12-04 07:10] LABS: POTASSIUM SERUM 2.5 mmol/L (3.5-5.1)
[2018-12-04 07:17] LABS: RED CELL DISTRIBUTION WIDTH 14.1 % (11.5-14.5)
--- NOTE | 2018-12-04 07:50 | NUR ---
RECEIVED PATIENT RESTING IN BED, NO ACUTE DISTRESS NOTED. PATIENT DENIES PAIN. PATIENT IS A/OX4. EDEMA NOTED TO BLE, EDUCATED PATIENT TO MAINTAIN BLE ELEVATED. DENIES SOB, PATIENT ON 2L NC. PATIENT STATES CONTINOUS SOFT/LOOSE STOOLS. PATIENT VOIDS IN URINAL. GENERALIZED WEAKNESS NOTED, PATIENT ON AIR MATRESS, REPOSITION Q2HR OR PRN. OPTIFOAM & ZGUARD APPLIED TO OPTIFOAM. NS IV INFUSING TO JESUSITA PICC DOUBLE LUMEN AT 60ML/HR, PICC LINE CDI & PATENT. CALL LIGHT WITHIN REACH, BED IN LOW POSITION, WILL CONTINUE TO MONITOR.
--- NOTE | 2018-12-04 09:00 | NUR ---
DR PASTOR AWARE PATIENT K WAS 2.5, DR PASTOR WILL PLACE NEW ORDERS. WILL CARRY OUT ORDERS & CONTINUE TO MONITOR.
[2018-12-04 09:35] VITALS: BP 111/76
[2018-12-04 11:45] LABS: BAND NEUTROPHIL 8 % (0-10); BASOPHIL 0 % (0-2); MONOCYTE 3 % (0-7); SEGMENTED NEUTROPHILS 78 % (37-75)
[2018-12-04 11:47] LABS: PLATELET MORPHOLOGY PLATELETS DECREASED; burr cell (echinocyte) 1+; ovalocyte/elliptocyte 1+; rbc morphology (normal/abnorm) ABNORMAL (NORMAL); target cell (codocyte) 1+
[2018-12-04 11:53] LABS: PLATELET COUNT 41 x10^3mcL (130-400)
--- NOTE | 2018-12-04 13:10 | NUR ---
PATIENT IS SITTING UP IN BED, PICKING AT FOOD. PATIENT TOLERATING REGULAR DIET, NO ACUTE DISTRESS NOTED. FAMILY AT BEDSIDE. CALL LIGHT WITHIN REACH, BED IN LOW POSITION. WILL CONTINUE TO MONITOR PATIENT.
[2018-12-04 16:58] VITALS: BP 114/79
--- NOTE | 2018-12-04 18:00 | NUR ---
PATIENT RESTING IN BED, NO ACUTE DISTRESS NOTED. PATIENT IS STABLE AT THIS TIME. DENIES PAIN, PATIENT REPOSITIONED FOR COMFORT. FAMILY AT BEDSIDE. PICC LINE RUE CDI & PATIENT. CALL LIGHT WITHIN REACH, BED IN LOW POSITION, WILL CONTINUE TO MONITOR.
--- NOTE | 2018-12-04 19:10 | NUR ---
REPORT RECEIVED FROM DAY SHIFT RN. PATIENT WAS SEEN AND IS RESTING COMFORTABLY IN BED WITH MOTHER AT BEDSIDE. BREATHING EVEN ON 2L NC WITH HUMIDIFER. NO SOB OR RESP DISTRESS NOTED. NO DISTRESS NOTED. DENIES CHEST PAIN. NO C/O PAIN. JESUSITA PICC LINE IN PLACE. PATENT AND INTACT. NO REDNESS OR SWELLING NOTED. NEUTROPENIC PRECAUTIONS IN PLACE. COMFORT AND SAFETY PRECAUTIONS IN PLACE. BED IS LOCKED AND IN THE LOWEST POSITION. SIDE RAILS UP X2. PATIENT REPOSITIONED FOR COMFORT. CALL LIGHT IS WITHIN REACH. WILL CONTINUE TO MONITOR.
[2018-12-04 20:58] VITALS: BP 114/79
--- NOTE | 2018-12-05 00:22 | NUR ---
C/O /10 BACK PAIN. PRN TYLENOL ADMINISTERED PRESCRIBED. WILL CONTINUE TO MONITOR AND REASSESS PAIN LEVEL. NO DISTRESS NOTED. BREATHING EVEN ON 2L NC WITH HUMIDIFIER. CALL LIGHT IS WITHIN REACH.
--- NOTE | 2018-12-05 01:05 | NUR ---
PATIENT HAD 15 EPISODES OF DIARRHEA. CHANGED BY IMTIAZ KIM EACH TIME. NOTIFIED DR GAMEZ AND HE IS AWARE. NO NEW ORDERS AT THIS TIME. WILL CONTINUE TO MONITOR.
--- NOTE | 2018-12-05 01:25 | NUR ---
PATIENT IS LAYING IN BED WATCHING VIDEOS ON HIS PHONE. MOTER AT BEDSIDE. SAID PAIN IMPROVED TO A 4/10. NO DISTRESS NOTED. BREATHING EVEN ON 2L NC WITH HUMIDIFIER. IVF INFUSING WELL TO JESUSITA PICC LINE. SAFETY MEASURES IN PLACE. NEUTROPENIC PRECAUTIONS IN PLACE. CALL LIGHT IS WITHIN REACH. WILL CONTINUE TO MONITOR
--- NOTE | 2018-12-05 05:11 | NUR ---
PATIENT SLEPT ON AND OFF THROUGHOUT THE NIGHT. NO ACUTE CHANGES NOTED. BREATHING EVEN ON 2L NC W/ HUMIDIFIER. NO DISTRESS NOTED. DENIES CHEST PAIN. C/O BACK PAIN X1 THROUGHOUT THE NIGHT AND MEDICATED WITH PRN TYLENOL WITH GOOD RELIEF. 2 LUMEN PICC LINE TO THE JESUSITA. BOTH LINES PATENT AND INTACT. ONE LINE IS INFUSING NS @50ML/HR WELL. DRESSING CDI. PATIENT HAD WATER STOOL X15 THROUGHOUT THE NIGHT. DR VERA SCHAFFER. MOTHER AT BEDSIDE. NEUTROPENIC PRECAUTIONS IN PLACE AND MAINTAINED. SAFETY MEASURES IN PLACE. ALL NEEDS AND CONCERNS ADDRESSED. CALL LIGHT IS WITHIN REACH. WILL CONTINUE TO MONITOR AND ENDORSE CARE TO DAY SHIFT RN.
[2018-12-05 05:50] VITALS: BP 111/75
[2018-12-05 06:18] LABS: CALCIUM 7.9 mg/dL (8.5-10.1); CARBON DIOXIDE 21.9 mmol/L (21-32); CHLORIDE SERUM 109 mmol/L (98-107); CREATININE SERUM 0.4 mg/dL (0.7-1.3); GFR1 > 60 mL/min; GLUCOSE SERUM 92 mg/dL (74-106); MAGNESIUM 1.6 mg/dL (1.8-2.4); PHOSPHOROUS 2.5 mg/dL (2.5-4.9); SODIUM SERUM 144 mmol/L (136-145)
[2018-12-05 06:59] LABS: POTASSIUM SERUM 2.3 mmol/L (3.5-5.1)
--- NOTE | 2018-12-05 07:01 | NUR ---
CRITICAL VALUE OF K 2.3. NOTIFIED DR GAMEZ. NO NEW ORDERS AT THIS TIME. WILL ENDORSE CARE TO DAY SHIFT RN
--- NOTE | 2018-12-05 07:05 | NUR ---
RECEIVED PT FROM NIGHT NURSE. PT IS LAYING DOWN IN BED WITH HOB UP RESTING WITH EYES OPEN. PT LOOKS TO BE IN NO ACUTE DISTRESS AT THIS TIME AND DENIES ANY PAIN. RESPIRATIONS EVEN AND UNLABORED. IV SITE PATENT WITH NO SIGNS OF ERYTHEMA OR SWELLING WITH IV FLUIDS INFUSING. BED IN LOWEST POSITION, CALL LIGHT WITHIN REACH. WILL CONTINUE TO MONITOR.
[2018-12-05 07:23] LABS: RED CELL DISTRIBUTION WIDTH 15.7 % (11.5-14.5)
[2018-12-05 07:57] VITALS: BP 114/80
[2018-12-05 09:07] LABS: BAND NEUTROPHIL 10 % (0-10); BASOPHIL 0 % (0-2); MONOCYTE 6 % (0-7); SEGMENTED NEUTROPHILS 75 % (37-75)
[2018-12-05 09:08] LABS: PLATELET MORPHOLOGY PLATELETS DECREASED; burr cell (echinocyte) 1+; rbc morphology (normal/abnorm) ABNORMAL (NORMAL); target cell (codocyte) 1+
[2018-12-05 09:09] LABS: ovalocyte/elliptocyte 1+
[2018-12-05 09:26] LABS: PLATELET COUNT 32 x10^3mcL (130-400)
--- NOTE | 2018-12-05 09:30 | NUR ---
PT COMPLAINING OF BACK PAIN TO THE LOWER BACK. PT REQUESTING PAIN MEDICATION. PT REPOSITIONED. TALKED WITH DR. PASTOR WHO OKAYED TO GIVE TYLENOL FOR MILD PAIN. WILL MEDICATION ACCORDING TO EMAR.
--- NOTE | 2018-12-05 13:00 | NUR ---
PREMEDICATED PT FROM BLOOD TRANSFUSION ORDERED WITH BENADYL AND TYLENOL. WILL CONTINUE TO MONITOR.
--- NOTE | 2018-12-05 13:50 | NUR ---
BEGAN BLOOD TRANSFUSION. PRE VITALS ARE TEMP: 96.8, RR: 16, BP: 110/79, O2: 97% ON ROOM AIR, HR: 88. INFORMED PT OF SYMPTOMS TO REPORT DURING BLOOD TRANSFUSION. PT VERBALIZED UNDERSTANDING. VERIFIED BLOOD WITH SECOND RN. WILL WAIT WITH PT FOR FIRST 15 MINUTES TO ADVERSE REACTIONS AND WILL INCREASE RATE ORDERED AFTER 15 MINUTES.
--- NOTE | 2018-12-05 14:10 | NUR ---
RECHECKED PT VITAL SIGNS, CURRENT VITALS ARE TEMP: 97.9, HR: 91, BP: 112/81, RR: 16, O2: 97% ON ROOM AIR. PT DENIES ANY SOB OR CHILLS. PT VERBALIZED BACK INSTRUCTIONS FOR ADVERSE REACTIONS OF WHEN TO CALL NURSE DURING BLOOD TRANSFUSION. PT LOOKS TO BE IN NO ACUTE DISTRESS AT THIS TIME. INCREASED BLOOD TRANSFUSION RATE ORDERED. BED IN LOWEST POSITION, CALL LIGHT WITHIN REACH. WILL CONTINUE TO MONITOR.
--- NOTE | 2018-12-05 15:00 | NUR ---
BLOOD TRANSFUSION COMPLETE. PT LOOKS TO BE IN NO ACUTE DISTRESS AT THIS TIME AND DENIES ANY PAIN. CURRENT VITAL SIGNS ARE TEMP: 97.3, O2: 97% ON ROOM AIR, HR: 82, BP: 127/88, RR: 16. ANOTHER BLOOD TRANSFUSION ORDERED. WILL DELIVER ORDERED
[2018-12-05 16:41] VITALS: BP 113/80
--- NOTE | 2018-12-05 18:50 | NUR ---
STARTED SECOND UNIT OF BLOOD TRANSFUSION. PRETRANSFUSION MEDICATIONS GIVEN. PRETRANSFUSION VITALS ARE TEMP: 97.7, HR: 87, BP: 120/84, RESP: 16, O2: 95%. BLOOD INFUSING AT A SLOWER RATE AND WILL WAIT WITH PT FOR FIRST 15 MINUTES TO ASSESS FOR ADVERSE EFFECTS.
--- NOTE | 2018-12-05 19:00 | NUR ---
PATIENT AWAKE/ALERT IN BED NO DISTRESS NOTED, GAVE DISCHARGE INSTRUCTION TO PATIENT, PATIENT VERBALIZE UNDERSTANDING. D/C TELE #1 AND GIVE TO SUZY SHAW. DISCHARGE SIGNED BY PATIENT. ALL BELONGINGS SEND WITH PATIENT. REPORT GIVEN TO [facility].
--- NOTE | 2018-12-05 19:12 | NUR ---
PT LOOKS TO BE IN NO ACUTE DISTRESS AT THIS TIME. CURRENT VITALS 15 MINUTES AFTER BLOOD TRANSFUSION BEGAN ARE TEMP: 97.5, HR: 80, P: 118/86, RR: 20, O2: 96% ON 2L NC. BLOOD TRANSFUSION RATE INCREASED. PT EDUCATED ON POSSIBLE ADVERSE EFFECTS AND PT VERBALIZED UNDERSTANDING OF WHEN TO CALL NURSE IF ADVERSE EFFECTS OCCUR. WILL ENDORSE TO ONCOMING SHIFT.
[2018-12-05 20:00] VITALS: BP 125/88
--- NOTE | 2018-12-05 20:00 | NUR ---
PT IS A/O X4. PT IS MED SURG, DENIES ANY CHEST PAIN OR SOB AT THIS TIME. PT PULSES PALPABLE, EDEMA NOTED ON THE BLE. PT BREATHE SOUNDS EVENA AND UNLABORED. PT LUNG SOUNDS DIMINSHED BILATERALLY. PT IS ON 2L HUMIDIFIER. PT BOWEL SOUNDS ARE ACTIVE, LAST BM 12/05. PT IS INCONTINENT. PT HAS GENERAL WEAKENSS, PT ON AIR MATTRESS. PT HAS A OPEN WOUND TO COCCYX COVER WITH OPTIFORM. PT DENIES ANY PAIN AT THIS TIME. PT HAS JESUSITA PICC LINE DOUBLE LUMEN INFUSING WELL. RECIEVED PT FROM NURSE FRANKLIN.
[2018-12-05 20:40] VITALS: BP 125/88
--- NOTE | 2018-12-05 20:49 | NUR ---
PT C/O OF BACK PAIN. PT RECIEVED TYLENOL X2 TAB. WILL CONTINUE TO MONITOR.
--- NOTE | 2018-12-05 22:10 | NUR ---
PT COMPLETED 2ND UNIT OF PRBC. PT TOLERATED WELL. NO REACTION NOTED. PT VS WNL. WILL CONTINUE TO MONITOR.
--- NOTE | 2018-12-05 23:20 | NUR ---
PT RECEIVED NORCO X1 FOR BACK PAIN. WILL CONTINUE TO MONITOR.
--- NOTE | 2018-12-06 00:06 | NUR ---
PT IS ASLEEP, EASILY AROUSABLE WITH VERBAL COMMANDS. PT IS ON AIR MATRESS, REPOSITIONED. PT DENIES ANY PAIN AT THIS TIME.
[2018-12-06 05:30] VITALS: BP 118/83
--- NOTE | 2018-12-06 05:57 | NUR ---
PT SLEPT THROUGH LONG INTERVALS DURING THE NIGHT. PT WAS REPSOITIONED ON AIR MATRESS. PT C/O OF BACK PAIN AND RECIEVED NORCO X1 LAST NIGHT. PT WAS COOPERATIVE WITH NURSING CARE. NO SIGNS AND SYMPTOMS OF PAIN. NO RESP DISTRESS NOTED. PT PICC LINE TO THE JESUSITA INFUSING WELL, CDI. NO DELAYED REACTION FOR POST BLOOD TRANSFUSION.
[2018-12-06 06:44] LABS: CALCIUM 8.1 mg/dL (8.5-10.1); CARBON DIOXIDE 23.7 mmol/L (21-32); CHLORIDE SERUM 111 mmol/L (98-107); CREATININE SERUM 0.3 mg/dL (0.7-1.3); GFR1 > 60 mL/min; GLUCOSE SERUM 60 mg/dL (74-106); MAGNESIUM 2.1 mg/dL (1.8-2.4); PHOSPHOROUS 2.2 mg/dL (2.5-4.9); SODIUM SERUM 146 mmol/L (136-145)
[2018-12-06 07:42] LABS: RED CELL DISTRIBUTION WIDTH 14.9 % (11.5-14.5)
--- NOTE | 2018-12-06 07:45 | NUR ---
ALERT AND ORIENTED. HOB SLIGHTLY ELEVATED. ON 02 2L NC. APPEARS VERY THIN AND WEAK. ABLE TO TURN AND REPOSITIION SELF IN BED. JESUSITA PICC LINE WITH 2 PORTS BOTH PATENT. REPOSITIONED FOR BREAKFAST. COMFORTABLE AT THIS TIME. CALL LIGHT WITHIN REACH. ON REVERSE ISOLATIONS FOR WBC 1.1.
[2018-12-06 08:32] VITALS: BP 112/77
--- NOTE | 2018-12-06 12:07 | NUR ---
K[place]y TO DR. PASTOR RE: PLATELETS OF 19. SHE WILL ORDER TRANSFUSION OF PLATELETS.
[2018-12-06 12:08] LABS: PLATELET COUNT 19 x10^3mcL (130-400)
[2018-12-06 13:48] LABS: BAND NEUTROPHIL 7 % (0-10); MONOCYTE 5 % (0-7); SEGMENTED NEUTROPHILS 76 % (37-75); rbc morphology (normal/abnorm) ABNORMAL (NORMAL)
[2018-12-06 13:49] LABS: PLATELET MORPHOLOGY PLATELETS DECREASED; burr cell (echinocyte) 1+; ovalocyte/elliptocyte 1+
--- NOTE | 2018-12-06 14:48 | NUR ---
FIRST UNIT PLATELETS INFUSING.
[2018-12-06 17:10] VITALS: BP 112/79
--- NOTE | 2018-12-06 17:15 | NUR ---
FIRST U NIT PRBCS INFUSED. NO ADVERSE REACTIONS.
--- NOTE | 2018-12-06 17:56 | NUR ---
2ND UNIT OF PLATELETS INFUSING. 2ND UNIT CAME IN 2 BAGS.
--- NOTE | 2018-12-06 18:53 | NUR ---
ALERT AND ORIENTED. REMAINS VERY WEAK. ASSIST WITH ALL ADL'S. 0N 02 3L NC. RT PROTOCOL. ZITHROMAX PO. ALSO IV ABX. DIFLUCAN DC'D. NS 10 CC HOUR. BOTH PORTS TO LEFT UPPER ARM PICC PATENT. USES URINAL, OCC INCONTINENT OF URINE AND BOWEL. NORCO HELPFUL FOR BACK PAIN. TURNED AND REPOSITIONED FOR COMFORT. DRESSING CHANGED TO COCCYX WOUND. NO DRAINAGE NOTED. PINK SIZE OF A DIME. GUARD APPLIED TO BUTTOCKS. REVERSE ISOLATION PRECAUTIONS. CALL LIGHT WITHIN REACH. 2ND UNIT PLATELETS INFUSING.MOTHER IN ROOM WITH PT.
--- NOTE | 2018-12-06 19:35 | NUR ---
RECEIVED PT FROM DAY SHIFT RN. PT AAOX4 DENIES HEADACHE OR DIZZINESS. BREATHING EVEN AND UNLABORED WITH NO SOB NOTED, NC 2L/MIN. MED SURG PT DENIES CHEST PAIN OR PRESSURE. PICC LINE TO JESUSITA, INFUSING WELL. BLE EDEMA NOTED, ENCOURAGED TO ELEVATE FEET ON A PILLOW. WOUND TO COCCYX COVERED WITH OPTIFOAM. PT DENIES ANY DISTRESS OR DISCOMFORT AT THIS TIME. CALL BUTTON WITHIN REACH. SAFETY PRECAUTIONS IN PLACE. MOTHER AT BEDSIDE. NEUTROPENIC PRECAUTIONS. WILL CONTINUE TO MONITOR.
[2018-12-06 20:30] VITALS: BP 120/87
--- NOTE | 2018-12-06 20:30 | NUR ---
PLATELET TRANSFUSION COMPLETED AT THIS TIME. NO ADVERSE REACTION NOTED. VS STABLE.
--- NOTE | 2018-12-07 00:23 | NUR ---
PT RESTING, BREATHING EVEN AND UNLABORED ON NC 2L/MIN. NO SIGNS OF DISTRESS NOTED. CALL BUTTON WITHIN REACH. SAFETY PRECAUTIONS IN PLACE. MOTHER AT BEDSIDE. WILL CONTINUE TO MONITOR.
--- NOTE | 2018-12-07 06:11 | NUR ---
PT SLEPT MOST OF THE NIGHT WITH NO SIGNS OF DISTRESS NOTED. BREATHING EVEN AND UNLABORED ON NC 2L/MIN. MEDICATED PER EMAR. PT DENIES ANY DISTRESS OR DISCOMFORT. TURN AND REPOSITIONED NEEDED. CALL BUTTON WITHIN REACH. SAFETY PRECAUTIONS IN PLACE. NEUTROPENIC PRECAUTIONS. WILL CONTINUE TO MONITOR AND ENDORSE CARE TO DAY SHIFT RN.
[2018-12-07 06:50] VITALS: BP 113/81
[2018-12-07 06:51] LABS: CALCIUM 7.6 mg/dL (8.5-10.1); CHLORIDE SERUM 110 mmol/L (98-107); CREATININE SERUM 0.3 mg/dL (0.7-1.3); GFR1 > 60 mL/min; MAGNESIUM 1.9 mg/dL (1.8-2.4); PHOSPHOROUS 2.7 mg/dL (2.5-4.9); POTASSIUM SERUM 3.5 mmol/L (3.5-5.1); SODIUM SERUM 147 mmol/L (136-145)
[2018-12-07 06:56] LABS: GLUCOSE SERUM 48 mg/dL (74-106)
--- NOTE | 2018-12-07 07:15 | NUR ---
PT BLOOD SUGAR THIS AM WAS 46. PT ASYMTOMATIC. DEXTROSE 10% GIVEN ORDERED. DR PASTOR AT BEDSIDE AND MADE AWARE. PT IN NO ACUTE DISTRESS. CONTINUITY OF CARE ENDORSED TO AM NURSE, PER AM NURSE WILL RECHECK BS AFTER D10 IS COMPLETED.
[2018-12-07 07:38] LABS: RED CELL DISTRIBUTION WIDTH 14.9 % (11.5-14.5)
--- NOTE | 2018-12-07 08:00 | NUR ---
REVERSE ISOLATION FOR WBCS 1.1. ON 02 2L NC. ALERT AND ORIENTED. ON AIR MATTRESS. APPEARS CACHEXIC. SET UP BREAKFAST TRAY. C/O ABD PAIN 9/10 ACHE. ABD APPEARS SLIGHTLY MORE DISTENDED THAN YESTEDAY. ACTIVE BOWEL SOUNDS. D10 FINISHED INFUSING. ABLE TO TURN AND REPOSITION SELF IN BED. ALERT AND ORIENTED. BED IN LOW POSITION HOB SLIGHTLY ELEVATED FOR BREAKFAST. BED ALARM PUFF IRONER LIGHT WITHIN REACH. WILL MEDICATE ORDERED PRN.
--- NOTE | 2018-12-07 08:08 | NUR ---
ACCUCK 126 AFTER RECEIVING 250 ML D10.
[2018-12-07 08:20] VITALS: BP 129/88
[2018-12-07 16:13] LABS: PLATELET COUNT 38 x10^3mcL (130-400)
[2018-12-07 16:21] LABS: BAND NEUTROPHIL 9 % (0-10); MONOCYTE 4 % (0-7); SEGMENTED NEUTROPHILS 78 % (37-75); rbc morphology (normal/abnorm) ABNORMAL (NORMAL)
[2018-12-07 16:22] LABS: burr cell (echinocyte) 1+; ovalocyte/elliptocyte 1+
[2018-12-07 16:23] LABS: PLATELET MORPHOLOGY PLATELETS DECREASED
[2018-12-07 17:35] VITALS: BP 117/75
--- NOTE | 2018-12-07 19:30 | NUR ---
RECEIVED PT FROM DAY SHIFT RN. PT AAOX4 DENIES HEADACHE OR DIZZINESS. BREATHING EVEN AND UNLABORED WITH NO SOB NOTED, NC 2L/MIN. PICC LINE TO JESUSITA. BLE EDEMA NOTED, ENCOURAGED TO ELEVATE FEET ON A PILLOW. WOUND TO COCCYX COVERED WITH OPTIFOAM. PT DENIES ANY DISTRESS OR DISCOMFORT AT THIS TIME. CALL BUTTON WITHIN REACH. SAFETY PRECAUTIONS IN PLACE. MOTHER AT BEDSIDE. NEUTROPENIC PRECAUTIONS. WILL CONTINUE TO MONITOR.
--- NOTE | 2018-12-07 19:36 | NUR ---
DR GAMEZ MADE AWARE EKG RESULT ST HR 134, PER DR GAMEZ TO PLACED PT ON TELE MONITOR.
--- NOTE | 2018-12-07 19:39 | NUR ---
EKG COMPLETED. TROP DRAWN FOR C/O LEFT SIDED PRESSURE. CONTINUES ON NC 3L PT SAT ON 2L WAS 90%. CONTINUS ON FOSCAVIR IV. VERY WEAK. REQUIRES ASSIST WITH MOST ADL'S. POOR APPETITE. REVERSE ISO FOR LOW WBCS. PT WILL BE GOING BACK ON TELE. CALL LIGHT WITHIN REACH.
[2018-12-07 19:51] VITALS: BP 102/64
--- NOTE | 2018-12-07 19:56 | NUR ---
PLACED PT ON TELE #19 ST HR 139, PT DENIES ANY CHEST PAIN OR PRESSURE AT THIS TIME. DR GAMEZ MADE AWARE.
--- NOTE | 2018-12-07 20:21 | NUR ---
DR GAMEZ MADE AWARE PT HR SUSTAINING IN 140'S. PER DR GAMEZ CONTINUE TO MONITOR.
--- NOTE | 2018-12-07 21:29 | NUR ---
PT REPORTED HAVING CHEST DISCOMFORT, REQUESTING FOR PAIN MEDICATION. MEDICATED PER EMAR. HR SUSTAINING IN 170'S. DR COREY PAGED AND MADE AWARE. AWAITING NEW ORDERS.
--- NOTE | 2018-12-07 22:16 | NUR ---
PER DR MEYER TO ORDER PLASMA CMV LAB LEVEL IN AM. NEW ORDER CARRIED OUT.
--- NOTE | 2018-12-07 22:24 | NUR ---
DR GAMEZ MADE AWARE PT IS RESTING AT THIS TIME WITH HR SUSTAINING IN 150'S. PER DR GAMEZ TO CONTINUE TO MONITOTOR THERE IS NO NEED FOR FURTHER ORDERS. PER DR GAMEZ DOES NOT NEED TO SEE PATIENT AT THIS TIME.
--- NOTE | 2018-12-08 | NUR ---
PT BREATHING EVEN AND UNLABORED WITH NC 2L/MIN NO SOB NOTED. HR CONTINUE TO SUSTAIN ABOVE 130. NO SIGNS OF ACUTE DISTRESS NOTED. WILL CONTINUE TO MONITOR.
--- NOTE | 2018-12-08 02:12 | NUR ---
PT BREATHING EVEN AND UNLABORED ON NC 2L/MIN, NO SOB NOTED. CALL BUTTON WITHIN REACH. NO SIGNS OF DISTRESS NOTED. MOTHER AT BEDSIDE. WILL CONTINUE TO MONITOR.
--- NOTE | 2018-12-08 05:28 | NUR ---
PT BLOOD SUGAR 15, REPEATED BLOOD SUGAR CHECK RESULT OF 15. DEXTROSE 10% GIVEN AT THIS TIME. DR GAMEZ MADE AWARE.
--- NOTE | 2018-12-08 05:40 | NUR ---
DR COREY MADE AWARE OF PT'S BLOOD SUGAR WAS 15 MG/DL AND REPEAT 2ND TIME STILL 15 MG/DL, PER DR COREY THAT JUST GIVE DEXTROSE 10% 250ML IV X 1 AND NO NEED FOR CONT IVF.
--- NOTE | 2018-12-08 05:53 | NUR ---
DR COREY MADE AWARE PT BLOOD SUGAR RESULT OF 194 AFTER D10 GIVEN. PER DR COREY TO HOLD D50 AT THIS TIME.
[2018-12-08 06:00] VITALS: BP 98/59
--- NOTE | 2018-12-08 06:14 | NUR ---
PT BREATHING EVEN AND UNLABORED WITH NO SIGNS OF DISTRESS NOTED. PT SLEPT ON AND OFF THROUGHOUT THE NIGHT. PT HR SUSTAINED 140S. PT DENIES ANY CHEST PAIN. MEDICATED PER EMAR. PT HAD A LARGE BM LOOSE. CALL BUTTON WITHIN REACH. SAFETY PRECAUTIONS IN PLACE. WILL CONTINUE TO MONITOR AND ENDORSE CARE TO DAY SHIFT RN.
[2018-12-08 06:30] LABS: CALCIUM 6.8 mg/dL (8.5-10.1); CARBON DIOXIDE 28.9 mmol/L (21-32); CHLORIDE SERUM 111 mmol/L (98-107); CREATININE SERUM 0.3 mg/dL (0.7-1.3); GFR1 > 60 mL/min; MAGNESIUM 1.8 mg/dL (1.8-2.4); PHOSPHOROUS 2.9 mg/dL (2.5-4.9); POTASSIUM SERUM 3.2 mmol/L (3.5-5.1); SODIUM SERUM 148 mmol/L (136-145)
[2018-12-08 06:43] LABS: GLUCOSE SERUM 27 mg/dL (74-106)
--- NOTE | 2018-12-08 06:44 | NUR ---
PT BLOOD SUGAR 47 AND 44. D50 GIVEN PER EMAR. DR LOPEZ MADE AWARE.
--- NOTE | 2018-12-08 06:58 | NUR ---
PT BLOOD SUGAR 156 AFTER D50 GIVEN.
--- NOTE | 2018-12-08 07:35 | NUR ---
PT RESTING, BREATHING EVEN AND UNLABORED. NO SIGNS OF DISTRESS NOTED. ENDORSED CARE TO DAY SHIFT RN, ALL QUESTIONS ADDRESSED.
--- NOTE | 2018-12-08 07:50 | NUR ---
RECEIVED PT FROM WEATHERIZATION AND HOUSING INSPECTOR. PT IS SLEEPING BUT AROUSABLE BUT VERY LETHARGIC AND SLIGHTLY CONFUSED. CHECKED BS, IT IS 44, RECHECKED BS 46. BP=81/47 WITH MAP 57, HR 140. TEMP=98.4, RESP=12, SPO2 95%. PT SLOWLY SAID HE IS HAVING CHEST DISCOMFORT. D5.45 WAS STARTED PER ORDER BEFORE CHECKED THE BS. D10 IVF STARTED ORDER FOR LOW BS AT 0823 AND RECHECKED BS BEFORE THAT IS 55. INFORMED AND BEKA ABOUT EVERYTHING. NO NEW ORDER RECIEVED. CHECKED BS AFTER D10 IS 241 AND BP IMPROVED DURING D10 BOLUS AT 1200ML/HR IS 88/54 WITH MAP 63 AND RECHECKED BP AFTER D10 250ML FINISHED IS 97/55 WITH MAP 69 AND HR FLUTUATING FROM 120 TO 130'S. NO MORE CHEST DISCOMFORT NOW AND PT IS MORE AWAKE BUT SLIGHTLY LETHARGIC. DENIES ANY PAIN. WAS COMPLAINING NAUSEA AND ZOFRAN IV WAS GIVEN AND NOW NO MORE NAUSEA. MOTHER AT BEDSIDE. CHARGE NURSE AWARE ABOUT EVERYHING AND SHE SPOKE WITH AND . STILL NO NEW ORDER RECEIVED. CONTINUE MONITERING PT CLOSELY.
--- NOTE | 2018-12-08 08:19 | NUR ---
RESIDENT CALL PHONE CALLED AND MADE AWARE THAT PT'S BS HAS DROPPED ONCE MORE TO 40'S CURRENTLY GETTING ANOTHER PRN OF D10% RAPID INFUSION. PER RESIDENT WILL DISCUSS WITH ATTENDING. MADE AWARE THAT BS KEEP DROPPING REQUIRING DEXTROSE EVER HR PT ACCUITY IS TOO HIGH FOR THE FLOOR AND PT SHOULD BE TRANSFER TO ICU. MADE AWARE BY RESIDENT THAT SHE WILL DISCUSS WITH DR. IRELAND. ATTENDING NURSE MADE AWARE AWAITING FURTHER ORDERS.
[2018-12-08 09:15] VITALS: BP 97/55
[2018-12-08 09:34] LABS: PLATELET COUNT 42 x10^3mcL (130-400); RED CELL DISTRIBUTION WIDTH 14.7 % (11.5-14.5)
--- NOTE | 2018-12-08 09:40 | NUR ---
INFORMED AND ABOUT H/H=5.5/15, WBC=1.6, RBC=1.65 AND PLT=42 AND ALSO INFORMED HER ABOUT BP 84/36. NO NEW ORDER RECEIVED THIS TIME.
--- NOTE | 2018-12-08 10:00 | NUR ---
PT REFUSING TO EAT BREAKFAST, SLIGHTLY LETHARGIC, INFORMED .
--- NOTE | 2018-12-08 11:00 | NUR ---
BOLUS 1000ML NS STARTED PER ORDER FOR LOW BP 85/36. PT IS LETHARGIC BUT SLOWLY ABLE TO RESPOND. WILL RECHECK BP. HR 138.
--- NOTE | 2018-12-08 11:33 | NUR ---
Follow-up Nutrition Assessment: 201/B MICHELLE SHAW MR Dx: Intractable vomiting, End stage AIDS PMHx: HIV (September 2017), AIDS, Asthma Labs: (12/08) K 3.2L, CREAT 0.3L, WBC 1.4L, BG 27L, NA 148H Meds: ferrous sulfate, folic acid, megace, oscal, Zofran, foscavir Diet: Regular (Neutropenic), (Pt OK to have outside food). PO Intake: (12/07) 53% average Weights: (11/10) 43 kg Skin: Optifoam to buttocks, coccyx wound covered Juan Luis: 14 I/Os: 1463/1600 (-137) Edema: BLE GI: denies abd pain/N/V Last BM: 12/07 RDN Visit (12/08): Pt looked extremely emaciated and malnourished. Pt's mother said that patient is feeling nauseous and has not eaten anything for breakfast today or dinner last night. However, patient is drinking Ensure. There are no significant changes since last nutrition assessment. Patient is awaiting SNF placement. Estimated Nutritional Needs Based on body weight 43.1 kg Energy: 0183-2964 kcal/d (35-40 kcal/kg- weight gain) Protein: 51.7- 64.6 g/d (1.2-1.5 g/kg)- d/t loss of LBM Fluid: 4891-7873 ml/d (1 ml/kcal) or per doctor Nutrition Diagnosis 1.Malnutrition related to AIDS as evidenced by unintentional weight loss of 6# in one week, loss of LBM, BMI 15.4 kg/m2. (ongoing) Intervention 1. Recommend continuing Neutropenic regular diet with Ensure Enlive BID. Monitor/Evaluate Goal: Have pt meet at least 75% of estimated needs Monitor: PO intake, Labs, GI function F/U in 7 days as low risk 12/15
--- NOTE | 2018-12-08 11:33 | NUR ---
1. Recommend continuing Neutropenic regular diet with Ensure Enlive BID.
--- NOTE | 2018-12-08 12:00 | NUR ---
RECHECKED BP AFTER BOLUS NS, 92/47 WITH MAP 62 AND HR 136. INFORMED AND ABOUT THAT. WILL CLOSELY MONITER THE PT. FAMILY AT BEDSIDE. INFORMED ABOUT PT HAD BLACK COLOR DIARRHEA STOOL X2 TODAY.
[2018-12-08 12:50] VITALS: BP 92/45
[2018-12-08 13:20] LABS: RED CELL DISTRIBUTION WIDTH 15.3 % (11.5-14.5)
[2018-12-08 13:21] LABS: PLATELET COUNT 38 x10^3mcL (130-400)
--- NOTE | 2018-12-08 13:23 | NUR ---
INFORMED DR.RANOLA CASTRO H/H=3.5/10, WBC=1.5, RBC=1.10 AND PLT=38 AND BP 85/36 WITH MAP 59. NO NEW ORDER RECEIVED THIS TIME.
--- NOTE | 2018-12-08 13:30 | NUR ---
PT IS VERY LETHARGIC, NOT RESPONDING. BP IS 79/41 WITH MAP 51 AND HAS AGONAL BREATHING ONLY. BS IS 81. RAPID RESPONSE CALLED. HR IS 142, TEMP=98.2 AND SPO2 IS 98% .BAG MASK BREATHING TECH STARTED FOR AGONAL BREATHING. BP RECHECKED IS 87/43 WITH MAP 52 AND HR 145, ST. CODE CALLED AT 1333 FOR AGONAL BREATHING BUT PT'S MOTHER DECIDED AT 1334 FOR DNR. NO MEDICINES GIVEN YET AND NOT CODE INTERVENTION TAKEN. IS TALKING TO FAMILY ABOUT COMFORT CARE. GAVE PT COMFORTABLE POSITION. MOTHER AT BEDSIDE. RECENT BP IS 113/61 WITH MAP 71 AND HR 142. PT IS STILL LETHARGIC AND AGONAL BREATHING. CLOSELY MONITERING THE PT.
[2018-12-08 13:43] LABS: ATYPICAL LYMPH 2 %; BAND NEUTROPHIL 1 % (0-10); BASOPHIL 0 % (0-2); MONOCYTE 2 % (0-7); SEGMENTED NEUTROPHILS 83 % (37-75)
[2018-12-08 13:45] LABS: PLATELET MORPHOLOGY PLATELETS DECREASED; rbc morphology (normal/abnorm) NORMAL (NORMAL)
[2018-12-08 14:15] LABS: ATYPICAL LYMPH 1 %; BAND NEUTROPHIL 0 % (0-10); BASOPHIL 1 % (0-2); MONOCYTE 1 % (0-7); SEGMENTED NEUTROPHILS 82 % (37-75)
[2018-12-08 14:16] LABS: PLATELET MORPHOLOGY PLATELETS DECREASED; rbc morphology (normal/abnorm) ABNORMAL (NORMAL)
--- NOTE | 2018-12-08 16:20 | NUR ---
CALLED INTO PT'S ROOM BY IMTIA[facility]. MOTHER AT BEDSIDE WANTED TO REPORT LARGE BLOOD STOOL. NOTED LARGE CLOTS PASSED WITH WATER STOOL. DR. PASTOR MADE AWARE. NO FURTHER ORDERS.
--- NOTE | 2018-12-08 18:00 | NUR ---
PT HR IS DROPPING TO 60'S RAPIDLY , THEN 30'S. WENT TO CHECK ON PT. NONREPSONSIVE. INFORMED . SHE CAME AND CHECKED ON PT. ASYSTOLE FOUND ON THE MONITOR AND PRONOUNCED PT AT 1811. PT'S MOTHER AT BEDSIDE.
--- NOTE | 2018-12-08 18:32 | NUR ---
[facility] CALLED SPOKE WITH [facility], PRELIMINARY INFO GIVEN AWAITING CALL BACK FROM [facility]. ATTENDING NURSE MADE AWARE.
--- NOTE | 2018-12-08 18:45 | NUR ---
CALLED [facility] AND SPOKE WITH JAMIA, GAVE INFORMATION AND HE PROVIDED THE CASE NUMBER.
--- NOTE | 2018-12-08 19:30 | NUR ---
WAITING FOR [facility] TO CALLED BACK. FAMILY AT BEDSIDE. GAVE REPORT TO NIGHT NURSE EMILY.
--- NOTE | 2018-12-08 19:45 | NUR ---
[facility] CALL[facility] BACK AND ASKED FOR INFORMATIONS. PRITI RELEASED THE BODY AND GAVE CASE NUMBER. WRITTEN IN THE RECORD FORM.
--- NOTE | 2018-12-08 20:00 | NUR ---
MOTHER AND FAMILY AT BEDSIDE, PAPERWORK SIGNED BY MOTHER. DISCUSSED POST MORTUM CARE WITH FAMILY, PT BODY WILL BE PREPPED AND TAKEN DOWN TO MORGUE. PT FAMILY AGREEABLE WITH PLAN AT THIS TIME.
== END 2018-12-08 22:55 | disposition expired | DRG 710 ==
LOC: ED 20:33 → DU 23:26 → MU 11-14 11:37 → DU 12-07 19:41
PROVIDERS: Emergency Medicine; Family Medicine; General Practice; Internal Medicine; ADMIT Internal Medicine
PROC: 30233N1 Transfusion of Nonautologous Red Blood Cells into Peripheral Vein, Percutaneous Approach (ICD-10-PCS; 2018-11-10)
PROC: 30233R1 Transfusion of Nonautologous Platelets into Peripheral Vein, Percutaneous Approach (ICD-10-PCS; 2018-11-13)
PROC: 07BH3ZX Excision of Right Inguinal Lymphatic, Percutaneous Approach, Diagnostic (ICD-10-PCS; principal; 2018-11-15)
PROC: 5A12012 Performance of Cardiac Output, Single, Manual (ICD-10-PCS; 2018-12-08)
DX: A41.9 Sepsis, unspecified organism (principal); B20 Human immunodeficiency virus [HIV] disease; R65.21 Severe sepsis with septic shock; E43 Unspecified severe protein-calorie malnutrition; B25.8 Other cytomegaloviral diseases; A04.8 Other specified bacterial intestinal infections; R64 Cachexia; E87.2 Acidosis; D62 Acute posthemorrhagic anemia; B25.9 Cytomegaloviral disease, unspecified; B37.81 Candidal esophagitis; C46.9 Kaposi's sarcoma, unspecified; E83.42 Hypomagnesemia; E83.39 Other disorders of phosphorus metabolism; J45.909 Unspecified asthma, uncomplicated; Z68.1 Body mass index [BMI] 19.9 or less, adult; Z16.30 Resistance to unspecified antimicrobial drugs; Z66 Do not resuscitate
CPT/HCPCS: 36600; 38505; 82962; 86644; 86645; 87046; 87046-59; 87116; 87206; 88344; 97530-GP; B4164; C1751; G0378; J1940; J1956; J2001; J2060; J2270; J2405; J3475; J3480; J3490; J7030; J7040; J7042; J7050; J7070; J7620; J7626; P9016; P9035; P9047; Q0092; Q0163